=== PATIENT | male | born 1960 | race Hispanic/Latino ===

== ENCOUNTER 2019-10-24 23:44 | Inpatient (IN) | payer OTHER ==
[2019-10-25 00:33] LABS: INR 0.94 (0.85-1.15); PARTIAL THROMBOPLASTIN TIME 27.8 SEC (26.3-35.5); PROTHROMBIN TIME 9.9 SEC (9.6-11.6)
[2019-10-25 00:34] LABS: BILIRUBIN,TOTAL 0.3 mg/dL (0.2-1.0); CREATININE 0.9 mg/dL (0.5-1.5); TOTAL PROTEIN, SERUM 6.5 g/dL (6.0-8.3)
[2019-10-25] MEDS ORDERED: SODIUM CHLORIDE 0.9% 1000ML 1,000 ML IV ONE ×2 (00:35→03:10)
[2019-10-25 00:40] LABS: BASOPHILS % (AUTO) 0.2 % (0.0-5.0); EOSINOPHILS % (AUTO) 0.2 % (0.0-8.0); HEMATOCRIT 37.4 % (42-54); LYMPHOCYTES % (AUTO) 22.6 % (21.0-51.0); MEAN CORPUSCULAR HEMOGLOBIN 32.4 pg (27.0-33.0); MEAN CORPUSCULAR HGB CONC 36.1 g/dL (32.0-36.0); MEAN CORPUSCULAR VOLUME 89.7 fL (79-99); NEUTROPHILS % (AUTO) 70.3 % (40.0-77.0); PLATELET COUNT (AUTO) 292 K/uL (130-400); RED BLOOD CELL COUNT(AUTO) 4.17 MIL/uL (4.50-6.20); RED CELL DISTRIBUTION WIDTH 12.1 % (11.0-15.5); WHITE BLOOD COUNT (AUTO) 8.6 K/uL (4.8-10.8)
[2019-10-25] MEDS ORDERED: ASPIRIN 325 MG TABLET ONE (01:47)
[2019-10-25 02:25] LABS: APPEARANCE,URINE Clear (CLEAR); BILIRUBIN,URINE Negative (NEGATIVE); COLOR,URINE Yellow (YELLOW); GLUCOSE, URINE (UA) TRACE mg/dL (NEGATIVE); KETONES,URINE Negative (NEGATIVE); LEUKOCYTE ESTERASE ,URINE Negative (NEGATIVE); NITRATE,URINE Negative (NEGATIVE); OCCULT BLOOD,URINE Trace (NEGATIVE); PH,URINE 6.5 (5.0-8.0); PROTEIN,URINE POS 1+ mg/dL (NEGATIVE); UROBILINOGEN,URINE 0.2 mg/dL (0.2-1.0)
[2019-10-25] MEDS ORDERED: MORPHINE SULFATE 2 MG/ML 1ML SYG IV PRN (02:30)
[2019-10-25] MEDS ORDERED: ONDANSETRON HCL 4 MG/2 ML VIAL IV PRN (02:30)
[2019-10-25] MEDS ORDERED: NITROGLYCERIN 1GM/1 INCH PACKET TD SCH (02:30)
[2019-10-25] MEDS ORDERED: HYDRALAZINE HCL 20 MG/ML VIAL IV PRN (02:30)
[2019-10-25] MEDS ORDERED: CHLORDIAZEPOXIDE HCL 25 MG CAP PO PRN ×2 (02:30)
[2019-10-25] MEDS ORDERED: LORAZEPAM 2 MG/ML 1 ML VIAL IVP PRN ×2 (02:30)
[2019-10-25] MEDS ORDERED: PHARMACY COMMUNICATION MISC PRN (02:30)
[2019-10-25] MEDS ORDERED: LACTULOSE 20 GM/30 ML UDCUP PO PRN (02:30)
[2019-10-25] MEDS ORDERED: ACETAMINOPHEN 325 MG TAB PO PRN ×2 (02:30)
[2019-10-25] MEDS ORDERED: THIAMINE HCL 100 MG, FOLIC ACID 1 MG, M.V.I. IV [ADULT] 10 ML in SODIUM CHLORIDE 0.9% 1... IV SCH (02:30)
[2019-10-25 02:32] LABS: AMPHET/METH SCREEN,URINE NEGATIVE (NEGATIVE); BARBITURATE SCREEN, URINE NEGATIVE (NEGATIVE); BENZODIAZEPINES SCREEN,URINE NEGATIVE (NEGATIVE); CANNABINOID SCREEN,URINE POSITIVE (NEGATIVE); COCAINE SCREEN,URINE NEGATIVE (NEGATIVE); OPIATE SCREEN,URINE NEGATIVE (NEGATIVE); PHENCYCLIDINE SCREEN,URINE NEGATIVE (NEGATIVE)
[2019-10-25 02:34] LABS: BACTERIA,URINE None Seen /HPF (None Seen); RBC,URINE 0-1 /HPF (0-1); WBC,URINE None Seen /HPF (0-1)
[2019-10-25 02:59] LABS: CHOLESTEROL 196 mg/dL (<200); HDL CHOLESTEROL 62 mg/dL (29-71); LDL DIRECT 113 mg/dL (0-99); TRIGLYCERIDES 189 mg/dL (30-200)
[2019-10-25] MEDS ORDERED: THIAMINE HCL 100 MG/ML 2ML VIAL ONE (03:07)
[2019-10-25] MEDS ORDERED: M.V.I. IV [ADULT] 10 ML VIAL IV ONE (03:08)
[2019-10-25] MEDS ORDERED: FOLIC ACID 5 MG/ML 10 ML VIAL ONE (03:09)
[2019-10-25 06:24] LABS: BASOPHILS % (AUTO) 0.2 % (0.0-5.0); EOSINOPHILS % (AUTO) 0.4 % (0.0-8.0); HEMATOCRIT 33.8 % (42-54); LYMPHOCYTES % (AUTO) 22.8 % (21.0-51.0); MEAN CORPUSCULAR HEMOGLOBIN 31.9 pg (27.0-33.0); MEAN CORPUSCULAR HGB CONC 36.1 g/dL (32.0-36.0); MEAN CORPUSCULAR VOLUME 88.5 fL (79-99); MONOCYTES % (AUTO) 6.3 % (3.0-13.0); NEUTROPHILS % (AUTO) 69.7 % (40.0-77.0); PLATELET COUNT (AUTO) 244 K/uL (130-400); RED BLOOD CELL COUNT(AUTO) 3.82 MIL/uL (4.50-6.20); RED CELL DISTRIBUTION WIDTH 12.1 % (11.0-15.5); WHITE BLOOD COUNT (AUTO) 8.2 K/uL (4.8-10.8)
[2019-10-25 07:17] LABS: CREATININE 0.8 mg/dL (0.5-1.5)
[2019-10-25] MEDS ORDERED: INSULIN HUMULIN R 100 UNIT/ML 3ML SQ SCH (07:30)
[2019-10-25] MEDS ORDERED: CHLORDIAZEPOXIDE HCL 25 MG CAP ONE (07:54)
[2019-10-25] MEDS ORDERED: ENOXAPARIN SODIUM 40 MG/0.4 ML SYRINGE SQ SCH (09:00)
[2019-10-25] MEDS ORDERED: ASPIRIN 325 MG TABLET PO SCH (09:00)
[2019-10-25] MEDS ORDERED: METOPROLOL TARTRATE 25 MG TAB PO SCH (09:00)
[2019-10-25] MEDS ORDERED: FAMOTIDINE 20MG TAB 20 MG TAB PO SCH (09:00)
[2019-10-25] MEDS ORDERED: NITROGLYCERIN 1GM/1 INCH PACKET TD ONE (12:47)
[2019-10-25] MEDS ORDERED: FAMOTIDINE 20MG TAB 20 MG TAB ONE (12:47)
[2019-10-25] MEDS ORDERED: ENOXAPARIN SODIUM 40 MG/0.4 ML SYRINGE SQ ONE (12:47)
[2019-10-25] MEDS ORDERED: METOPROLOL TARTRATE 25 MG TAB ONE (12:48)
[2019-10-25] MEDS ORDERED: CLOPIDOGREL BISULFATE 300 MG TAB PO SCH (14:00)
[2019-10-25] MEDS ORDERED: ATORVASTATIN CALCIUM 20 MG TABLET PO SCH (21:00)
[2019-10-26] MEDS ORDERED: CLOPIDOGREL BISULFATE 75 MG TAB PO SCH (09:00)
--- NOTE | 2019-10-26 09:11 | NUR ---
IA NOTE PATIENT DISCHARGED BEFORE I WAS ABLE TO SEE PATIENT. PER NURSE, NO NEEDS OR CONCERNS VOICED REGARDING DISCHARGE PLANNING. PATIENT DISCHARGED HOME. Addendum: 10/26/19 at 0912 by SHANICE FINCH RN CM Amended: Links added.
== END 2019-10-25 14:22 | disposition left against medical advice (07) | DRG 313 ==
LOC: EDH 23:44 → EDHIP 23:45
PROVIDERS: ADMIT Internal Medicine; ATTEND Internal Medicine
DX: R07.9 Chest pain, unspecified (principal); E78.5 Hyperlipidemia, unspecified; I10 Essential (primary) hypertension; F32.9 Major depressive disorder, single episode, unspecified; E11.40 Type 2 diabetes mellitus with diabetic neuropathy, unspecified; Z82.49 Family history of ischemic heart disease and other diseases of the circulatory system; Z83.3 Family history of diabetes mellitus; Z53.29 Procedure and treatment not carried out because of patient's decision for other reasons
CPT/HCPCS: 36415; 70450; 71045; 72125; 80048; 80053; 80061; 80305; 81001; 82550; 83036; 84484; 85025; 85610; 85730; 93005; G0378; G0480; J1650; J3411; J3490; J7030

== ENCOUNTER 2022-12-24 23:22 | Inpatient (IN) | payer OTHER ==
[~2022-12-24] VITALS: Ht 167.6 cm; Wt 54.1 kg
[2022-12-24] MEDS ORDERED: 0.9%NACL 1000ML 1,000 ML IV ONE (23:40)
[2022-12-24] MEDS ORDERED: ACETAMINOPHEN 500 MG TABLET ONE (23:40)
[2022-12-24 23:49] LABS: BASOPHILS % (AUTO) 0.2 % (0.0-5.0); EOSINOPHILS % (AUTO) 0.5 % (0.0-8.0); HEMATOCRIT 34.4 % (42-54); MEAN CORPUSCULAR HGB CONC 33.1 g/dL (32.0-36.0); MEAN CORPUSCULAR VOLUME 90.5 fL (79-99); MONOCYTES % (AUTO) 8.2 % (3.0-13.0); NEUTROPHILS % (AUTO) 79.8 % (40.0-77.0); PLATELET COUNT (AUTO) 246 K/uL (130-400); RED CELL DISTRIBUTION WIDTH 13.5 % (11.0-15.5); WHITE BLOOD COUNT (AUTO) 9.6 K/uL (4.8-10.8)
[2022-12-25] MEDS ORDERED: ACETAMINOPHEN 500 MG TABLET PO ONE
[2022-12-25 00:14] LABS: B-TYPE NATRIURETIC PEPTIDE 3080 pg/mL (0-100)
[2022-12-25 00:23] LABS: ALBUMIN 2.8 g/dL (3.5-5.0); CREATININE 1.6 mg/dL (0.5-1.5); POTASSIUM 4.4 mmol/L (3.5-5.1); TOTAL PROTEIN, SERUM 5.9 g/dL (6.0-8.3)
[2022-12-25] MEDS ORDERED: FUROSEMIDE 40MG VIAL IV ONE (01:00)
[2022-12-25] MEDS ORDERED: MORPHINE 2 MG SYG IV PRN (01:00)
[2022-12-25] MEDS ORDERED: ASPIRIN 325MG TAB PO ONE (01:00)
[2022-12-25] MEDS ORDERED: DIPHENHYDRAMINE HCL 25 MG CAPSULE PO PRN (01:00)
[2022-12-25] MEDS ORDERED: MAG/ALUM/SIMETH 30 ML UDCUP PO PRN (01:00)
[2022-12-25] MEDS ORDERED: LACTULOSE 20 GM/30 ML UDCUP PO PRN (01:00)
[2022-12-25] MEDS ORDERED: ACETAMINOPHEN 325 MG TAB PO PRN (01:00)
[2022-12-25] MEDS ORDERED: GUAIFENESIN-DM 200/20 MG 10 ML PO PRN (01:00)
[2022-12-25] MEDS ORDERED: ENOXAPARIN SODIUM 60 MG/0.6 ML SQ ONE (01:00)
[2022-12-25] MEDS ORDERED: MORPHINE 4 MG SYG IV PRN (01:00)
[2022-12-25] MEDS ORDERED: ONDANSETRON 4MG INJ IV PRN (01:00)
[2022-12-25 01:13] LABS: APPEARANCE,URINE CLEAR (CLEAR); BILIRUBIN,URINE 0.5 mg/dL (NEGATIVE); COLOR,URINE YELLOW (YELLOW); GLUCOSE, URINE (UA) 300 mg/dL (NEGATIVE); KETONES,URINE NEGATIVE (NEGATIVE); LEUKOCYTE ESTERASE ,URINE NEGATIVE Leu/uL (NEGATIVE); NITRATE,URINE NEGATIVE (NEGATIVE); OCCULT BLOOD,URINE MODERATE (NEGATIVE); PROTEIN,URINE 600 mg/dL (NEGATIVE)
[2022-12-25 01:20] LABS: AMPHET/METH SCREEN,URINE NEGATIVE (NEGATIVE); BARBITURATE SCREEN, URINE NEGATIVE (NEGATIVE); BENZODIAZEPINES SCREEN,URINE NEGATIVE (NEGATIVE); CANNABINOID SCREEN,URINE POSITIVE (NEGATIVE); COCAINE SCREEN,URINE POSITIVE (NEGATIVE); OPIATE SCREEN,URINE NEGATIVE (NEGATIVE); PHENCYCLIDINE SCREEN,URINE NEGATIVE (NEGATIVE)
[2022-12-25 01:27] LABS: MUCUS,URINE RARE LPF (None Seen)
[2022-12-25] MEDS ORDERED: NITROGLYCERIN 50MG/D5W 250ML 250 BOT IV SCH (04:34)
[2022-12-25] MEDS ORDERED: ZOSYN 3.375GM+NS 50ML 50 ML IVPB SCH (05:00)
[2022-12-25] MEDS ORDERED: IPRATROPIUM/ALBUTEROL SULFATE 3 ML SOLUTION IH PRN (05:00)
[2022-12-25] MEDS ORDERED: FUROSEMIDE 40MG VIAL IV SCH (05:00)
[2022-12-25] MEDS ORDERED: DEXTROSE 50%-WATER 50 ML DISP.SYRIN IV PRN (06:00)
[2022-12-25] MEDS ORDERED: GLUCAGON 1MG KIT 1 MG ML IM PRN (06:00)
[2022-12-25 07:54] LABS: BASOPHILS % (AUTO) 0.4 % (0.0-5.0); EOSINOPHILS % (AUTO) 1.1 % (0.0-8.0); HEMATOCRIT 35.5 % (42-54); LYMPHOCYTES % (AUTO) 16.2 % (21.0-51.0); MEAN CORPUSCULAR HEMOGLOBIN 30.4 pg (27.0-33.0); MEAN CORPUSCULAR HGB CONC 33.5 g/dL (32.0-36.0); MEAN CORPUSCULAR VOLUME 90.8 fL (79-99); MONOCYTES % (AUTO) 9.2 % (3.0-13.0); NEUTROPHILS % (AUTO) 72.7 % (40.0-77.0); PLATELET COUNT (AUTO) 230 K/uL (130-400); RED BLOOD CELL COUNT(AUTO) 3.91 MIL/uL (4.50-6.20); RED CELL DISTRIBUTION WIDTH 13.5 % (11.0-15.5); WHITE BLOOD COUNT (AUTO) 8.3 K/uL (4.8-10.8)
[2022-12-25 08:17] LABS: HEMOGLOBIN A1C 8.3 % (4.0-6.0)
[2022-12-25 08:27] LABS: ALBUMIN 2.6 g/dL (3.5-5.0); CREATININE 1.6 mg/dL (0.5-1.5); TOTAL PROTEIN, SERUM 6.3 g/dL (6.0-8.3)
[2022-12-25 10:00] VITALS: BP 142/90
[2022-12-25 11:00] VITALS: BP 158/112
[2022-12-25] MEDS ORDERED: HYDRALAZINE 20MG/ML VIAL IV PRN (11:00)
[2022-12-25 12:00] VITALS: BP 148/103
[2022-12-25] MEDS: ZOSYN 3.375GM+NS 50ML 50 ML IVPB SCH ×3 (12:13→21:01)
[2022-12-25] MEDS: FAMOTIDINE 20MG VIAL IV SCH ×2 (12:13→21:02)
[2022-12-25] MEDS: FUROSEMIDE 40MG VIAL IV SCH ×2 (12:13→21:03)
[2022-12-25] MEDS: ASPIRIN 81MG CHEW TAB PO SCH (12:13)
[2022-12-25] MEDS: INSULIN HUMULIN R 100 UNIT/ML 3ML SQ SCH ×4 (12:14→22:09)
[2022-12-25 16:00] VITALS: BP 145/103
[2022-12-25 20:00] VITALS: BP 141/97
[2022-12-25] MEDS: SACUBITRIL/VALSARTAN 1 EACH TABLET PO SCH (21:02)
[2022-12-25] MEDS: ATORVASTATIN 40 MG TABLET PO SCH (21:02)
[2022-12-26] VITALS: BP 148/94
[2022-12-26 04:00] VITALS: BP 148/97
[2022-12-26] MEDS: ZOSYN 3.375GM+NS 50ML 50 ML IVPB SCH ×3 (05:16→20:24)
[2022-12-26] MEDS: INSULIN HUMULIN R 100 UNIT/ML 3ML SQ SCH ×4 (05:20→20:29)
[2022-12-26 07:47] VITALS: BP 144/91
[2022-12-26] MEDS: FAMOTIDINE 20MG VIAL IV SCH (09:10)
[2022-12-26] MEDS: EMPAGLIFLOZIN 10MG TABLET PO SCH (09:10)
[2022-12-26] MEDS: ASPIRIN 81MG CHEW TAB PO SCH (09:10)
[2022-12-26] MEDS: SACUBITRIL/VALSARTAN 1 EACH TABLET PO SCH ×2 (09:11→20:24)
[2022-12-26] MEDS: FUROSEMIDE 40MG VIAL IV SCH ×2 (09:11→20:24)
[2022-12-26 11:37] VITALS: BP 138/90
[2022-12-26 15:59] VITALS: BP 144/91
[2022-12-26] MEDS ORDERED: DULOXETINE HCL 30 MG CAP PO SCH (18:30)
[2022-12-26] MEDS ORDERED: ACETAMINOPHEN 500 MG TABLET PO PRN (18:30)
[2022-12-26 18:37] LABS: BASOPHILS % (AUTO) 0.2 % (0.0-5.0); HEMATOCRIT 44.9 % (42-54); MEAN CORPUSCULAR HEMOGLOBIN 29.7 pg (27.0-33.0); MEAN CORPUSCULAR HGB CONC 32.5 g/dL (32.0-36.0); MEAN CORPUSCULAR VOLUME 91.3 fL (79-99); MONOCYTES % (AUTO) 10.8 % (3.0-13.0); NEUTROPHILS % (AUTO) 74.6 % (40.0-77.0); PLATELET COUNT (AUTO) 280 K/uL (130-400); RED BLOOD CELL COUNT(AUTO) 4.92 MIL/uL (4.50-6.20); RED CELL DISTRIBUTION WIDTH 13.2 % (11.0-15.5); WHITE BLOOD COUNT (AUTO) 8.1 K/uL (4.8-10.8)
[2022-12-26 18:54] LABS: CREATININE 1.7 mg/dL (0.5-1.5); POTASSIUM 5.2 mmol/L (3.5-5.1)
[2022-12-26 18:58] LABS: MAGNESIUM 1.9 mg/dL (1.80-2.40); PHOSPHORUS 3.9 mg/dL (2.5-4.9)
[2022-12-26] MEDS: ALBUTEROL 0.083% 2.5 MG/3 ML INH IH SCH ×2 (19:11→23:55)
[2022-12-26] MEDS: BUDESONIDE 0.5 MG/2 ML INH IH SCH (19:11)
[2022-12-26 19:12] LABS: B-TYPE NATRIURETIC PEPTIDE 3590 pg/mL (0-100)
[2022-12-26 20:00] VITALS: BP 150/99
[2022-12-26] MEDS: ATORVASTATIN 40 MG TABLET PO SCH (20:24)
[2022-12-26] MEDS: SOLU-MEDROL 40MG VIAL IVP SCH (20:24)
[2022-12-26] MEDS: GABAPENTIN 300 MG CAPSULE PO SCH (20:25)
[2022-12-27] VITALS: BP 154/71
[2022-12-27 04:00] VITALS: BP 138/90
[2022-12-27] MEDS: ZOSYN 3.375GM+NS 50ML 50 ML IVPB SCH ×2 (04:29→15:13)
[2022-12-27 05:14] LABS: BASOPHILS % (AUTO) 0.1 % (0.0-5.0); LYMPHOCYTES % (AUTO) 4.9 % (21.0-51.0); MEAN CORPUSCULAR HEMOGLOBIN 29.8 pg (27.0-33.0); MEAN CORPUSCULAR HGB CONC 33.4 g/dL (32.0-36.0); MEAN CORPUSCULAR VOLUME 89.1 fL (79-99); MONOCYTES % (AUTO) 2.4 % (3.0-13.0); NEUTROPHILS % (AUTO) 92.2 % (40.0-77.0); PLATELET COUNT (AUTO) 293 K/uL (130-400); RED BLOOD CELL COUNT(AUTO) 4.94 MIL/uL (4.50-6.20); WHITE BLOOD COUNT (AUTO) 6.7 K/uL (4.8-10.8)
[2022-12-27] MEDS: INSULIN HUMULIN R 100 UNIT/ML 3ML SQ SCH ×3 (05:56→16:49)
[2022-12-27 06:00] LABS: CREATININE 1.5 mg/dL (0.5-1.5); MAGNESIUM 1.9 mg/dL (1.80-2.40); PHOSPHORUS 4.7 mg/dL (2.5-4.9)
[2022-12-27] MEDS: ALBUTEROL 0.083% 2.5 MG/3 ML INH IH SCH (06:29)
[2022-12-27] MEDS: BUDESONIDE 0.5 MG/2 ML INH IH SCH (06:29)
[2022-12-27] MEDS: GLIPIZIDE 5 MG TABLET PO SCH ×2 (06:32→16:47)
[2022-12-27 06:45] LABS: B-TYPE NATRIURETIC PEPTIDE 1680 pg/mL (0-100)
[2022-12-27] MEDS: SOLU-MEDROL 40MG VIAL IVP SCH (07:28)
[2022-12-27] MEDS: FUROSEMIDE 40MG VIAL IV SCH (07:29)
[2022-12-27] MEDS: SACUBITRIL/VALSARTAN 1 EACH TABLET PO SCH (07:29)
[2022-12-27 07:30] VITALS: BP 132/82
[2022-12-27] MEDS: ASPIRIN 81MG CHEW TAB PO SCH (07:30)
[2022-12-27] MEDS: GABAPENTIN 300 MG CAPSULE PO SCH ×2 (07:31→15:14)
[2022-12-27] MEDS: EMPAGLIFLOZIN 10MG TABLET PO SCH (07:31)
[2022-12-27] MEDS ORDERED: FAMOTIDINE 20MG TAB PO SCH (09:00)
[2022-12-27] MEDS ORDERED: DULOXETINE HCL 30 MG CAP PO SCH (09:00)
[2022-12-27 11:00] VITALS: BP 113/80
[2022-12-27] MEDS ORDERED: PRED20TA3 PO (15:05)
[2022-12-27] MEDS ORDERED: GLIP5TAB11 PO (15:05)
[2022-12-27] MEDS ORDERED: ATOR40TA69 PO (15:05)
[2022-12-27] MEDS ORDERED: EMPA10TA PO (15:05)
[2022-12-27] MEDS ORDERED: ASPI-1005 PO (15:05)
[2022-12-27] MEDS ORDERED: SACU1TAB PO (15:05)
[2022-12-27] MEDS ORDERED: DOXY100C5 PO (15:35)
[2022-12-27 16:00] VITALS: BP 121/81
== END 2022-12-27 18:40 | disposition home or self-care (01) | DRG 280 ==
LOC: EDH 23:22 → EDHIP 23:23 → 2CH 12-25 08:24 → 4BH 12-25 18:33
PROVIDERS: ADMIT Internal Medicine; ATTEND Internal Medicine
DX: I13.0 Hypertensive heart and chronic kidney disease with heart failure and stage 1 through stage 4 chronic kidney disease, or unspecified chronic kidney disease (principal); I50.43 Acute on chronic combined systolic (congestive) and diastolic (congestive) heart failure; I21.A1 Myocardial infarction type 2; N17.9 Acute kidney failure, unspecified; Z20.822 Contact with and (suspected) exposure to COVID-19; J44.1 Chronic obstructive pulmonary disease with (acute) exacerbation; I27.20 Pulmonary hypertension, unspecified; E11.22 Type 2 diabetes mellitus with diabetic chronic kidney disease; E11.65 Type 2 diabetes mellitus with hyperglycemia; E78.00 Pure hypercholesterolemia, unspecified; F12.10 Cannabis abuse, uncomplicated; F14.10 Cocaine abuse, uncomplicated; G89.29 Other chronic pain; I34.0 Nonrheumatic mitral (valve) insufficiency; N18.9 Chronic kidney disease, unspecified; Z59.00 Homelessness unspecified; Z72.0 Tobacco use; Z79.84 Long term (current) use of oral hypoglycemic drugs; Z79.899 Other long term (current) drug therapy; Z82.49 Family history of ischemic heart disease and other diseases of the circulatory system; Z91.199 Patient's noncompliance with other medical treatment and regimen due to unspecified reason; Z83.3 Family history of diabetes mellitus; Z86.73 Personal history of transient ischemic attack (TIA), and cerebral infarction without residual deficits
CPT/HCPCS: 36415; 71045; 80048; 80053; 80305; 81001; 82948; 83036; 83605; 83735; 83880; 84100; 84145; 84484; 85025; 87040; 87635; 87804; 93005; 94640; C9803; G0378; J1650; J1815; J1940; J2543; J2920; J3490; J7030

== ENCOUNTER 2023-02-15 03:42 | Inpatient (IN) | payer OTHER ==
[~2023-02-15] VITALS: Ht 167.6 cm; Wt 59.2 kg
[~2023-02-15 03:42] MED LIST: ASPI-1005 PO; ATOR40TA69 PO; EMPA10TA PO; GLIP5TAB11 PO; SACU1TAB PO
[2023-02-15 04:14] LABS: BASOPHILS % (AUTO) 0.2 % (0.0-5.0); EOSINOPHILS % (AUTO) 0.5 % (0.0-8.0); HEMATOCRIT 31.2 % (42-54); LYMPHOCYTES % (AUTO) 20.3 % (21.0-51.0); MEAN CORPUSCULAR HEMOGLOBIN 27.6 pg (27.0-33.0); MEAN CORPUSCULAR HGB CONC 32.7 g/dL (32.0-36.0); MEAN CORPUSCULAR VOLUME 84.6 fL (79-99); MONOCYTES % (AUTO) 13.2 % (3.0-13.0); NEUTROPHILS % (AUTO) 65.3 % (40.0-77.0); PLATELET COUNT (AUTO) 228 K/uL (130-400); RED BLOOD CELL COUNT(AUTO) 3.69 MIL/uL (4.50-6.20); RED CELL DISTRIBUTION WIDTH 13.9 % (11.0-15.5); WHITE BLOOD COUNT (AUTO) 6.2 K/uL (4.8-10.8)
[2023-02-15 04:31] LABS: ALBUMIN 2.7 g/dL (3.5-5.0); CREATININE 1.8 mg/dL (0.5-1.5); POTASSIUM 4.9 mmol/L (3.5-5.1); TOTAL PROTEIN, SERUM 5.8 g/dL (6.0-8.3)
[2023-02-15 04:56] LABS: APPEARANCE,URINE CLEAR (CLEAR); BILIRUBIN,URINE NEGATIVE (NEGATIVE); COLOR,URINE LIGHT-YELLOW (YELLOW); GLUCOSE, URINE (UA) >=1000 mg/dL (NEGATIVE); KETONES,URINE NEGATIVE (NEGATIVE); LEUKOCYTE ESTERASE ,URINE NEGATIVE Leu/uL (NEGATIVE); NITRATE,URINE NEGATIVE (NEGATIVE); OCCULT BLOOD,URINE SMALL (NEGATIVE); PH,URINE 5.5 (5.0-8.0); PROTEIN,URINE 200 mg/dL (NEGATIVE); UROBILINOGEN,URINE 0.2 mg/dL (0.2-1.0)
[2023-02-15] MEDS ORDERED: NITROGLYCERIN 1GM OINT 1 INCH/1GM TD ONE (05:00)
[2023-02-15] MEDS ORDERED: ASPIRIN 325MG TAB PO ONE (05:00)
[2023-02-15] MEDS ORDERED: INSULIN HUMULIN R 100 UNIT/ML 3ML IV ONE (05:00)
[2023-02-15 05:01] LABS: AMPHET/METH SCREEN,URINE NEGATIVE (NEGATIVE); BARBITURATE SCREEN, URINE NEGATIVE (NEGATIVE); BENZODIAZEPINES SCREEN,URINE NEGATIVE (NEGATIVE); CANNABINOID SCREEN,URINE POSITIVE (NEGATIVE); COCAINE SCREEN,URINE POSITIVE (NEGATIVE); OPIATE SCREEN,URINE NEGATIVE (NEGATIVE); PHENCYCLIDINE SCREEN,URINE NEGATIVE (NEGATIVE)
[2023-02-15] MEDS ORDERED: KCL 20 MEQ ERTAB PO PRN (06:00)
[2023-02-15] MEDS ORDERED: POTASSIUM CHLORIDE 20MEQ/100ML 100 ML IV PRN (06:00)
[2023-02-15] MEDS: NITROGLYCERIN 1GM OINT 1 INCH/1GM TD SCH ×3 (06:00→20:39)
[2023-02-15] MEDS ORDERED: MORPHINE 2 MG SYG IV PRN (06:00)
[2023-02-15] MEDS ORDERED: MAGNESIUM 2GM PREMIX 50ML 50 ML IV PRN (06:00)
[2023-02-15] MEDS ORDERED: ACETAMINOPHEN 325 MG TAB PO PRN ×2 (06:00)
[2023-02-15] MEDS ORDERED: POTASSIUM CHLORIDE 10% ELIXIR 20 MEQ/15 ML UDCUP PO PRN (06:00)
[2023-02-15] MEDS ORDERED: ONDANSETRON 4MG INJ IV PRN (06:00)
[2023-02-15] MEDS ORDERED: MORPHINE 4 MG SYG IV PRN (06:00)
[2023-02-15] MEDS ORDERED: HEPARIN 5,000 UNIT VIAL SQ PRN (06:30)
[2023-02-15] MEDS: HEPARIN 25,000 UNITS/250ML D5W 250 ML IV SCH ×3 (07:03→20:39)
[2023-02-15 07:16] LABS: ABG OXYGEN SATURATION 56.1 % (95.0-99.0); BASE EXCESS,VENOUS BLOOD GAS -5.7 (-2.0-3.0); HCO3,VENOUS BLOOD GAS 19.7 (21.0-28.0); PCO2,VENOUS BLOOD GAS 38 (35-48); PH,VENOUS BLOOD GAS 7.328 (7.350-7.450)
[2023-02-15] MEDS: INSULIN HUMULIN R 100 UNIT/ML 3ML SQ SCH ×4 (07:30→20:48)
[2023-02-15] MEDS ORDERED: FUROSEMIDE 40 MG TABLET PO SCH (09:00)
[2023-02-15] MEDS: ASPIRIN 81MG CHEW TAB PO SCH (09:24)
[2023-02-15] MEDS: FAMOTIDINE 20MG TAB PO SCH (09:24)
[2023-02-15 11:45] LABS: PROTHROMBIN TIME 10.9 SEC (9.6-11.6)
[2023-02-15 11:46] LABS: PARTIAL THROMBOPLASTIN TIME 58.6 SEC (26.3-35.5)
[2023-02-15 12:21] LABS: CREATININE,URINE RANDOM 10 mg/dL (30-135); POTASSIUM,URINE RANDOM 16 mmol/L (25-125); SODIUM,URINE RANDOM 116 mmol/l (40-220)
[2023-02-15 13:06] LABS: APPEARANCE,URINE CLEAR (CLEAR); BILIRUBIN,URINE NEGATIVE (NEGATIVE); COLOR,URINE COLORLESS (YELLOW); GLUCOSE, URINE (UA) NEGATIVE (NEGATIVE); KETONES,URINE NEGATIVE (NEGATIVE); LEUKOCYTE ESTERASE ,URINE NEGATIVE Leu/uL (NEGATIVE); NITRATE,URINE NEGATIVE (NEGATIVE); PROTEIN,URINE 50 mg/dL (NEGATIVE); UROBILINOGEN,URINE 0.2 mg/dL (0.2-1.0)
[2023-02-15 13:08] LABS: MUCUS,URINE RARE LPF (None Seen); RBC,URINE 0-1 /HPF (0-1); WBC,URINE 0-1 /HPF (0-1)
[2023-02-15 13:24] LABS: HEMOGLOBIN A1C 10.7 % (4.0-6.0)
[2023-02-15 18:35] LABS: INR 0.98 (0.85-1.15); PROTHROMBIN TIME 10.7 SEC (9.6-11.6)
[2023-02-15 19:00] VITALS: BP 126/103
[2023-02-15] MEDS: FUROSEMIDE 20MG VIAL IV SCH (20:39)
[2023-02-15 21:42] VITALS: BP 140/99
[2023-02-16] VITALS: BP 126/92
[2023-02-16] MEDS: HEPARIN 25,000 UNITS/250ML D5W 250 ML IV SCH ×2 (00:30→05:17)
[2023-02-16 00:39] LABS: INR 0.99 (0.85-1.15); PROTHROMBIN TIME 10.8 SEC (9.6-11.6)
[2023-02-16 00:41] LABS: PARTIAL THROMBOPLASTIN TIME 39.6 SEC (26.3-35.5)
[2023-02-16 04:00] VITALS: BP 133/97
[2023-02-16 04:35] LABS: BASOPHILS % (AUTO) 0.4 % (0.0-5.0); EOSINOPHILS % (AUTO) 1.5 % (0.0-8.0); LYMPHOCYTES % (AUTO) 23.7 % (21.0-51.0); MEAN CORPUSCULAR HEMOGLOBIN 27.6 pg (27.0-33.0); MEAN CORPUSCULAR HGB CONC 32.9 g/dL (32.0-36.0); MEAN CORPUSCULAR VOLUME 83.9 fL (79-99); MONOCYTES % (AUTO) 9.6 % (3.0-13.0); NEUTROPHILS % (AUTO) 64.1 % (40.0-77.0); PLATELET COUNT (AUTO) 297 K/uL (130-400); RED BLOOD CELL COUNT(AUTO) 4.17 MIL/uL (4.50-6.20); RED CELL DISTRIBUTION WIDTH 14.1 % (11.0-15.5); WHITE BLOOD COUNT (AUTO) 7.5 K/uL (4.8-10.8)
[2023-02-16 04:53] LABS: ALBUMIN 2.7 g/dL (3.5-5.0); CREATININE 1.3 mg/dL (0.5-1.5); POTASSIUM 4.1 mmol/L (3.5-5.1); THYROID STIMULATING HORMONE 3.74 uIU/mL (0.36-3.74)
[2023-02-16] MEDS: NITROGLYCERIN 1GM OINT 1 INCH/1GM TD SCH (05:07)
[2023-02-16] MEDS: INSULIN HUMULIN R 100 UNIT/ML 3ML SQ SCH ×4 (05:16→20:38)
[2023-02-16 06:05] LABS: PROTHROMBIN TIME 10.9 SEC (9.6-11.6)
[2023-02-16 06:06] LABS: PARTIAL THROMBOPLASTIN TIME 42.2 SEC (26.3-35.5)
[2023-02-16] MEDS: FUROSEMIDE 20MG VIAL IV SCH (06:21)
[2023-02-16 08:00] VITALS: BP 144/110
[2023-02-16] MEDS: ASPIRIN 81MG CHEW TAB PO SCH (08:57)
[2023-02-16] MEDS: FAMOTIDINE 20MG TAB PO SCH (08:57)
[2023-02-16] MEDS ORDERED: AMLODIPINE 2.5 MG TAB PO SCH (09:00)
[2023-02-16] MEDS ORDERED: METOPROLOL SUCCINATE 25 MG TAB.SR.24H PO SCH (09:30)
[2023-02-16 12:00] VITALS: BP 136/95
[2023-02-16 12:17] LABS: INR 0.95 (0.85-1.15); PROTHROMBIN TIME 10.4 SEC (9.6-11.6)
[2023-02-16 12:19] LABS: CREATININE 1.5 mg/dL (0.5-1.5); PARTIAL THROMBOPLASTIN TIME 25.4 SEC (26.3-35.5); POTASSIUM 5.2 mmol/L (3.5-5.1)
[2023-02-16 16:00] VITALS: BP 128/91
[2023-02-16 20:00] VITALS: BP 126/84
[2023-02-16] MEDS ORDERED: LOSARTAN 25 MG TABLET PO SCH (21:00)
[2023-02-17] VITALS: BP 102/71
[2023-02-17 04:00] VITALS: BP 112/75
[2023-02-17 04:28] LABS: HEMATOCRIT 33.4 % (42-54); MEAN CORPUSCULAR HEMOGLOBIN 26.8 pg (27.0-33.0); MEAN CORPUSCULAR HGB CONC 31.4 g/dL (32.0-36.0); MEAN CORPUSCULAR VOLUME 85.2 fL (79-99); RED BLOOD CELL COUNT(AUTO) 3.92 MIL/uL (4.50-6.20); RED CELL DISTRIBUTION WIDTH 14.2 % (11.0-15.5); WHITE BLOOD COUNT (AUTO) 5.9 K/uL (4.8-10.8)
[2023-02-17 04:53] LABS: CREATININE 1.5 mg/dL (0.5-1.5); POTASSIUM 4.5 mmol/L (3.5-5.1)
[2023-02-17] MEDS: INSULIN HUMULIN R 100 UNIT/ML 3ML SQ SCH ×3 (05:37→15:45)
[2023-02-17] MEDS: FAMOTIDINE 20MG TAB PO SCH (07:39)
[2023-02-17] MEDS: ASPIRIN 81MG CHEW TAB PO SCH (07:39)
[2023-02-17 08:00] VITALS: BP 132/87
[2023-02-17] MEDS ORDERED: FUROSEMIDE 40 MG TABLET PO SCH (09:00)
[2023-02-17] MEDS ORDERED: ENOXAPARIN SODIUM 40 MG/0.4 ML SYRINGE SQ SCH (09:00)
[2023-02-17] MEDS ORDERED: ASPIRIN 81MG CHEW TAB PO SCH (09:00)
[2023-02-17 11:00] VITALS: BP 137/94
[2023-02-17] MEDS ORDERED: EMPA10TA PO (12:57)
[2023-02-17] MEDS ORDERED: ATOR40TA71 PO (12:57)
[2023-02-17] MEDS ORDERED: GLIP5TAB11 PO (12:57)
[2023-02-17] MEDS ORDERED: FURO40TA5 PO (12:57)
[2023-02-17] MEDS ORDERED: AEC81 PO (12:57)
[2023-02-17] MEDS ORDERED: SACU1TAB PO (12:57)
== END 2023-02-17 17:50 | disposition home or self-care (01) | DRG 280 ==
LOC: EDH 03:42 → EDHIP 03:43 → 4BH 19:22
PROVIDERS: ADMIT Hospitalist; ATTEND Hospitalist
DX: I13.0 Hypertensive heart and chronic kidney disease with heart failure and stage 1 through stage 4 chronic kidney disease, or unspecified chronic kidney disease (principal); I21.A1 Myocardial infarction type 2; I50.43 Acute on chronic combined systolic (congestive) and diastolic (congestive) heart failure; E87.1 Hypo-osmolality and hyponatremia; E87.20 Acidosis, unspecified; N17.9 Acute kidney failure, unspecified; I42.9 Cardiomyopathy, unspecified; J44.9 Chronic obstructive pulmonary disease, unspecified; E11.65 Type 2 diabetes mellitus with hyperglycemia; D64.9 Anemia, unspecified; E11.22 Type 2 diabetes mellitus with diabetic chronic kidney disease; E78.00 Pure hypercholesterolemia, unspecified; F12.90 Cannabis use, unspecified, uncomplicated; F14.10 Cocaine abuse, uncomplicated; N18.9 Chronic kidney disease, unspecified; Z59.00 Homelessness unspecified; Z72.0 Tobacco use; Z79.82 Long term (current) use of aspirin; Z82.49 Family history of ischemic heart disease and other diseases of the circulatory system; Z83.3 Family history of diabetes mellitus; Z91.199 Patient's noncompliance with other medical treatment and regimen due to unspecified reason; Z95.5 Presence of coronary angioplasty implant and graft
CPT/HCPCS: 36415; 36600; 71045; 80048; 80053; 80305; 81001; 82010; 82533; 82570; 82803; 82948; 83036; 83605; 83735; 83880; 83935; 84100; 84133; 84300; 84443; 84484; 84550; 85025; 85027; 85610; 85730; 86850; 86900; 86901; 93005; G0378; J1644; J1650; J1815; J1940

== ENCOUNTER 2023-03-22 08:06 | Inpatient (IN) | payer OTHER ==
[~2023-03-22] VITALS: Ht 167.6 cm; Wt 55.2 kg
[~2023-03-22 08:06] MED LIST changes: +AEC81 PO; -ASPI-1005 PO; -ATOR40TA69 PO; +ATOR40TA71 PO; +FURO40TA5 PO
[2023-03-22 08:31] LABS: BASOPHILS % (AUTO) 0.4 % (0.0-5.0); EOSINOPHILS % (AUTO) 0.9 % (0.0-8.0); HEMATOCRIT 35.9 % (42-54); LYMPHOCYTES % (AUTO) 18.5 % (21.0-51.0); MEAN CORPUSCULAR HEMOGLOBIN 27.2 pg (27.0-33.0); MEAN CORPUSCULAR HGB CONC 31.5 g/dL (32.0-36.0); MEAN CORPUSCULAR VOLUME 86.5 fL (79-99); MONOCYTES % (AUTO) 14.4 % (3.0-13.0); NEUTROPHILS % (AUTO) 65.1 % (40.0-77.0); PLATELET COUNT (AUTO) 157 K/uL (130-400); RED BLOOD CELL COUNT(AUTO) 4.15 MIL/uL (4.50-6.20); RED CELL DISTRIBUTION WIDTH 19.3 % (11.0-15.5); WHITE BLOOD COUNT (AUTO) 5.6 K/uL (4.8-10.8)
[2023-03-22 08:45] LABS: ALBUMIN 3.6 g/dL (3.5-5.0); CREATININE 1.8 mg/dL (0.5-1.5); POTASSIUM 5.4 mmol/L (3.5-5.1)
[2023-03-22 08:53] LABS: MAGNESIUM 2.1 mg/dL (1.80-2.40); TOTAL PROTEIN, SERUM 7.3 g/dL (6.0-8.3)
[2023-03-22 08:56] LABS: APPEARANCE,URINE CLEAR (CLEAR); BILIRUBIN,URINE NEGATIVE (NEGATIVE); COLOR,URINE LIGHT-YELLOW (YELLOW); GLUCOSE, URINE (UA) NEGATIVE (NEGATIVE); KETONES,URINE NEGATIVE (NEGATIVE); LEUKOCYTE ESTERASE ,URINE NEGATIVE Leu/uL (NEGATIVE); NITRATE,URINE NEGATIVE (NEGATIVE); PROTEIN,URINE 200 mg/dL (NEGATIVE)
[2023-03-22 09:13] LABS: WBC,URINE 0-1 /HPF (0-1)
[2023-03-22 09:49] LABS: B-TYPE NATRIURETIC PEPTIDE 2250 pg/mL (0-100)
[2023-03-22] MEDS ORDERED: ASPIRIN 325MG TAB PO ONE (10:00)
[2023-03-22] MEDS ORDERED: FUROSEMIDE 20MG VIAL IV ONE (10:00)
[2023-03-22] MEDS ORDERED: NITROGLYCERIN 1GM OINT 1 INCH/1GM TD ONE (10:00)
[2023-03-22 10:21] LABS: AMPHET/METH SCREEN,URINE NEGATIVE (NEGATIVE); BARBITURATE SCREEN, URINE NEGATIVE (NEGATIVE); BENZODIAZEPINES SCREEN,URINE NEGATIVE (NEGATIVE); CANNABINOID SCREEN,URINE POSITIVE (NEGATIVE); COCAINE SCREEN,URINE POSITIVE (NEGATIVE); OPIATE SCREEN,URINE NEGATIVE (NEGATIVE); PHENCYCLIDINE SCREEN,URINE NEGATIVE (NEGATIVE)
[2023-03-22] MEDS ORDERED: MORPHINE 2 MG SYG IVP ONE (10:30)
[2023-03-22] MEDS ORDERED: KCL 20 MEQ ERTAB PO PRN (10:30)
[2023-03-22] MEDS ORDERED: POTASSIUM CHLORIDE 10% ELIXIR 20 MEQ/15 ML UDCUP PO PRN (10:30)
[2023-03-22] MEDS ORDERED: MAGNESIUM 2GM PREMIX 50ML 50 ML IV PRN (10:30)
[2023-03-22] MEDS ORDERED: POTASSIUM CHLORIDE 20MEQ/100ML 100 ML IV PRN (10:30)
[2023-03-22] MEDS: FUROSEMIDE 20MG VIAL IV SCH ×2 (11:00→22:15)
[2023-03-22] MEDS ORDERED: FUROSEMIDE 40MG VIAL IV SCH (11:00)
[2023-03-22] MEDS ORDERED: FAMOTIDINE 20MG VIAL IV ONE (11:00)
[2023-03-22] MEDS: HEPARIN 5,000 UNIT VIAL SQ SCH ×2 (11:21→22:09)
[2023-03-22] MEDS: INSULIN HUMULIN R 100 UNIT/ML 3ML SQ SCH ×3 (11:28→20:33)
[2023-03-22] MEDS ORDERED: SODIUM ZIRCONIUM CYCLOSILICATE 5 GM POWD.PACK PO ONE (11:30)
[2023-03-22] MEDS ORDERED: ACETAMINOPHEN 325 MG TAB PO PRN (11:30)
[2023-03-22] MEDS ORDERED: ONDANSETRON 4MG INJ IVP PRN (11:30)
[2023-03-22 13:34] VITALS: BP 152/92
[2023-03-22 16:02] VITALS: BP 145/91
[2023-03-22 19:06] VITALS: BP 132/87
[2023-03-22] MEDS ORDERED: GLUCAGON 1MG KIT 1 MG ML IM PRN (20:00)
[2023-03-22] MEDS ORDERED: DEXTROSE 50%-WATER 50 ML DISP.SYRIN IV PRN (20:00)
[2023-03-22] MEDS ORDERED: ATORVASTATIN 40 MG TABLET PO SCH (21:00)
[2023-03-22 22:57] VITALS: BP 144/92
[2023-03-22 23:21] LABS: POTASSIUM 4.5 mmol/L (3.5-5.1)
[2023-03-23 03:30] VITALS: BP 138/90
[2023-03-23 06:02] LABS: BASOPHILS % (AUTO) 0.4 % (0.0-5.0); EOSINOPHILS % (AUTO) 1.6 % (0.0-8.0); HEMATOCRIT 35.3 % (42-54); LYMPHOCYTES % (AUTO) 15.9 % (21.0-51.0); MEAN CORPUSCULAR HEMOGLOBIN 27.4 pg (27.0-33.0); MEAN CORPUSCULAR VOLUME 85.5 fL (79-99); MONOCYTES % (AUTO) 9.6 % (3.0-13.0); NEUTROPHILS % (AUTO) 71.9 % (40.0-77.0); PLATELET COUNT (AUTO) 176 K/uL (130-400); RED BLOOD CELL COUNT(AUTO) 4.13 MIL/uL (4.50-6.20); RED CELL DISTRIBUTION WIDTH 19.2 % (11.0-15.5); WHITE BLOOD COUNT (AUTO) 5.1 K/uL (4.8-10.8)
[2023-03-23] MEDS: INSULIN HUMULIN R 100 UNIT/ML 3ML SQ SCH ×2 (06:15→11:02)
[2023-03-23 06:25] LABS: B-TYPE NATRIURETIC PEPTIDE 2630 pg/mL (0-100)
[2023-03-23 06:36] LABS: ALBUMIN 3.2 g/dL (3.5-5.0); CREATININE 1.5 mg/dL (0.5-1.5); MAGNESIUM 1.9 mg/dL (1.80-2.40); POTASSIUM 4.2 mmol/L (3.5-5.1); THYROID STIMULATING HORMONE 2.06 uIU/mL (0.36-3.74); TOTAL PROTEIN, SERUM 6.7 g/dL (6.0-8.3)
[2023-03-23] MEDS ORDERED: MAGNESIUM 2GM PREMIX 50ML 50 ML IV PRN (07:00)
[2023-03-23 08:00] VITALS: BP 148/93
[2023-03-23] MEDS: FUROSEMIDE 20MG VIAL IV SCH (08:24)
[2023-03-23] MEDS ORDERED: SACUBITRIL/VALSARTAN 1 EACH TABLET PO SCH (09:00)
[2023-03-23] MEDS ORDERED: ASPIRIN 81 MG EC TAB PO SCH (09:00)
[2023-03-23] MEDS ORDERED: ATOR40TA69 PO (09:40)
[2023-03-23] MEDS ORDERED: SACU1TAB PO (09:40)
[2023-03-23] MEDS ORDERED: FURO20TA4 PO (09:40)
[2023-03-23] MEDS ORDERED: AEC81 PO (09:40)
[2023-03-23] MEDS ORDERED: FAMOTIDINE 20MG VIAL IV SCH (11:00)
[2023-03-23] MEDS: HEPARIN 5,000 UNIT VIAL SQ SCH (11:00)
[2023-03-23 11:19] VITALS: BP 149/80
== END 2023-03-23 12:20 | disposition home or self-care (01) | DRG 280 ==
LOC: EDH 08:06 → EDHIP 08:07 → 4BH 13:04
PROVIDERS: ADMIT Internal Medicine; ATTEND Internal Medicine
DX: I13.0 Hypertensive heart and chronic kidney disease with heart failure and stage 1 through stage 4 chronic kidney disease, or unspecified chronic kidney disease (principal); I21.A1 Myocardial infarction type 2; I50.43 Acute on chronic combined systolic (congestive) and diastolic (congestive) heart failure; E87.1 Hypo-osmolality and hyponatremia; F14.20 Cocaine dependence, uncomplicated; Z20.822 Contact with and (suspected) exposure to COVID-19; N17.9 Acute kidney failure, unspecified; D64.9 Anemia, unspecified; I42.9 Cardiomyopathy, unspecified; E11.22 Type 2 diabetes mellitus with diabetic chronic kidney disease; E78.00 Pure hypercholesterolemia, unspecified; E87.5 Hyperkalemia; F12.20 Cannabis dependence, uncomplicated; F20.9 Schizophrenia, unspecified; F43.10 Post-traumatic stress disorder, unspecified; I16.0 Hypertensive urgency; N18.9 Chronic kidney disease, unspecified; I25.10 Atherosclerotic heart disease of native coronary artery without angina pectoris; I25.2 Old myocardial infarction; Z59.00 Homelessness unspecified; Z79.82 Long term (current) use of aspirin; Z79.899 Other long term (current) drug therapy; Z82.49 Family history of ischemic heart disease and other diseases of the circulatory system; Z83.3 Family history of diabetes mellitus; Z91.199 Patient's noncompliance with other medical treatment and regimen due to unspecified reason
CPT/HCPCS: 36415; 71045; 80053; 80305; 81001; 82533; 82550; 82948; 83735; 83880; 84132; 84443; 84484; 85025; 87635; 87804; 93005; C9803; G0378; J1644; J1940; J2270; J3490

== ENCOUNTER 2024-07-24 19:16 | Inpatient (IN) | payer OTHER ==
[~2024-07-24] VITALS: Ht 167.6 cm; Wt 59.1 kg
[~2024-07-24 19:16] MED LIST changes: +CLOP-31 PO; -EMPA10TA PO; -FURO40TA5 PO; -GLIP5TAB11 PO; +NITR0.4T50 SL; -SACU1TAB PO
--- NOTE | 2024-07-24 19:53 | EKG ---
[facility] Test Date: 2024-07-24 Test Time: 19:28:51 Pat Name: DIANELYS ALMODOVAR Department: [facility] Room: ED Gender: M Solutions Delivery Consultant: [id number] : 1960 Requested By: JOSE L BAILEY Order Number: [id number] Reading MD: Sergio Moreira Measurements Intervals [place] Rate: 83 P: 47 ID: [id number] QRS: 110 QRSD: 112 T: 18 QT: 381 QTc: 448 Interpretive Statements Sinus rhythm ANTEROSEPTAL INFARCT, AGE INDETERMINATE Compared to ECG 06/01/2024 11:25:59 Atrial premature complex(es) no longer present Left-axis deviation no longer present Electronically Signed On 07-25-2024 14:46:47 POOL HALL INSPECTOR by Sergio Moreira Please click the below link to view image of tracing.
--- NOTE | 2024-07-24 20:16 | ERN ---
ED Note History of Present Illness Stated Complaint: CHEST PAIN Chief Complaint: Chest Pain Time Seen by MD: 20:03 Dictation: This is a 63-year-old homeless male with multiple medical problems came into the ER with complaints of chest pain which feels like a pressure for over 2 hours. shortness of breath for 3-4 days associated with cough and mucopurulent sputum. He is very noncompliant with any medications he stated that he stayed in bed for 3-4 days. He also reports increasing lower extremity edema. It is hard to understand him as he is edentulous. He has a history of polysubstance abuse and his last crack cocaine was last night. He received aspirin and sublingual nitro per EMS. He had exactly similar presentation in June Temperature 98.6 pulse 82 respirations 16 blood pressure 131/93 with a pulse oximetry of 96% on room air His chronic medical problems include diabetes mellitus, hypertension, hyp ercholesterolemia and history of a CHF chronic anemia Allergies: Coded Allergies: No Known Allergies (Verified Allergy, Unknown, 10/25/19) Home Meds Active Scripts Clopidogrel Bisulfate (Plavix) 75 Mg Tablet, 75 MG PO DAILY for 30 Days, #30 TAB Prov:MARCELINA RODRIGUEZ NP 06/02/24 Nitroglycerin (Nitroglycerin) 0.4 Mg Tab.subl, 0.4 MG SL [id number] PRN for chest pain, #30 TAB.SL 1 Refill Prov:MARY LU MD 11/28/23 Aspirin (ASPIRIN 81 MG ECTAB) 81 Mg Ectab, 81 MG PO DAILY for 30 Days, #30 TAB.EC 2 Refills Prov:MARY LU MD 11/28/23 Atorvastatin Calcium (Atorvastatin Calcium) 40 Mg Tablet, 40 MG PO HS for 30 Days, #90 TAB 3 Refills Prov:MARY LU MD 11/28/23 Past Medical History Past Medical History: CHF, CVA, Diabetes-Type II, High Cholesterol, Hypertension, MS Additional Past Medical Hx: CHRONIC BACK PAIN, PTSD Surgical History: Other Surgical History Other: BACK;LEFT SHOULDER Family History: CAD, DM, HTN Social History: Smokers, Drugs, Other RN Note Reviewed/Agreed w/PFSH: Yes Review of System Dictation Constitutional: Negative for fever,chills, and weight loss Eyes: Negative for injury, pain,redness, and discharge ENT: Negative for injury,pain or swelling Cardiovascular: Positive for chest pain, and edema Respiratory: Positive for shortness of breath, cough, and wheezing, Abdomen/GI: Negative for abdominal pain, nausea, vomiting, diarrhea, and constipation Back: Negative for injury and pain : Negative for injury, bleeding and discharge MS/Extremity: Negative for injury and deformity Skin: Negative for rash, and discoloration Neuro: Negative for headache, weakness, numbness, tingling, and seizure Psych: Negative for suicide ideation, homicidal ideation, and hallucinations Initial Vital Sign VS Vital Signs Date Time Temp Pulse Resp B/P (MAP) Pulse Ox O2 Delivery O2 Flow Rate FiO2 07/24/24 19:18 98.6 82 16 131/93 96 Room Air* 0 21 Physical Exam Dictation General: awake, alert, NAD very unkempt chronically ill-appearing emaciated male Head/Face: Normocephalic, atraumatic Eyes: PERRL, EOMI, vision at baseline ENT: oral cavity clear, TMs clear, no signs of infection poor dentition and missing teeth Neck: Trachea midline, supple, no nuchal rigidity Cardiovascular: RRR, normal S1/S2, No MRGs, no JVD Respiratory: Decreased breath sounds bilaterally with coarse rhonchi Abdomen: Soft, non-tender, non-distended, normal bowel sounds, no guarding or rebound. Skin: Warm, dry, normal turgor, no rash MS/Extremity: Pulses equal, no cyanosis, neurovascular intact, FROM feet extensive scaling and fungal rash in the intertriginous areas and foul smell. Neuro: COAx4, GCS 15, strength 5/5, CN 2-12 intact, normal cerebellar exam, normal gait, Psych: Normal behavior, mood, and affect normal Extremities-1+ pitting edema without any palpable cords, Homans sign is negative Results (Laboratory/Radiology) Laboratory/Radiology Laboratory Tests Test 07/24/24 19:38 07/24/24 20:52 White Blood Count 4.9 K/uL (4.8-10.8) Red Blood Count 4.23 MIL/uL (4.50-6.20) L Hemoglobin 10.8 g/dL (14.0-18.0) L Hematocrit 34.3 % (42-54) L Mean Corpuscular Volume 81.1 fL (79-99) Mean Corpuscular Hemoglobin 25.5 pg (27.0-33.0) L Mean Corpuscular Hemoglobin Concent 31.5 g/dL (32.0-36.0) L Red Cell Distribution Width 18.9 % (11.0-15.5) H Platelet Count 215 K/uL (130-400) Mean Platelet Volume 10.0 fL (7.5-10.5) Immature Granulocyte % (Auto) 0.4 % (0-1) Neutrophils (%) (Auto) 73.6 % (40.0-77.0) Lymphocytes (%) (Auto) 13.4 % (21.0-51.0) L Monocytes (%) (Auto) 12.0 % (3.0-13.0) Eosinophils (%) (Auto) 0.2 % (0.0-8.0) Basophils (%) (Auto) 0.4 % (0.0-5.0) Neutrophils # (Auto) 3.6 K/uL (1.8-7.7) Lymphocytes # (Auto) 0.7 K/uL (1.0-4.8) L Monocytes # (Auto) 0.6 K/uL (0.1-1.0) Eosinophils # (Auto) 0.01 K/uL (0.00-0.70) Basophils # (Auto) 0.02 K/uL (0.00-0.20) Absolute Immature Granulocyte (auto 0.02 K/uL (0-1) Nucleated Red Blood Cells 0.0 % (0.0-0.19) Red Blood Cell Morphology ANISO 1+ Sodium Level 134 mmol/L (136-145) L Potassium Level 4.6 mmol/L (3.5-5.1) Chloride Level 101 mmol/L (101-111) Carbon Dioxide Level 23 mmol/L (21-32) Blood Urea Nitrogen 31 mg/dL (7-18) H Creatinine 1.8 mg/dL (0.5-1.3) H Glomerular Filtration Rate Calc 42 mL/min (>90) Random Glucose 140 mg/dL (70-105) H Total Calcium 8.4 mg/dL (8.5-10.1) L B-Type Natriuretic Peptide 4050 pg/mL (0-100) H Troponin I < 0.05 ng/mL (0.00-0.05) Labs Reviewed?: Yes EKG Comment: Twelve lead EKG done on 07/24/2024 at 7:28 p.m. showed a heart rate of 83, VA interval 170, QRS 112, QT/QTC 381/448. Impression normal sinus rhythm with no acute ST elevations or deep ST depressions. Nonspecific ST-T changes diffusely noted. Interpreted by Dr. Ferrell ED Course ED Course Orders Procedure Category Date Status Time 12 Lead Ekg Tracing- EKG 07/24/24 Complete Technical 19:31 Cbc With Differential LAB 07/24/24 Complete 20:13 B-Type Natriuretic LAB 07/24/24 Complete Peptide 20:13 Chest 1vw RAD 07/24/24 Resulted 20:13 Troponin Poc Order LAB 07/24/24 Complete Only 20:13 Bedside Troponin-I LAB.ER 07/24/24 In Process (Poc) 20:13 Basic Metabolic Panel LAB 07/24/24 Complete 20:13 Drug Screen Urine LAB 07/24/24 Logged 20:13 Morphine 2mg Syg PHA 07/24/24 Complete (Morphine 2mg Syg) 20:30 Edm Admit Bridge Order ADM 07/24/24 Transmitted 21:48 Admit Orders ADM 07/24/24 Transmitted 21:48 Current Medications Medications (Trade) Dose Ordered Sig/Mindy Route PRN Reason Start Time Stop Time Status Last Admin Dose Admin Morphine Sulfate (morPHINE 2MG SYG) 2 mg ONCE ONCE IVP 07/24/24 20:30 07/24/24 20:31 DC 07/24/24 20:25 Vital Signs Date Time Temp Pulse Resp B/P (MAP) Pulse Ox O2 Delivery O2 Flow Rate FiO2 07/24/24 20:48 98.6 80 16 130/93 96 Room Air* 0 21 07/24/24 19:19 98.6 82 16 131/93 96 Room Air 0 07/24/24 19:18 98.6 82 16 131/93 96 Room Air* 0 21 We will perform diagnostic labs, advanced imaging and administer medications according to the patient's complaint. Once the results are available, will review and personally interpreted the labs to rule out any acute life- threatening emergency the trach require immediate intervention and treatment. I will then re-evaluate the patient after treatment and diagnostic exams have return to determine whether the patient requires any further testing, can safely be discharged home or need further admission to hospital for additional treatment and evaluation. 8:50 p.m. labs reviewed CBC showed a white count of 4.9 hemoglobin 10.8 BNP 7 is significant for a sodium of 134 BUN and creatinine are 31 and 1.8 chest x-ray and rest of the labs are pending 9:20 p.m. brain natriuretic peptide is over 4000 chest x-ray shows massive cardiomegaly and pulmonary vascular congestion. Recommended admission to the hospital for management of the chest pain and acute on chronic decompensated diastolic congestive heart failure 9:50 p.m. patient accepted by hospitalist group nurse practitioner regla for admission and further management HEART Score Response (Comments) Value History: Moderate suspicion (+1) 1 EKG: Repolarization changes 1 Age: 45-65yrs (+1) 1 Risk Factors: 3+ risk factors (+2) 2 Initial Troponin: Normal limit (0) 0 HEART Score Risk: Mod Risk for MACE (4-6) Total 5 Medical Decision Making MDM MDM: Differential diagnosis: Acute coronary syndrome, cocaine abuse, unstable angina, atypical chest pain Rationale: Tests considered and ordered secondary to shared decision making include: labs, ECG and radiology Previous outside records reviewed: Old ER visits. Risk of complication and/or morbidity or mortality of patient management: None Medications-Per medication reconciliation Need for hospitalization: Patient does meet criteria for hospitalization. Need for emergency major/minor surgery: No There are no social concerns with this patient. Prescription drug management Prescriptions will include symptomatic care Patient's prior external medical records from other ER visits were reviewed by me as indicated. Prior testing and results from previous visits were reviewed. Prior tests were taken into account with medical decision making and resource utilization, independent historian/historians were used to obtain complete medical history. I independently interpreted the test that were performed, results were reviewed by me and considered findings on radiology if ordered. Medical management and examination interpretation discussions were had by me with other qualified healthcare professionals as indicated for the patient's care. Problem List Problem List: (1) ACS (acute coronary syndrome) (2) Acute on chronic diastolic CHF (congestive heart failure) (3) Cocaine abuse (4) Uncontrolled diabetes mellitus (5) Polysubstance abuse (6) Anemia (7) OCTAVIO (acute kidney injury) DX & DISP Disposition: Inpatient Decision to Admit Time: 21:29 Departure Impression: Primary Impression: ACS (acute coronary syndrome) Additional Impressions: Acute on chronic diastolic CHF (congestive heart failure), Uncontrolled diabetes mellitus, Anemia, Polysubstance abuse, Cocaine abuse, OCTAVIO (acute kidney injury) Condition: Stable Additional Instructions: Patient was informed of all the diagnostic labs and procedures conducted in the emergency room today and demonstrated understanding of the results. I personally reviewed and interpreted all the diagnostic exams performed in the ER today. The patient will be admitted to the hospital for further treatment and evaluation. Disposition-admit to facility Condition-stable/guarded Course-uncertain at this time Pain status-decreased Assessment-exam unchanged Admission Certification- I certify that the patients status is appropriate and is based on my best clinical judgment and the patient's condition as documented in the medical records Referrals: KEHINDE BOOKER (PCP) JOSE L FERRELL MD Jul 24, 2024 20:16
[2024-07-24] MEDS: morPHINE 2 MG SYG IVP ONE (20:25)
[2024-07-24 20:39] LABS: BASOPHILS # (AUTO) 0.02 K/uL (0.00-0.20); BASOPHILS % (AUTO) 0.4 % (0.0-5.0); EOSINOPHILS # (AUTO) 0.01 K/uL (0.00-0.70); EOSINOPHILS % (AUTO) 0.2 % (0.0-8.0); HEMATOCRIT 34.3 % (42-54); IMMATURE GRANULOCYTE ABSOLUTE 0.02 K/uL (0-1); LYMPHOCYTES # (AUTO) 0.7 K/uL (1.0-4.8); LYMPHOCYTES % (AUTO) 13.4 % (21.0-51.0); MEAN CORPUSCULAR HEMOGLOBIN 25.5 pg (27.0-33.0); MEAN CORPUSCULAR HGB CONC 31.5 g/dL (32.0-36.0); MEAN CORPUSCULAR VOLUME 81.1 fL (79-99); MONOCYTES # (AUTO) 0.6 K/uL (0.1-1.0); NEUTROPHILS # (AUTO) 3.6 K/uL (1.8-7.7); NEUTROPHILS % (AUTO) 73.6 % (40.0-77.0); PLATELET COUNT (AUTO) 215 K/uL (130-400); RED BLOOD CELL COUNT(AUTO) 4.23 MIL/uL (4.50-6.20); RED CELL DISTRIBUTION WIDTH 18.9 % (11.0-15.5); WHITE BLOOD COUNT (AUTO) 4.9 K/uL (4.8-10.8)
[2024-07-24 20:43] LABS: CREATININE 1.8 mg/dL (0.5-1.3); POTASSIUM 4.6 mmol/L (3.5-5.1)
[2024-07-24 21:02] LABS: B-TYPE NATRIURETIC PEPTIDE 4050 pg/mL (0-100)
--- NOTE | 2024-07-24 21:05 | HMCIMG ---
INDICATION: Chest pain and is of breath TECHNIQUE: CHEST 1VW COMPARISON: 07/04/2024 FINDINGS/IMPRESSION: Prominent bilateral interstitial markings which may represent bronchitis or vascular congestion in the proper clinical setting. Cardiomegaly is seen Mild degenerative changes of the spine. The visualized upper abdomen appears unremarkable.
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
[2024-07-24] MEDS: furoSEMIDE 40MG VIAL IV ONE (22:10)
[2024-07-24] MEDS ORDERED: GLUCAGON 1MG KIT 1 MG ML IM PRN (23:30)
[2024-07-24] MEDS ORDERED: acetaMINOPHEN 325 MG TAB PO PRN (23:30)
[2024-07-24] MEDS ORDERED: PoTASSium chloRIDE 20MEQ/100ML 100 ML IV PRN (23:30)
[2024-07-24] MEDS: furoSEMIDE 40MG VIAL IVP SCH (23:30)
[2024-07-24] MEDS ORDERED: ondanSETRON 4MG INJ IV PRN (23:30)
[2024-07-24] MEDS ORDERED: guaiFENesin-DM 200/20MG 10ML PO PRN (23:30)
[2024-07-24] MEDS ORDERED: NITROGLYCERIN 0.4 MG SL TAB SL PRN (23:30)
[2024-07-24] MEDS ORDERED: PoTASSium chl 10% ELIXIR 20MEQ 20 MEQ/15 ML UDCUP PO PRN (23:30)
[2024-07-24] MEDS ORDERED: DEXTROSE 50%-WATER 50 ML DISP.SYRIN IV PRN (23:30)
[2024-07-24] MEDS ORDERED: PoTASSium chloRIDE 20MEQ ER 20 MEQ ERTAB PO PRN (23:30)
[2024-07-25 01:23] LABS: AMPHET/METH SCREEN,URINE NEGATIVE (NEGATIVE); BARBITURATE SCREEN, URINE NEGATIVE (NEGATIVE); BENZODIAZEPINES SCREEN,URINE NEGATIVE (NEGATIVE); CANNABINOID SCREEN,URINE POSITIVE (NEGATIVE); COCAINE SCREEN,URINE POSITIVE (NEGATIVE); OPIATE SCREEN,URINE NEGATIVE (NEGATIVE); PHENCYCLIDINE SCREEN,URINE NEGATIVE (NEGATIVE)
[2024-07-25 07:07] LABS: BASOPHILS # (AUTO) 0.02 K/uL (0.00-0.20); BASOPHILS % (AUTO) 0.3 % (0.0-5.0); EOSINOPHILS # (AUTO) 0.06 K/uL (0.00-0.70); HEMATOCRIT 38.8 % (42-54); IMMATURE GRANULOCYTE ABSOLUTE 0.02 K/uL (0-1); LYMPHOCYTES # (AUTO) 0.8 K/uL (1.0-4.8); LYMPHOCYTES % (AUTO) 13.2 % (21.0-51.0); MEAN CORPUSCULAR HEMOGLOBIN 25.8 pg (27.0-33.0); MEAN CORPUSCULAR HGB CONC 30.9 g/dL (32.0-36.0); MEAN CORPUSCULAR VOLUME 83.3 fL (79-99); MONOCYTES # (AUTO) 0.8 K/uL (0.1-1.0); MONOCYTES % (AUTO) 13.4 % (3.0-13.0); NEUTROPHILS # (AUTO) 4.2 K/uL (1.8-7.7); NEUTROPHILS % (AUTO) 71.8 % (40.0-77.0); PLATELET COUNT (AUTO) 224 K/uL (130-400); RED BLOOD CELL COUNT(AUTO) 4.66 MIL/uL (4.50-6.20); WHITE BLOOD COUNT (AUTO) 5.9 K/uL (4.8-10.8)
[2024-07-25 07:34] LABS: HEMOGLOBIN A1C 7.4 % (4.0-6.0)
[2024-07-25 07:38] LABS: BILIRUBIN,TOTAL 0.7 mg/dL (0.2-1.0); CREATININE 1.9 mg/dL (0.5-1.3); POTASSIUM 4.4 mmol/L (3.5-5.1); THYROID STIMULATING HORMONE 7.4 uIU/mL (0.36-3.74); TOTAL PROTEIN, SERUM 6.4 g/dL (6.0-8.3)
[2024-07-25 07:40] LABS: B-TYPE NATRIURETIC PEPTIDE 4440 pg/mL (0-100)
[2024-07-25] MEDS: FAMOTIDINE 20MG TAB PO SCH (07:55)
[2024-07-25] MEDS: ASPIRIN 81 MG EC TAB PO SCH (07:55)
[2024-07-25] MEDS: INSULIN humuLIN R 100 UNIT/ML 3ML SQ SCH (08:33)
[2024-07-25] MEDS: ketOROlac 15MG/ML VIAL (15MG/ML) IV PRN (08:34)
[2024-07-25] MEDS: HEParin 5,000 UNIT VIAL SQ SCH (08:34)
--- NOTE | 2024-07-25 08:58 | PN ---
[facility] PROGRESS NOTE Date of Service: Jul 25, 2024 Time of Service: 08:57 SUBJECTIVE: The patient has been seen and examined during my rounding, no acute events overnight, comfortably in bed, BP 141/97, afebrile, saturating normal on room air. The patient admits to using crack, not showing signs of withdrawal, not combative, not agitated, he is cooperating well. He is homeless. He denies chest pain, no shortness a breath, no nausea, no vomiting, no abdominal discomfort, he feels hungry. REVIEW OF SYSTEMS CONSTITUTIONAL: Denies fevers, chills, or night sweats. No unintentional weight loss reported. NEUROLOGICAL: Denies headache, amaurosis fugax, motor weakness, sensory deficit, vertigo/spinning sensation, gait abnormalities, or tremors. ENT: No hearing loss, otalgia, otorrhea, rhinitis, rhinorrhea, hoarseness, or sore throat. CARDIOVASCULAR: Complain of chest pain and palpitation Denies orthopnea, paroxysmal nocturnal dyspnea, life-threatening arrhythmias, claudication. PULMONARY: Complain of shortness of breaths and productive cough Denies hemoptysis, pleuritic chest pain. SLEEP: Denies morning headaches, daytime somnolence or napping. Denies difficulty falling asleep, staying asleep, waking from sleep. Denies knowledge of snoring. GASTROINTESTINAL: Denies any type of dysphagia to either liquids or solids. Denies nausea, vomiting, pyrosis, early satiety, abdominal pain, diarrhea, constipation, or changes in stool consistency or caliber. Denies coffee-ground emesis, hematemesis, hematochezia, or melanotic stools. GENITOURINARY: Denies frequency, urgency, nocturia, hematuria or incontinence (Storage/Irritative symptoms.) Low urinary stream, straining to void, urinary intermittency or hesitancy, splitting of the voiding stream, terminal dribbling. ENDOCRINOLOGIC: Denies polyuria, polydipsia, polyphagia or heat/cold intolerances. HEMATOLOGIC: Denies thrombophilia/previous clots, or coagulopathy/bleeding disorders. ONCOLOGIC: Denies personal history of malignancy. DERMATOLOGIC: Denies rashes or pruritus. PSYCHIATRIC: Denies any suicidal or homicidal ideation. Denies hallucinations. PHYSICAL EXAM GENERAL APPEARANCE: The patient is awake, alert, and oriented, in no acute cardiopulmonary distress. NEUROLOGICAL: Cranial nerves II-XII grossly intact. Motor is 5/5 in bilateral upper and lower extremities proximal to distal. No sensory deficits. HEENT: Face is symmetric. Pupils are equal and reactive. Extraocular movements are intact. Missing teeth NECK: Supple. No JVD. No thyromegaly. No submental, submandibular, pre- /postauricular, occipital or supraclavicular lymphadenopathy. CHEST: Normal chest expansion. No Telemetry. LUNGS: Decreased breath sounds and Diffuse rhonchi on bilateral lung chu per auscultation CARDIOVASCULAR: Regular. S1 and S2 normal. No appreciable rubs, + murmurs no gallops. ABDOMEN: Soft, nontender, and nondistended. There is no rebound, voluntary guarding, or rigidity. : Deferred. No So. EXTREMITIES: 2+ edema to bilateral lower extremities and feet with extensive scaling and fungal rash in the intertriginous areas and foul smell. SKIN: No skin breakdown. Vital Signs (last 8hr) Date Time Temp Pulse Resp B/P (MAP) Pulse Ox O2 Delivery O2 Flow Rate FiO2 07/25/24 07:31 98.6 85 16 141/97 100 Nasal Cannula* 2 28 07/25/24 05:58 98.6 86 16 153/99 96 Nasal Cannula* 2 28 07/25/24 04:39 98.6 76 16 138/77 96 Room Air* 0 21 07/25/24 03:27 98.6 80 16 137/84 96 Room Air* 0 21 LABS: Laboratory: Test 07/25/24 07:39 07/25/24 06:51 07/25/24 01:06 07/24/24 20:52 Range/Units Whole Blood Glucose 239 H 70-110 MG/DL White Blood Count 5.9 4.8-10.8 K/uL Red Blood Count 4.66 4.50-6.20 MIL/uL Hemoglobin 12.0 L 14.0-18.0 g/dL Hematocrit 38.8 L 42-54 % Mean Corpuscular Volume 83.3 79-99 fL Mean Corpuscular Hemoglobin 25.8 L 27.0-33.0 pg Mean Corpuscular Hemoglobin Concent 30.9 L 32.0-36.0 g/dL Red Cell Distribution Width 19.0 H 11.0-15.5 % Platelet Count 224 130-400 K/uL Mean Platelet Volume 10.3 7.5-10.5 fL Immature Granulocyte % (Auto) 0.3 0-1 % Neutrophils (%) (Auto) 71.8 40.0-77.0 % Lymphocytes (%) (Auto) 13.2 L 21.0-51.0 % Monocytes (%) (Auto) 13.4 H 3.0-13.0 % Eosinophils (%) (Auto) 1.0 0.0-8.0 % Basophils (%) (Auto) 0.3 0.0-5.0 % Neutrophils # (Auto) 4.2 1.8-7.7 K/uL Lymphocytes # (Auto) 0.8 L 1.0-4.8 K/uL Monocytes # (Auto) 0.8 0.1-1.0 K/uL Eosinophils # (Auto) 0.06 0.00-0.70 K/uL Basophils # (Auto) 0.02 0.00-0.20 K/uL Absolute Immature Granulocyte (auto 0.02 0-1 K/uL Nucleated Red Blood Cells 0.0 0.0-0.19 % Sodium Level 139 136-145 mmol/L Potassium Level 4.4 3.5-5.1 mmol/L Chloride Level 107 101-111 mmol/L Carbon Dioxide Level 22 21-32 mmol/L Blood Urea Nitrogen 33 H 7-18 mg/dL Creatinine 1.9 H 0.5-1.3 mg/dL Glomerular Filtration Rate Calc 40 >90 mL/min Random Glucose 239 #H 70-105 mg/dL Hemoglobin A1c 7.4 H 4.0-6.0 % Estimated Average Glucose (eAG) 166 H 70-126 mg/dL Total Calcium 8.3 L 8.5-10.1 mg/dL Ionized Calcium 1.15 L 1.16-1.32 MMOL/L Magnesium Level 2.00 1.80-2.40 mg/dL Total Bilirubin 0.7 0.2-1.0 mg/dL Aspartate Amino Transf (AST/SGOT) 23 10-37 U/L Alanine Aminotransferase (ALT/SGPT) 41 12-78 U/L Alkaline Phosphatase 189 H 50-136 U/L Troponin I High Sensitivity 718 *H 4-75 ng/L B-Type Natriuretic Peptide 4440 H 0-100 pg/mL Total Protein 6.4 6.0-8.3 g/dL Albumin 3.0 L 3.5-5.0 g/dL Triglycerides Level 49 30-200 mg/dL Cholesterol Level 115 <200 mg/dL LDL Cholesterol 53 0-99 mg/dL HDL Cholesterol 54 29-71 mg/dL Thyroid Stimulating Hormone (TSH) 7.40 H 0.36-3.74 uIU/mL Urine Opiates Screen NEGATIVE NEGATIVE Urine Barbiturates Screen NEGATIVE NEGATIVE Urine Phencyclidine Screen NEGATIVE NEGATIVE Urine Amphetamines Screen NEGATIVE NEGATIVE Urine Benzodiazepines Screen NEGATIVE NEGATIVE Urine Cocaine Screen POSITIVE H NEGATIVE Urine Marijuana (THC) Screen POSITIVE H NEGATIVE Troponin I < 0.05 0.00-0.05 ng/mL Test 07/24/24 19:38 Range/Units Red Blood Cell Morphology ANISO 1+ Current Medications Medications (Trade) Dose Ordered Sig/Mindy Route PRN Reason Start Time Stop Time Status Last Admin Dose Admin Acetaminophen (TYLenol 325MG TAB) 650 mg Q4H PRN PO MILD PAIN (1-3) 07/24/24 23:30 08/23/24 23:29 Acetaminophen (TYLenol 325MG TAB) 650 mg Q6H PRN PO TEMPERATURE GREATER THAN 101.5 07/24/24 23:30 08/23/24 23:29 Aspirin (Aspirin 81mg Ec Tab) 81 mg DAILY PO 07/25/24 09:00 08/24/24 08:59 07/25/24 07:55 81 MG Atorvastatin Calcium (LIPItor 40MG) 40 mg HS PO 07/25/24 21:00 08/24/24 20:59 Dextrose (D50w) 50 ml AD PRN IV HYPOGLYCEMIA PROTOCOL 07/24/24 23:30 08/23/24 23:29 Famotidine (Pepcid 20mg Tab) 20 mg Q24H PO 07/25/24 09:00 08/24/24 08:59 07/25/24 07:55 20 MG Furosemide (LASix 40MG VIAL) 40 mg Q8H IVP 07/24/24 23:30 08/23/24 23:29 07/25/24 07:56 40 MG Glucagon (Glucagon 1mg Kit) 1 mg AD PRN IM HYPOGLYCEMIA PROTOCOL 07/24/24 23:30 08/23/24 23:29 Guaifenesin/ Dextromethorphan (RobiTUSSin DM 200/20MG 10ML) 10 ml Q4H PRN PO COUGH 07/24/24 23:30 08/23/24 23:29 Heparin Sodium (Porcine) (HEParin 5,000 UNIT VIAL) 5,000 unit BID SQ 07/25/24 09:00 08/24/24 08:59 07/25/24 08:34 5,000 UNIT Hydralazine HCl (APRESOLine 20MG INJ) 10 mg Q6H PRN IV For:SBP above 160;DBP above 90 07/24/24 23:30 08/23/24 23:29 Insulin Human Regular (humuLIN R 100 UNIT/ML 3ML) INSULIN SLIDING SCAL... ACHS SQ 07/25/24 07:30 08/24/24 07:29 07/25/24 08:33 4 UNIT Ketorolac Tromethamine (toRADol) 15 mg Q6H PRN IV MODERATE PAIN (4-6) 07/24/24 23:30 07/29/24 23:29 07/25/24 08:34 15 MG Magnesium Sulfate 50 ml @ 0 mls/hr PROTOCOL PRN IV OTHER [SEE ORDER COMMENTS] 07/24/24 23:30 08/23/24 23:29 Nitroglycerin (Nitrostat) 0.4 mg PROTOCOL PRN SL CHEST PAIN 07/24/24 23:30 08/23/24 23:29 Ondansetron HCl (zoFRAN 4MG INJ) 4 mg Q6H PRN IV NAUSEA/VOMITING 07/24/24 23:30 08/23/24 23:29 Potassium Chloride 100 ml @ 100 mls/hr AD PRN IV POTASSIUM PROTOCOL 07/24/24 23:30 08/23/24 23:29 Potassium Chloride (K-Dur/Klor-Con 20meq) 20 meq AD PRN PO POTASSIUM PROTOCOL 07/24/24 23:30 08/23/24 23:29 Potassium Chloride (KCl 10% Elixir 20meq/15ml) 20 meq AD PRN PO POTASSIUM PROTOCOL 07/24/24 23:30 08/23/24 23:29 DIAGNOSTICS / RADIOLOGY: [ ] ASSESSMENT: Chest pain rule out ACS POA Acute on chronic CHF exacerbation POA Polysubstance abuse POA Homelessness POA Medical noncompliance POA Hypertension POA Diabetes POA Hyperlipidemia POA Chronic anemia due to CKD POA Hyponatremia secondary to volume overload POA Stage 3 renal disease POA acitve smoker POA Ischemic cardiomyopathy EF 20-25% POA PLAN: Admit patient in medical telemetry Continue on heart healthy and consistent carb diet Continue on Aspirin & statin Continue on Heparin 5000 subcut bid for DVT for prohylaxis Continue on Famotidine 20 mg po bid for GI prophylaxis Continue to replace electrolytes as needed per protocol Continue daily weight and Strict I&O May use oxygen supplementation to keep Saturation above 92% Restrict Fluid 1.5L/day Continue Lasix 40 mg IV Q8H Continue on insulin sliding scale AC & HS with hypoglycemia protocol Continue prn medication for fever,pain,cough , nausea & vomiting We will reconcile home meds once medlist available Continue trend troponin Q6H x3 Follow UDS A.m. labs Cardiology consultation requested Echocardiogram to evaluate ejection fraction Counseled on recreational drug use cessation Further orders to follow depending on above results Plan of action discussed, all questions answered. MARY LU MD Jul 25, 2024 08:58
[2024-07-25] MEDS: furoSEMIDE 40MG VIAL IVP SCH (09:30)
[2024-07-25] MEDS: cloPIDOgrel 75MG TAB PO SCH (10:25)
--- NOTE | 2024-07-25 10:54 | CONS ---
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 He presented to the emergency department with complaints of chest pain felt like pressure for over 2 hours and shortness of breath for the past four days. He is noncompliant with medication and continues to use illicit drugs. Cardiology consult was requested due to elevated troponin of 718 and a B JAVA SQL DEVELOPER of 4440. Patient has had multiple admissions this year last time was in May with troponin of 723 and also elevated BNP. Creatinine is 1.9 and a BUN of 33 with a GFR of 40 he does have a history of CKD. Twelve lead EKG on presentation sinus rhythm with half a mm ST depression on lateral leads. Currently the patient is resting comfortably offers no complaints. He is rec eiving furosemide IV every 8 hours was placed on aspirin, atorvastatin clopidogrel. REVIEW OF SYSTEMS: 14 point review of systems with pertinent positives and negatives in HPI. ALLERGIES: No known. HOME MEDICATIONS: None. PAST MEDICAL HISTORY: * Anteroseptal MD, old. * Severe ischemic cardiomyopathy. * Acute on chronic combined systolic and diastolic CHF. * Noncompliance with medications. * Homelessness. * April 2024 echo, EF 20-25%, grade 2 diastolic dysfunction, moderate to severe MR. * Type 2 diabetes. * Hypertension. * Dyslipidemia. * Acute renal failure. PAST SURGICAL HISTORY: Includes left shoulder fracture repair. FAMILY HISTORY: Brother had a defibrillator Social history: Patient is homeless and admits to use of marijuana and cocaine Review of blood work: Troponin 718, BNP 4440. Basic metabolic panel with a sodium of 139 potassium of 4.4 BUN of 33 creatinine of 1.9 and a GFR of 40. CBC hemoglobin of 12 hematocrit 38 platelet of 224 white blood cells of 5.9. Physical exam: Blood pressure 141/97 heart rate of 85 beats per minute and regular normal S1-S2 no rubs gallops murmurs noted. Neck is supple no jugular vein distention no carotid bruits. Bilateral breath sounds with rhonchi. Lower extremities trace pedal edema. Patient is alert awake and oriented. All others within normal limits. ASSESSMENT: * Chronically elevated troponins * History of coronary artery disease with history of anteroseptal MD, severe ischemic cardiomyopathy. * Acute on chronic combined systolic and diastolic congestive heart failure. * April 2024 echo, ejection fraction 20-25%, moderate to severe mitral regurgitation, grade 2 diastolic dysfunction. * Homelessness. * Noncompliance with medications. * Acute on chronic renal failure. * Hypertension. * Dyslipidemia. * Type 2 diabetes. * Polysubstance abuse PLAN: At this point we have a 63-year-old male presented for evaluation of chest pain and shortness of breath. He has been admitted multiple times in the past couple of months with same complaints. Cardiology consult was requested due to elevated troponin. On review of records he has chronically elevated troponin and BNP every time he presents. On current admission troponin is 718 with a BNP of 4440. Twelve lead EKG demonstrated sinus rhythm with half a mm ST depression in lateral leads. He has a history of CAD, systolic and diastolic congestive heart failure. He is noncompliant with medication and admits to using marijuana and cocaine. Currently he is being diuresed and was placed on clopidogrel, atorvastatin and aspirin. He is sleeping comfortably and offers no complaints. Can cancel 2D echocardiogram, place him on a fluid restriction daily weights. He is pending repeat troponin high sensitivity. MAHAD CARLOS Jul 25, 2024 10:54
[2024-07-25] MEDS: hydrALAZine 20MG/ML VIAL IV PRN (12:25)
[2024-07-25 20:00] VITALS: BP 142/100; PULSE 89; RESP 18; TEMP 97.6
[2024-07-25] MEDS: atorVAStatin 40 MG TABLET PO SCH (20:41)
[2024-07-26] VITALS (9 sets, daily range): BP systolic 113–145; BP diastolic 77–105; PULSE 75–88; RESP 16–20; TEMP 97.8–98.9; O2SAT 94–99
[2024-07-26 05:14] LABS: HEMATOCRIT 35.9 % (42-54); MEAN CORPUSCULAR HEMOGLOBIN 25.8 pg (27.0-33.0); MEAN CORPUSCULAR VOLUME 80.7 fL (79-99); RED BLOOD CELL COUNT(AUTO) 4.45 MIL/uL (4.50-6.20); RED CELL DISTRIBUTION WIDTH 18.9 % (11.0-15.5); WHITE BLOOD COUNT (AUTO) 6.4 K/uL (4.8-10.8)
[2024-07-26 05:46] LABS: ALBUMIN 2.7 g/dL (3.5-5.0); CREATININE 1.5 mg/dL (0.5-1.3); MAGNESIUM 1.6 mg/dL (1.80-2.40); POTASSIUM 3.5 mmol/L (3.5-5.1); TOTAL PROTEIN, SERUM 5.8 g/dL (6.0-8.3)
--- NOTE | 2024-07-26 06:52 | PN ---
[facility] Cardiology Progress Note CARDIOLOGY PROGRESS NOTE July Problems: 1. Acute on chronic combined systolic and diastolic congestive heart failure 2. Ischemic cardiomyopathy with ejection fraction of 20-25% and grade 2 diastolic left ventricular dysfunction 3. [id number] mitral regurgitation 4. Noncompliance with medication and follow up 5. Homeless status 6. Acute on chronic kidney disease 7. Hypertension 8. Dyslipidemia 9. Diabetes mellitus type 2 10. History of polysubstance abuse This unfortunate patient has had multiple admissions with congestive heart failure he has been noncompliant with medications. We believe he is homeless. He does use cocaine periodically. He has been strongly advised to quit. We are asking social media editor to evaluate him to see if he can be referred to [facility]. Orlando for assistance. In the past he is not felt to be a candidate for a defibrillator because of noncompliance and failure to follow up despite multiple appointments in our office. This morning blood pressure is 140/100 heart rate is in the 80s the patient is afebrile. White count 6.4 hemoglobin 11.5 platelet count is 881301. Potassium 3.5 BUN 33 creatinine 1.5 down from 1.9 yesterday. Troponins have been 189 718 and 751. Electrocardiogram shows an old anteroseptal AR but no acute ST changes. Chest x-ray shows severe cardiomegaly passive congestive changes no effusions. BNP level on admission was greater than 4000. He continues on aspirin atorvastatin clopidogrel famotidine IV furosemide potassium protocol. We will initiate me toprolol and losartan today and observe his blood pressure heart rate and renal function. He has diuresed 5.9 L in 24 hours. The patient is breathing better. And lungs are clear to auscultation. He asked for increased portions in his diet and is cachectic probably not receiving enough caloric intake as an outpatient as he is homeless. LANETTE MCLEAN MD Jul 26, 2024 06:52
[2024-07-26] MEDS: SPIRONOLACTONE 25 MG TAB PO SCH (09:49)
[2024-07-26] MEDS: metOPROLol sucCINATE 25 MG TAB.SR.24H PO SCH (09:49)
--- NOTE | 2024-07-26 14:49 | PN ---
[facility] PROGRESS NOTE Date of Service: Jul 26, 2024 Time of Service: 14:32 SUBJECTIVE: The patient has been seen and examined during my rounding, no acute events overnight, comfortably in bed, BP 141/97, afebrile, saturating normal on room air. The patient admits to using crack, not showing signs of withdrawal, not combative, not agitated, he is cooperating well. He is homeless. He denies chest pain, no shortness a breath, no nausea, no vomiting, no abdominal discomfort, he feels hungry. 07/26/24 the patient was gone for shower when I went to see him this morning. Later in the morning have not to see patient again and examined. He is complaining of shortness of breath, chest pain 8/10 and bilateral lower extremity edema Lt > Rt. He denies fever, chills, nausea or vomiting. Input is 900, output 5930 and balance -5030. His vitals are stable. BP 126/85. Increased the caloric intake upto 2400 kcal. REVIEW OF SYSTEMS CONSTITUTIONAL: Denies fevers, chills, or night sweats. No unintentional weight loss reported. NEUROLOGICAL: Denies headache, amaurosis fugax, motor weakness, sensory deficit, vertigo/spinning sensation, gait abnormalities, or tremors. ENT: No hearing loss, otalgia, otorrhea, rhinitis, rhinorrhea, hoarseness, or sore throat. CARDIOVASCULAR: Complain of chest pain and palpitation Denies orthopnea, paroxysmal nocturnal dyspnea, life-threatening arrhythmias, claudication. PULMONARY: Complain of shortness of breaths and productive cough Denies hemoptysis, pleuritic chest pain. SLEEP: Denies morning headaches, daytime somnolence or napping. Denies difficul ty falling asleep, staying asleep, waking from sleep. Denies knowledge of snoring. GASTROINTESTINAL: Denies any type of dysphagia to either liquids or solids. Denies nausea, vomiting, pyrosis, early satiety, abdominal pain, diarrhea, constipation, or changes in stool consistency or caliber. Denies coffee-ground emesis, hematemesis, hematochezia, or melanotic stools. GENITOURINARY: Denies frequency, urgency, nocturia, hematuria or incontinence (Storage/Irritative symptoms.) Low urinary stream, straining to void, urinary intermittency or hesitancy, splitting of the voiding stream, terminal dribbling. ENDOCRINOLOGIC: Denies polyuria, polydipsia, polyphagia or heat/cold intole rances. HEMATOLOGIC: Denies thrombophilia/previous clots, or coagulopathy/bleeding disorders. ONCOLOGIC: Denies personal history of malignancy. DERMATOLOGIC: Denies rashes or pruritus. PSYCHIATRIC: Denies any suicidal or homicidal ideation. Denies hallucinations. PHYSICAL EXAM GENERAL APPEARANCE: The patient is awake, alert, and oriented, in no acute cardiopulmonary distress. NEUROLOGICAL: Cranial nerves II-XII grossly intact. Motor is 5/5 in bilateral upper and lower extremities proximal to distal. No sensory deficits. HEENT: Face is symmetric. Pupils are equal and reactive. Extraocular movements are intact. Missing teeth NECK: Supple. No JVD. No thyromegaly. No submental, submandibular, pre- /postauricular, occipital or supraclavicular lymphadenopathy. CHEST: Normal chest expansion. No Telemetry. LUNGS: Decreased breath sounds and Diffuse rhonchi on bilateral lung chu per auscultation CARDIOVASCULAR: Regular. S1 and S2 normal. No appreciable rubs, + murmurs no gallops. ABDOMEN: Soft, nontender, and nondistended. There is no rebound, voluntary guarding, or rigidity. : Deferred. No So. EXTREMITIES: 2+ edema to bilateral lower extremities and feet with extensive scaling and fungal rash in the intertriginous areas and foul smell. SKIN: No skin breakdown. Vital Signs (last 8hr) Date Time Temp Pulse Resp B/P (MAP) Pulse Ox O2 Delivery O2 Flow Rate FiO2 07/26/24 11:45 99.0 85 20 127/92 100 Room Air 07/26/24 08:07 98.8 88 16 126/85 99 Room Air 07/26/24 08:00 99 Room Air* 0 21 LABS: Laboratory: Test 07/26/24 10:53 07/26/24 05:00 07/25/24 11:17 07/25/24 06:51 Range/Units Whole Blood Glucose 246 #H 70-110 MG/DL Bedside Glucose Comment Notified Nurse White Blood Count 6.4 4.8-10.8 K/uL Red Blood Count 4.45 L 4.50-6.20 MIL/uL Hemoglobin 11.5 L 14.0-18.0 g/dL Hematocrit 35.9 L 42-54 % Mean Corpuscular Volume 80.7 79-99 fL Mean Corpuscular Hemoglobin 25.8 L 27.0-33.0 pg Mean Corpuscular Hemoglobin Concent 32.0 32.0-36.0 g/dL Red Cell Distribution Width 18.9 H 11.0-15.5 % Platelet Count 206 130-400 K/uL Mean Platelet Volume 9.7 7.5-10.5 fL Nucleated Red Blood Cells 0.0 0.0-0.19 % Sodium Level 133 L 136-145 mmol/L Potassium Level 3.5 3.5-5.1 mmol/L Chloride Level 100 L 101-111 mmol/L Carbon Dioxide Level 22 21-32 mmol/L Blood Urea Nitrogen 33 H 7-18 mg/dL Creatinine 1.5 H 0.5-1.3 mg/dL Glomerular Filtration Rate Calc 53 >90 mL/min Random Glucose 140 H 70-105 mg/dL Total Calcium 7.8 L 8.5-10.1 mg/dL Magnesium Level 1.60 L 1.80-2.40 mg/dL Total Bilirubin 1.0 # 0.2-1.0 mg/dL Aspartate Amino Transf (AST/SGOT) 20 10-37 U/L Alanine Aminotransferase (ALT/SGPT) 38 12-78 U/L Alkaline Phosphatase 144 H 50-136 U/L Total Protein 5.8 L 6.0-8.3 g/dL Albumin 2.7 L 3.5-5.0 g/dL Troponin I High Sensitivity 751 *H 4-75 ng/L Immature Granulocyte % (Auto) 0.3 0-1 % Neutrophils (%) (Auto) 71.8 40.0-77.0 % Lymphocytes (%) (Auto) 13.2 L 21.0-51.0 % Monocytes (%) (Auto) 13.4 H 3.0-13.0 % Eosinophils (%) (Auto) 1.0 0.0-8.0 % Basophils (%) (Auto) 0.3 0.0-5.0 % Neutrophils # (Auto) 4.2 1.8-7.7 K/uL Lymphocytes # (Auto) 0.8 L 1.0-4.8 K/uL Monocytes # (Auto) 0.8 0.1-1.0 K/uL Eosinophils # (Auto) 0.06 0.00-0.70 K/uL Basophils # (Auto) 0.02 0.00-0.20 K/uL Absolute Immature Granulocyte (auto 0.02 0-1 K/uL Hemoglobin A1c 7.4 H 4.0-6.0 % Estimated Average Glucose (eAG) 166 H 70-126 mg/dL Ionized Calcium 1.15 L 1.16-1.32 MMOL/L B-Type Natriuretic Peptide 4440 H 0-100 pg/mL Triglycerides Level 49 30-200 mg/dL Cholesterol Level 115 <200 mg/dL LDL Cholesterol 53 0-99 mg/dL HDL Cholesterol 54 29-71 mg/dL Thyroid Stimulating Hormone (TSH) 7.40 H 0.36-3.74 uIU/mL Test 07/25/24 01:06 07/24/24 20:52 07/24/24 19:38 Range/Units Urine Opiates Screen NEGATIVE NEGATIVE Urine Barbiturates Screen NEGATIVE NEGATIVE Urine Phencyclidine Screen NEGATIVE NEGATIVE Urine Amphetamines Screen NEGATIVE NEGATIVE Urine Benzodiazepines Screen NEGATIVE NEGATIVE Urine Cocaine Screen POSITIVE H NEGATIVE Urine Marijuana (THC) Screen POSITIVE H NEGATIVE Troponin I < 0.05 0.00-0.05 ng/mL Red Blood Cell Morphology ANISO 1+ Current Medications Medications (Trade) Dose Ordered Sig/Mindy Route PRN Reason Start Time Stop Time Status Last Admin Dose Admin Acetaminophen (TYLenol 325MG TAB) 650 mg Q4H PRN PO MILD PAIN (1-3) 07/24/24 23:30 08/23/24 23:29 Acetaminophen (TYLenol 325MG TAB) 650 mg Q6H PRN PO TEMPERATURE GREATER THAN 101.5 07/24/24 23:30 08/23/24 23:29 Aspirin (Aspirin 81mg Ec Tab) 81 mg DAILY PO 07/25/24 09:00 08/24/24 08:59 07/26/24 09:49 81 MG Atorvastatin Calcium (LIPItor 40MG) 40 mg HS PO 07/25/24 21:00 08/24/24 20:59 07/25/24 20:41 40 MG Clopidogrel Bisulfate (plaVIX 75MG) 75 mg DAILY PO 07/25/24 09:00 08/24/24 08:59 07/26/24 09:49 75 MG Dextrose (D50w) 50 ml AD PRN IV HYPOGLYCEMIA PROTOCOL 07/24/24 23:30 08/23/24 23:29 Famotidine (Pepcid 20mg Tab) 20 mg Q24H PO 07/25/24 09:00 08/24/24 08:59 07/26/24 09:49 20 MG Furosemide (LASix 40MG VIAL) 40 mg Q12H9 IVP 07/25/24 09:30 08/24/24 09:29 07/26/24 11:42 40 MG Furosemide (LASix 40MG VIAL) 40 mg Q8H IVP 07/24/24 23:30 07/25/24 09:02 DC 07/25/24 07:56 40 MG Glucagon (Glucagon 1mg Kit) 1 mg AD PRN IM HYPOGLYCEMIA PROTOCOL 07/24/24 23:30 08/23/24 23:29 Guaifenesin/ Dextromethorphan (RobiTUSSin DM 200/20MG 10ML) 10 ml Q4H PRN PO COUGH 07/24/24 23:30 08/23/24 23:29 Heparin Sodium (Porcine) (HEParin 5,000 UNIT VIAL) 5,000 unit BID SQ 07/25/24 09:00 08/24/24 08:59 07/26/24 09:54 5,000 UNIT Hydralazine HCl (APRESOLine 20MG INJ) 10 mg Q6H PRN IV For:SBP above 160;DBP above 90 07/24/24 23:30 08/23/24 23:29 07/25/24 12:25 10 MG Insulin Human Regular (humuLIN R 100 UNIT/ML 3ML) INSULIN SLIDING SCAL... ACHS SQ 07/25/24 07:30 08/24/24 07:29 07/26/24 12:16 4 UNIT Ketorolac Tromethamine (toRADol) 15 mg Q6H PRN IV MODERATE PAIN (4-6) 07/24/24 23:30 07/29/24 23:29 07/25/24 08:34 15 MG Losartan Potassium (CozAAR 25MG TAB) 25 mg DAILY20 PO 07/26/24 20:00 08/25/24 19:59 Magnesium Sulfate 50 ml @ 0 mls/hr PROTOCOL PRN IV OTHER [SEE ORDER COMMENTS] 07/24/24 23:30 08/23/24 23:29 Metoprolol Succinate (TopROL XL) 25 mg DAILY PO 07/26/24 09:00 08/25/24 08:59 07/26/24 09:49 25 MG Nitroglycerin (Nitrostat) 0.4 mg PROTOCOL PRN SL CHEST PAIN 07/24/24 23:30 08/23/24 23:29 Ondansetron HCl (zoFRAN 4MG INJ) 4 mg Q6H PRN IV NAUSEA/VOMITING 07/24/24 23:30 08/23/24 23:29 Potassium Chloride 100 ml @ 100 mls/hr AD PRN IV POTASSIUM PROTOCOL 07/24/24 23:30 08/23/24 23:29 Potassium Chloride (K-Dur/Klor-Con 20meq) 20 meq AD PRN PO POTASSIUM PROTOCOL 07/24/24 23:30 08/23/24 23:29 Potassium Chloride (KCl 10% Elixir 20meq/15ml) 20 meq AD PRN PO POTASSIUM PROTOCOL 07/24/24 23:30 08/23/24 23:29 Spironolactone (Aldactone 25mg) 25 mg DAILY PO 07/26/24 09:00 08/25/24 08:59 07/26/24 09:49 25 MG DIAGNOSTICS / RADIOLOGY: [place] [address] IMAGING REPORT Signed PATIENT: DIANELYS ALMODOVAR MR#: [id number] : 1960 SEX: M AGE: 63 LOCATION: ED ORDER 15 STATUS: REG REPORT#: [id number] SERVICE 12 REASON: Chest pain and Shirtness of breath ORDERING PHYSICIAN: JOSE L BAILEY MD PROCEDURE: CXR1VW - CHEST 1VW INDICATION: Chest pain and is of breath TECHNIQUE: CHEST 1VW COMPARISON: 07/04/2024 FINDINGS/IMPRESSION: Prominent bilateral interstitial markings which may represent bronchitis or vascular congestion in the proper clinical setting. Cardiomegaly is seen Mild degenerative changes of the spine. The visualized upper abdomen appears unremarkable. DICTATED BY: JUAN BECERRIL MD DATE: 07/24/242101 ELECTRONICALLY SIGNED BY: JUAN BECERRIL MD DATE: 07/24/242104 ASSESSMENT: Chest pain rule out ACS POA Acute on chronic CHF exacerbation POA Polysubstance abuse POA Homelessness POA Medical noncompliance POA Hypertension POA Diabetes POA Hyperlipidemia POA Chronic anemia due to CKD POA Hyponatremia secondary to volume overload POA Stage 3 renal disease POA active smoker POA Ischemic cardiomyopathy EF 20-25% POA PLAN: Continue patient in medical telemetry Continue on heart healthy and consistent carb diet Chest pain rule out ACS POA Acute on chronic CHF exacerbation POA Ischemic cardiomyopathy EF 20-25% POA Continue on Aspirin & statin, clopidogrel. Continue Lasix 40 mg IV Q8H Continue daily weight and Strict I&O May use oxygen supplementation to keep Saturation above 92% BNP increased to 4440 from 4050. Trended troponin levels 752, 728, 189. Restrict Fluid 1.5L/day Cardiology consult appreciated and will follow their recommendations consulting delinquency prevention social worker. Started on Metoprolol and Losartan. Hypertension POA BP is 126/85 Continue home medications as prescribed. Diabetes Mellitus POA Continue on insulin sliding scale AC & HS with hypoglycemia protocol Continue to replace electrolytes as needed per protocol Stage 3 renal disease POA BUN 33 and creatinine 1.5 Polysubstance abuse POA Urine drug screening is positive for cocaine and marijuana. Continue prn medication for fever,pain,cough , nausea & vomiting Continue on Heparin 5000 subcut bid for DVT for prohylaxis Continue on Famotidine 20 mg po bid for GI prophylaxis ATTESTATION BY PHYSICIAN I have seen and examined the patient. I reviewed the documentation, medical de cision making, and treatment plan as noted by the resident provider above. I agree with the findings and plan of care. Milton Garza MD, KRUPALI P MD Jul 26, 2024 14:49
[2024-07-26] MEDS: LoSARTan 25 MG TABLET PO SCH (20:14)
[2024-07-26] MEDS: acetaMINOPHEN 325 MG TAB PO PRN (20:22)
[2024-07-27] VITALS (8 sets, daily range): BP systolic 114–145; BP diastolic 74–95; PULSE 70–79; RESP 16–18; TEMP 97.2–97.8; O2SAT 96–100
[2024-07-27 06:09] LABS: CREATININE 1.7 mg/dL (0.5-1.3); MAGNESIUM 1.6 mg/dL (1.80-2.40); POTASSIUM 4.4 mmol/L (3.5-5.1)
[2024-07-27] MEDS: MAGNESIUM 2GM PREMIX 50ML 50 ML IV PRN (06:11)
[2024-07-27 07:10] LABS: HEMATOCRIT 34.6 % (42-54); MEAN CORPUSCULAR HEMOGLOBIN 25.2 pg (27.0-33.0); MEAN CORPUSCULAR HGB CONC 30.9 g/dL (32.0-36.0); MEAN CORPUSCULAR VOLUME 81.6 fL (79-99); RED BLOOD CELL COUNT(AUTO) 4.24 MIL/uL (4.50-6.20); WHITE BLOOD COUNT (AUTO) 5.6 K/uL (4.8-10.8)
--- NOTE | 2024-07-27 07:18 | PN ---
[facility] Cardiology Progress Note Reps on cardiology progress note July 27, 2024 Problems: 1. Acute on chronic combined systolic and diastolic congestive heart failure 2. Ischemic cardiomyopathy with ejection fraction of 20-25% and grade 2 diastolic left ventricular dysfunction 3. [id number] mitral regurgitation 4. Noncompliance with medication and follow up 5. Homeless status 6. Acute on chronic kidney disease 7. Hypertension 8. Dyslipidemia 9. Diabetes mellitus type 2 10. History of polysubstance abuse The patient diuresed almost 6 L during the 1st 24 hours and 1500 cc yesterday. Blood pressure running 120-130 systolic heart rate is in the 70s. Patient is afebrile. Hemoglobin 10.7 Platelet count [id number]. Potassium 4.4 BUN38 creatinine 1.7 Baseline creatinine on admission was 1.8. The patient continues on aspirin atorvastatin clopidogrel subQ heparin insulin scale losartan metoprolol succinate potassium protocol and spironolactone. He still has elevated jugular venous pressure and bibasilar rales. We will continue with IV diuresis another 24 hours. Anticipate discharge home in 24 hours. Social service has been asked to evaluate the patient to see if he can be referred to a clinic to provide care and medications. LANETTE MCLEAN MD Jul 27, 2024 07:18
--- NOTE | 2024-07-27 11:19 | PN ---
[facility] PROGRESS NOTE Date of Service: Jul 27, 2024 Time of Service: 11:08 SUBJECTIVE: The patient has been seen and examined during my rounding, no acute events overnight, comfortably in bed, BP 141/97, afebrile, saturating normal on room air. The patient admits to using crack, not showing signs of withdrawal, not combative, not agitated, he is cooperating well. He is homeless. He denies chest pain, no shortness a breath, no nausea, no vomiting, no abdominal discomfort, he feels hungry. 07/26/24 the patient was gone for shower when I went to see him this morning. Later in the morning have not to see patient again and examined. He is complaining of shortness of breath, chest pain 8/10 and bilateral lower extremity edema Lt > Rt. He denies fever, chills, nausea or vomiting. Input is 900, output 5930 and balance -5030. His vitals are stable. BP 126/85. Increased the caloric intake upto 2400 kcal. 07/27/24 The patient is seen and evaluated today. He is complaining of shortness of breath, body ache, chest pain and back pain, he is asking for stronger pain medications. Intake 1450, output 1500. His BUN 38, creatinine 1.7. Mg 1.60. The patient will receive IV Lasix once the nurse is able to put an IV line. As per Cardiology, patient will continue with IV diuresis for another 24 hours and anticipate discharge in 24 hours. REVIEW OF SYSTEMS CONSTITUTIONAL: Denies fevers, chills, or night sweats. No unintentional weight loss reported. NEUROLOGICAL: Denies headache, amaurosis fugax, motor weakness, sensory deficit, vertigo/spinning sensation, gait abnormalities, or tremors. ENT: No hearing loss, otalgia, otorrhea, rhinitis, rhinorrhea, hoarseness, or sore throat. CARDIOVASCULAR: Complain of chest pain and palpitation Denies orthopnea, paroxysmal nocturnal dyspnea, life-threatening arrhythmias, claudication. PULMONARY: Complain of shortness of breaths and productive cough Denies hemoptysis, pleuritic chest pain. SLEEP: Denies morning headaches, daytime somnolence or napping. Denies difficulty falling asleep, staying asleep, waking from sleep. Denies knowledge of snoring. GASTROINTESTINAL: Denies any type of dysphagia to either liquids or solids. Denies nausea, vomiting, pyrosis, early satiety, abdominal pain, diarrhea, constipation, or changes in stool consistency or caliber. Denies coffee-ground emesis, hematemesis, hematochezia, or melanotic stools. GENITOURINARY: Denies frequency, urgency, nocturia, hematuria or incontinence (Storage/Irritative symptoms.) Low urinary stream, straining to void, urinary intermittency or hesitancy, splitting of the voiding stream, terminal dribbling. ENDOCRINOLOGIC: Denies polyuria, polydipsia, polyphagia or heat/cold intolerances. HEMATOLOGIC: Denies thrombophilia/previous clots, or coagulopathy/bleeding disorders. ONCOLOGIC: Denies personal history of malignancy. DERMATOLOGIC: Denies rashes or pruritus. PSYCHIATRIC: Denies any suicidal or homicidal ideation. Denies hallucinations. PHYSICAL EXAM GENERAL APPEARANCE: The patient is awake, alert, and oriented, in no acute cardiopulmonary distress. NEUROLOGICAL: Cranial nerves II-XII grossly intact. Motor is 5/5 in bilateral upper and lower extremities proximal to distal. No sensory deficits. HEENT: Face is symmetric. Pupils are equal and reactive. Extraocular movements are intact. Missing teeth NECK: Supple. No JVD. No thyromegaly. No submental, submandibular, pre- /postauricular, occipital or supraclavicular lymphadenopathy. CHEST: Normal chest expansion. No Telemetry. LUNGS: Decreased breath sounds and Diffuse rales on bilateral lung chu per auscultation CARDIOVASCULAR: Regular. S1 and S2 normal. No appreciable rubs, + murmurs no gallops. ABDOMEN: Soft, nontender, and nondistended. There is no rebound, voluntary guarding, or rigidity. : Deferred. No So. EXTREMITIES: 2+ edema to bilateral lower extremities and feet with extensive scaling and fungal rash in the intertriginous areas and foul smell. SKIN: No skin breakdown. Vital Signs (last 8hr) Date Time Temp Pulse Resp B/P (MAP) Pulse Ox O2 Delivery O2 Flow Rate FiO2 07/27/24 10:59 96 Room Air* 0 21 07/27/24 08:00 97.2 78 16 126/94 96 Room Air 21 07/27/24 04:36 97.7 79 18 136/93 99 Room Air LABS: Laboratory: Test 07/27/24 10:50 07/27/24 06:50 07/27/24 04:53 07/26/24 10:53 Range/Units Whole Blood Glucose 195 H 70-110 MG/DL White Blood Count 5.6 4.8-10.8 K/uL Red Blood Count 4.24 L 4.50-6.20 MIL/uL Hemoglobin 10.7 L 14.0-18.0 g/dL Hematocrit 34.6 L 42-54 % Mean Corpuscular Volume 81.6 79-99 fL Mean Corpuscular Hemoglobin 25.2 L 27.0-33.0 pg Mean Corpuscular Hemoglobin Concent 30.9 L 32.0-36.0 g/dL Red Cell Distribution Width 19.0 H 11.0-15.5 % Platelet Count 206 130-400 K/uL Mean Platelet Volume 10.2 7.5-10.5 fL Nucleated Red Blood Cells 0.0 0.0-0.19 % Sodium Level 137 136-145 mmol/L Potassium Level 4.4 3.5-5.1 mmol/L Chloride Level 104 101-111 mmol/L Carbon Dioxide Level 22 21-32 mmol/L Blood Urea Nitrogen 38 H 7-18 mg/dL Creatinine 1.7 H 0.5-1.3 mg/dL Glomerular Filtration Rate Calc 45 >90 mL/min Random Glucose 196 H 70-105 mg/dL Total Calcium 8.2 L 8.5-10.1 mg/dL Magnesium Level 1.60 L 1.80-2.40 mg/dL Bedside Glucose Comment Notified Nurse Test 07/26/24 05:00 07/25/24 11:17 Range/Units Total Bilirubin 1.0 # 0.2-1.0 mg/dL Aspartate Amino Transf (AST/SGOT) 20 10-37 U/L Alanine Aminotransferase (ALT/SGPT) 38 12-78 U/L Alkaline Phosphatase 144 H 50-136 U/L Total Protein 5.8 L 6.0-8.3 g/dL Albumin 2.7 L 3.5-5.0 g/dL Troponin I High Sensitivity 751 *H 4-75 ng/L Current Medications Medications (Trade) Dose Ordered Sig/Mindy Route PRN Reason Start Time Stop Time Status Last Admin Dose Admin Acetaminophen (TYLenol 325MG TAB) 650 mg Q4H PRN PO MILD PAIN (1-3) 07/24/24 23:30 08/23/24 23:29 Acetaminophen (TYLenol 325MG TAB) 650 mg Q6H PRN PO TEMPERATURE GREATER THAN 101.5 07/24/24 23:30 08/23/24 23:29 07/26/24 20:22 650 MG Aspirin (Aspirin 81mg Ec Tab) 81 mg DAILY PO 07/25/24 09:00 08/24/24 08:59 07/27/24 09:47 81 MG Atorvastatin Calcium (LIPItor 40MG) 40 mg HS PO 07/25/24 21:00 08/24/24 20:59 07/26/24 20:14 40 MG Clopidogrel Bisulfate (plaVIX 75MG) 75 mg DAILY PO 07/25/24 09:00 08/24/24 08:59 07/27/24 09:47 75 MG Dextrose (D50w) 50 ml AD PRN IV HYPOGLYCEMIA PROTOCOL 07/24/24 23:30 08/23/24 23:29 Famotidine (Pepcid 20mg Tab) 20 mg Q24H PO 07/25/24 09:00 08/24/24 08:59 07/27/24 09:47 20 MG Furosemide (LASix 40MG VIAL) 40 mg Q12H9 IVP 07/25/24 09:30 08/24/24 09:29 07/27/24 09:34 40 MG Furosemide (LASix 40MG VIAL) 40 mg Q8H IVP 07/24/24 23:30 07/25/24 09:02 DC 07/25/24 07:56 40 MG Glucagon (Glucagon 1mg Kit) 1 mg AD PRN IM HYPOGLYCEMIA PROTOCOL 07/24/24 23:30 08/23/24 23:29 Guaifenesin/ Dextromethorphan (RobiTUSSin DM 200/20MG 10ML) 10 ml Q4H PRN PO COUGH 07/24/24 23:30 08/23/24 23:29 Heparin Sodium (Porcine) (HEParin 5,000 UNIT VIAL) 5,000 unit BID SQ 07/25/24 09:00 08/24/24 08:59 07/26/24 20:15 5,000 UNIT Hydralazine HCl (APRESOLine 20MG INJ) 10 mg Q6H PRN IV For:SBP above 160;DBP above 90 07/24/24 23:30 08/23/24 23:29 07/25/24 12:25 10 MG Insulin Human Regular (humuLIN R 100 UNIT/ML 3ML) INSULIN SLIDING SCAL... ACHS SQ 07/25/24 07:30 08/24/24 07:29 07/27/24 06:13 3 UNIT Ketorolac Tromethamine (toRADol) 15 mg Q6H PRN IV MODERATE PAIN (4-6) 07/24/24 23:30 07/29/24 23:29 07/25/24 08:34 15 MG Losartan Potassium (CozAAR 25MG TAB) 25 mg DAILY20 PO 07/26/24 20:00 08/25/24 19:59 07/26/24 20:14 25 MG Magnesium Sulfate 50 ml @ 0 mls/hr PROTOCOL PRN IV OTHER [SEE ORDER COMMENTS] 07/24/24 23:30 08/23/24 23:29 07/27/24 06:11 50 MLS/HR Metoprolol Succinate (TopROL XL) 25 mg DAILY PO 07/26/24 09:00 08/25/24 08:59 07/27/24 09:47 25 MG Nitroglycerin (Nitrostat) 0.4 mg PROTOCOL PRN SL CHEST PAIN 07/24/24 23:30 08/23/24 23:29 Ondansetron HCl (zoFRAN 4MG INJ) 4 mg Q6H PRN IV NAUSEA/VOMITING 07/24/24 23:30 08/23/24 23:29 Potassium Chloride 100 ml @ 100 mls/hr AD PRN IV POTASSIUM PROTOCOL 07/24/24 23:30 08/23/24 23:29 Potassium Chloride (K-Dur/Klor-Con 20meq) 20 meq AD PRN PO POTASSIUM PROTOCOL 07/24/24 23:30 08/23/24 23:29 Potassium Chloride (KCl 10% Elixir 20meq/15ml) 20 meq AD PRN PO POTASSIUM PROTOCOL 07/24/24 23:30 08/23/24 23:29 Spironolactone (Aldactone 25mg) 25 mg DAILY PO 07/26/24 09:00 08/25/24 08:59 07/27/24 09:47 25 MG DIAGNOSTICS / RADIOLOGY: [place] [address] [place], [place] [id number] IMAGING REPORT Signed PATIENT: DIANELYS ALMODOVAR MR#: [id number] : 1960 SEX: M AGE: 63 LOCATION: EDH ORDER 15 STATUS: REG ER REPORT#: [id number] SERVICE 12 REASON: Chest pain and Shirtness of breath ORDERING PHYSICIAN: JOSE L BAILEY MD PROCEDURE: CXR1VW - CHEST 1VW INDICATION: Chest pain and is of breath TECHNIQUE: CHEST 1VW COMPARISON: 07/04/2024 FINDINGS/IMPRESSION: Prominent bilateral interstitial markings which may represent bronchitis or vascular congestion in the proper clinical setting. Cardiomegaly is seen Mild degenerative changes of the spine. The visualized upper abdomen appears unremarkable. DICTATED BY: JUAN BECERRIL MD DATE: 07/24/242101 ELECTRONICALLY SIGNED BY: JUAN BECERRIL MD DATE: 07/24/242104 ASSESSMENT: Chest pain rule out ACS POA Acute on chronic CHF exacerbation POA Polysubstance abuse POA Homelessness POA Medical noncompliance POA Hypertension POA Diabetes POA Hyperlipidemia POA Chronic anemia due to CKD POA Hyponatremia secondary to volume overload POA Stage 3 renal disease POA active smoker POA Ischemic cardiomyopathy EF 20-25% POA PLAN: Continue patient in medical telemetry Continue on heart healthy and consistent carb diet Chest pain rule out ACS POA Acute on chronic CHF exacerbation POA Ischemic cardiomyopathy EF 20-25% POA Continue on Aspirin & statin, clopidogrel. Continue Lasix 40 mg IV Q8H Restrict Fluid 1.5L/day Continue daily weight and Strict I&O May use oxygen supplementation to keep Saturation above 92% Cardiology Dr. Moreira on the case and started on Metoprolol and Losartan. He recommended continue with IV diuresis for another 24 hours and anticipate discharge in 24 hours. One dose Morphine 2g IV will be given for chest pain and severe back pain. technical services consultant consulted regarding the [facility] practice of Dr. Orlando for assistance and the packet is given to the patient. Hypertension POA BP is 126/94 Continue home medications as prescribed. Diabetes Mellitus POA Continue on insulin sliding scale AC & HS with hypoglycemia protocol Continue to replace electrolytes as needed per protocol Stage 3 renal disease POA BUN 38 and creatinine 1.7 Polysubstance abuse POA Urine drug screening is positive for cocaine and marijuana. Mg is 1.60 and magnesium protocol is placed. Continue prn medication for fever,pain,cough , nausea & vomiting Continue on Heparin 5000 subcut bid for DVT for prohylaxis Continue on Famotidine 20 mg po bid for GI prophylaxis ATTESTATION BY PHYSICIAN I have seen and examined the patient. I reviewed the documentation, medical decision making, and treatment plan as noted by the resident provider above. I agree with the findings and plan of care. Milton Garza MD, KRUPALI P MD Jul 27, 2024 11:19
[2024-07-27] MEDS: furoSEMIDE 40 MG TABLET PO SCH (12:35)
[2024-07-27] MEDS: morPHINE 2 MG SYG IVP ONE (14:51)
[2024-07-28] VITALS (8 sets, daily range): BP systolic 117–140; BP diastolic 64–99; PULSE 61–84; RESP 16–20; TEMP 97.5–98.4; O2SAT 94–96
[2024-07-28 05:41] LABS: HEMATOCRIT 39.1 % (42-54); MEAN CORPUSCULAR HEMOGLOBIN 25.4 pg (27.0-33.0); MEAN CORPUSCULAR HGB CONC 30.4 g/dL (32.0-36.0); MEAN CORPUSCULAR VOLUME 83.4 fL (79-99); RED BLOOD CELL COUNT(AUTO) 4.69 MIL/uL (4.50-6.20); RED CELL DISTRIBUTION WIDTH 18.9 % (11.0-15.5); WHITE BLOOD COUNT (AUTO) 7.1 K/uL (4.8-10.8)
[2024-07-28 05:54] LABS: CREATININE 1.7 mg/dL (0.5-1.3); MAGNESIUM 1.9 mg/dL (1.80-2.40); POTASSIUM 4.7 mmol/L (3.5-5.1)
--- NOTE | 2024-07-28 06:50 | PN ---
[facility] Cardiology Progress Note CARDIOLOGY PROGRESS NOTE JULY 28, 2024 Problems: 1. Acute on chronic combined systolic and diastolic congestive heart failure 2. Ischemic cardiomyopathy with ejection fraction of 20-25% and grade 2 diastolic left ventricular dysfunction 3. Hjaxhezv-ut-dzhyah mitral regurgitation 4. Noncompliance with medication and follow up 5. Homeless status 6. Acute on chronic kidney disease 7. Hypertension 8. Dyslipidemia 9. Diabetes mellitus type 2 10. History of polysubstance abuse Anticipated discharge home today however, the patient still has been experie ncing orthopnea still has some persistent edema. When I entered the room entire picture of ice water at the bedside. I have discussed this with the nursing staff explained that he is on a fluid restriction and that he will not improve without this. I&Os yesterday showed adequate urine output of 1300 cc but he took in 1200 and weight is unchanged. I suspect with the full picture water in the room that he took in more than 1200 cc. It appears we are not making any progress without a fluid restriction. This morning blood pressure is 130 over 100 heart rate is in the 70s the patient is afebrile. Potassium 4.7 BUN47 creatinine 1.7 Up from 38 and 1.7 Yesterday. Baseline creatinine 1.8. BUN is starting to rise. Continues on aspirin atorvastatin clopidogrel famotidine losartan metoprolol succinate and spironolactone. He was switched over to oral diuretics yesterday but I believe we will need to resume IV furosemide. We will place him on a reduced dose of 20 mg IV q.12 hours forced fluid restriction and reassess tomorrow. LANETTE MCLEAN MD Jul 28, 2024 06:50
[2024-07-28] MEDS: furoSEMIDE 20MG VIAL IV SCH (08:07)
--- NOTE | 2024-07-28 10:41 | PN ---
[facility] PROGRESS NOTE Date of Service: Jul 28, 2024 Time of Service: 10:30 SUBJECTIVE: The patient has been seen and examined during my rounding, no acute events overnight, comfortably in bed, BP 141/97, afebrile, saturating normal on room air. The patient admits to using crack, not showing signs of withdrawal, not combative, not agitated, he is cooperating well. He is homeless. He denies chest pain, no shortness a breath, no nausea, no vomiting, no abdominal discomfort, he feels hungry. 07/26/24 the patient was gone for shower when I went to see him this morning. Later in the morning have not to see patient again and examined. He is complaining of shortness of breath, chest pain 8/10 and bilateral lower extremity edema Lt > Rt. He denies fever, chills, nausea or vomiting. Input is 900, output 5930 and balance -5030. His vitals are stable. BP 126/85. Increased the caloric intake upto 2400 kcal. 07/27/24 The patient is seen and evaluated today. He is complaining of shortness of breath, body ache, chest pain and back pain, he is asking for stronger pain medications. Intake 1450, output 1500. His BUN 38, creatinine 1.7. Mg 1.60. The patient will receive IV Lasix once the nurse is able to put an IV line. As per Cardiology, patient will continue with IV diuresis for another 24 hours and anticipate discharge in 24 hours. 07/28/24 The patient has been seen and examined, he is complaining of shortness of breath also retaining fluids in his lower extremities. He is on strict 1.5 L fluid restrictions. Quality Assurance Lab Technician Dr. Moreira wants to continue reduced dose of IV Lasix 20 mg for today and reassess tomorrow. His vitals have been stable. Intake 1200 mL, output 1300 and balance -100. His BUN is from 38 to 47 today, creatinine 1.7. REVIEW OF SYSTEMS CONSTITUTIONAL: Denies fevers, chills, or night sweats. No unintentional weight loss reported. NEUROLOGICAL: Denies headache, amaurosis fugax, motor weakness, sensory deficit, vertigo/spinning sensation, gait abnormalities, or tremors. ENT: No hearing loss, otalgia, otorrhea, rhinitis, rhinorrhea, hoarseness, or sore throat. CARDIOVASCULAR: Complain of chest pain and palpitation Denies orthopnea, paroxysmal nocturnal dyspnea, life-threatening arrhythmias, claudication. PULMONARY: Complain of shortness of breaths and productive cough Denies hemoptysis, pleuritic chest pain. SLEEP: Denies morning headaches, daytime somnolence or napping. Denies difficulty falling asleep, staying asleep, waking from sleep. Denies knowledge of snoring. GASTROINTESTINAL: Denies any type of dysphagia to either liquids or solids. Denies nausea, vomiting, pyrosis, early satiety, abdominal pain, diarrhea, constipation, or changes in stool consistency or caliber. Denies coffee-ground emesis, hematemesis, hematochezia, or melanotic stools. GENITOURINARY: Denies frequency, urgency, nocturia, hematuria or incontinence (Storage/Irritative symptoms.) Low urinary stream, straining to void, urinary intermittency or hesitancy, splitting of the voiding stream, terminal dribbling. ENDOCRINOLOGIC: Denies polyuria, polydipsia, polyphagia or heat/cold intolera nces. HEMATOLOGIC: Denies thrombophilia/previous clots, or coagulopathy/bleeding disorders. ONCOLOGIC: Denies personal history of malignancy. DERMATOLOGIC: Denies rashes or pruritus. PSYCHIATRIC: Denies any suicidal or homicidal ideation. Denies hallucinations. PHYSICAL EXAM GENERAL APPEARANCE: The patient is awake, alert, and oriented, in no acute cardiopulmonary distress. NEUROLOGICAL: Cranial nerves II-XII grossly intact. Motor is 5/5 in bilateral upper and lower extremities proximal to distal. No sensory deficits. HEENT: Face is symmetric. Pupils are equal and reactive. Extraocular movements are intact. Missing teeth NECK: Supple. No JVD. No thyromegaly. No submental, submandibular, pre- /postauricular, occipital or supraclavicular lymphadenopathy. CHEST: Normal chest expansion. No Telemetry. LUNGS: Decreased breath sounds and Diffuse rales on bilateral lung chu per auscultation CARDIOVASCULAR: Regular. S1 and S2 normal. No appreciable rubs, + murmurs no gallops. ABDOMEN: Soft, nontender, and nondistended. There is no rebound, voluntary guarding, or rigidity. : Deferred. No So. EXTREMITIES: 2+ edema to bilateral lower extremities and feet with extensive scaling and fungal rash in the intertriginous areas and foul smell. SKIN: No skin breakdown. Vital Signs (last 8hr) Date Time Temp Pulse Resp B/P (MAP) Pulse Ox O2 Delivery O2 Flow Rate FiO2 07/28/24 04:22 97.9 76 18 133/99 99 Room Air LABS: Laboratory: Test 07/28/24 05:31 07/28/24 05:15 07/26/24 10:53 Range/Units White Blood Count 7.1 # 4.8-10.8 K/uL Red Blood Count 4.69 4.50-6.20 MIL/uL Hemoglobin 11.9 L 14.0-18.0 g/dL Hematocrit 39.1 L 42-54 % Mean Corpuscular Volume 83.4 79-99 fL Mean Corpuscular Hemoglobin 25.4 L 27.0-33.0 pg Mean Corpuscular Hemoglobin Concent 30.4 L 32.0-36.0 g/dL Red Cell Distribution Width 18.9 H 11.0-15.5 % Platelet Count 185 130-400 K/uL Mean Platelet Volume 10.4 7.5-10.5 fL Nucleated Red Blood Cells 0.0 0.0-0.19 % Sodium Level 136 136-145 mmol/L Potassium Level 4.7 3.5-5.1 mmol/L Chloride Level 105 101-111 mmol/L Carbon Dioxide Level 21 21-32 mmol/L Blood Urea Nitrogen 47 H 7-18 mg/dL Creatinine 1.7 H 0.5-1.3 mg/dL Glomerular Filtration Rate Calc 45 >90 mL/min Random Glucose 209 H 70-105 mg/dL Total Calcium 8.4 L 8.5-10.1 mg/dL Magnesium Level 1.90 1.80-2.40 mg/dL Whole Blood Glucose 186 H 70-110 MG/DL Bedside Glucose Comment Notified Nurse Current Medications Medications (Trade) Dose Ordered Sig/Mindy Route PRN Reason Start Time Stop Time Status Last Admin Dose Admin Acetaminophen (TYLenol 325MG TAB) 650 mg Q4H PRN PO MILD PAIN (1-3) 07/24/24 23:30 08/23/24 23:29 Acetaminophen (TYLenol 325MG TAB) 650 mg Q6H PRN PO TEMPERATURE GREATER THAN 101.5 07/24/24 23:30 08/23/24 23:29 07/26/24 20:22 650 MG Aspirin (Aspirin 81mg Ec Tab) 81 mg DAILY PO 07/25/24 09:00 08/24/24 08:59 07/28/24 08:44 81 MG Atorvastatin Calcium (LIPItor 40MG) 40 mg HS PO 07/25/24 21:00 08/24/24 20:59 07/27/24 19:48 40 MG Clopidogrel Bisulfate (plaVIX 75MG) 75 mg DAILY PO 07/25/24 09:00 08/24/24 08:59 07/28/24 08:43 75 MG Dextrose (D50w) 50 ml AD PRN IV HYPOGLYCEMIA PROTOCOL 07/24/24 23:30 08/23/24 23:29 Famotidine (Pepcid 20mg Tab) 20 mg Q24H PO 07/25/24 09:00 08/24/24 08:59 07/28/24 08:44 20 MG Furosemide (LASix 20MG VIAL) 20 mg Q12H IV 07/28/24 07:00 08/27/24 06:59 07/28/24 08:07 20 MG Furosemide (LASix 40MG TAB) 40 mg DAILY PO 07/27/24 12:30 07/28/24 06:52 DC 07/27/24 12:35 40 MG Furosemide (LASix 40MG TAB) 40 mg DAILY PO 07/28/24 12:30 07/27/24 12:14 DC Furosemide (LASix 40MG VIAL) 40 mg Q12H9 IVP 07/25/24 09:30 07/27/24 12:11 DC 07/27/24 09:34 40 MG Furosemide (LASix 40MG VIAL) 40 mg Q8H IVP 07/24/24 23:30 07/25/24 09:02 DC 07/25/24 07:56 40 MG Glucagon (Glucagon 1mg Kit) 1 mg AD PRN IM HYPOGLYCEMIA PROTOCOL 07/24/24 23:30 08/23/24 23:29 Guaifenesin/ Dextromethorphan (RobiTUSSin DM 200/20MG 10ML) 10 ml Q4H PRN PO COUGH 07/24/24 23:30 08/23/24 23:29 Heparin Sodium (Porcine) (HEParin 5,000 UNIT VIAL) 5,000 unit BID SQ 07/25/24 09:00 08/24/24 08:59 07/28/24 08:50 5,000 UNIT Hydralazine HCl (APRESOLine 20MG INJ) 10 mg Q6H PRN IV For:SBP above 160;DBP above 90 07/24/24 23:30 08/23/24 23:29 07/25/24 12:25 10 MG Insulin Human Regular (humuLIN R 100 UNIT/ML 3ML) INSULIN SLIDING SCAL... ACHS SQ 07/25/24 07:30 08/24/24 07:29 07/28/24 06:18 2 UNIT Ketorolac Tromethamine (toRADol) 15 mg Q6H PRN IV MODERATE PAIN (4-6) 07/24/24 23:30 07/29/24 23:29 07/25/24 08:34 15 MG Losartan Potassium (CozAAR 25MG TAB) 25 mg DAILY20 PO 07/26/24 20:00 08/25/24 19:59 07/27/24 19:48 25 MG Magnesium Sulfate 50 ml @ 0 mls/hr PROTOCOL PRN IV OTHER [SEE ORDER COMMENTS] 07/24/24 23:30 08/23/24 23:29 07/27/24 06:11 50 MLS/HR Metoprolol Succinate (TopROL XL) 25 mg DAILY PO 07/26/24 09:00 08/25/24 08:59 07/28/24 08:44 25 MG Nitroglycerin (Nitrostat) 0.4 mg PROTOCOL PRN SL CHEST PAIN 07/24/24 23:30 08/23/24 23:29 Ondansetron HCl (zoFRAN 4MG INJ) 4 mg Q6H PRN IV NAUSEA/VOMITING 07/24/24 23:30 08/23/24 23:29 Potassium Chloride 100 ml @ 100 mls/hr AD PRN IV POTASSIUM PROTOCOL 07/24/24 23:30 08/23/24 23:29 Potassium Chloride (K-Dur/Klor-Con 20meq) 20 meq AD PRN PO POTASSIUM PROTOCOL 07/24/24 23:30 08/23/24 23:29 Potassium Chloride (KCl 10% Elixir 20meq/15ml) 20 meq AD PRN PO POTASSIUM PROTOCOL 07/24/24 23:30 08/23/24 23:29 Spironolactone (Aldactone 25mg) 25 mg DAILY PO 07/26/24 09:00 08/25/24 08:59 07/28/24 08:43 25 MG DIAGNOSTICS / RADIOLOGY: [address] [address] IMAGING REPORT Signed PATIENT: DIANELYS ALMODOVAR MR#: [id number] : 1960 SEX: M AGE: 63 LOCATION: EDH ORDER 15 STATUS: REG ER REPORT#: [id number] SERVICE 12 REASON: Chest pain and Shirtness of breath ORDERING PHYSICIAN: JOSE L BAILEY MD PROCEDURE: CXR1VW - CHEST 1VW INDICATION: Chest pain and is of breath TECHNIQUE: CHEST 1VW COMPARISON: 07/04/2024 FINDINGS/IMPRESSION: Prominent bilateral interstitial markings which may represent bronchitis or vascular congestion in the proper clinical setting. Cardiomegaly is seen Mild degenerative changes of the spine. The visualized upper abdomen appears unremarkable. DICTATED BY: JUAN BECERRIL MD DATE: 07/24/242101 ELECTRONICALLY SIGNED BY: JUAN BECERRIL MD DATE: 07/24/242104 ASSESSMENT: Chest pain rule out ACS POA Acute on chronic CHF exacerbation POA Polysubstance abuse POA Homelessness POA Medical noncompliance POA Hypertension POA Diabetes POA Hyperlipidemia POA Chronic anemia due to CKD POA Hyponatremia secondary to volume overload POA Stage 3 renal disease POA active smoker POA Ischemic cardiomyopathy EF 20-25% POA PLAN: Continue patient in medical telemetry Continue on heart healthy and consistent carb diet Chest pain rule out ACS POA Acute on chronic CHF exacerbation POA Ischemic cardiomyopathy EF 20-25% POA Strict Fluid restriction 1.5L/day Continue on Aspirin & statin, clopidogrel. Patient has been experiencing orthopnea and still has some persistent lower extremity edema. May use oxygen supplementation to keep Saturation above 92% Dr. Moreira, market investigator reduced IV furosemide dose to 20 mg. Hypertension POA BP is 133/99 Continue home medications as prescribed. Diabetes Mellitus POA Continue on insulin sliding scale AC & HS with hypoglycemia protocol Random blood glucose is 209. Continue to replace electrolytes as needed per protocol Stage 3 renal disease POA BUN up from 38 to 47 and creatinine 1.7 Polysubstance abuse POA Urine drug screening is positive for cocaine and marijuana. Mg is 1.90 Continue prn medication for fever,pain,cough , nausea & vomiting Continue on Heparin 5000 subcut bid for DVT for prohylaxis Continue on Famotidine 20 mg po bid for GI prophylaxis ATTESTATION BY PHYSICIAN I have seen and examined the patient. I reviewed the documentation, medical decision making, and treatment plan as noted by the resident provider above. I agree with the findings and plan of care. Milton Garza MD, KRUPALI P MD Jul 28, 2024 10:41
[2024-07-28] MEDS ORDERED: furoSEMIDE 40 MG TABLET PO SCH (12:30)
[2024-07-29] MEDS: MELATONIN 5 MG TABLET PO ONE (00:21)
[2024-07-29 03:16] VITALS: BP 130/91; PULSE 78; RESP 16; TEMP 97.7
[2024-07-29 04:41] LABS: HEMATOCRIT 37.2 % (42-54); MEAN CORPUSCULAR HEMOGLOBIN 25.1 pg (27.0-33.0); MEAN CORPUSCULAR HGB CONC 31.2 g/dL (32.0-36.0); MEAN CORPUSCULAR VOLUME 80.3 fL (79-99); RED BLOOD CELL COUNT(AUTO) 4.63 MIL/uL (4.50-6.20); RED CELL DISTRIBUTION WIDTH 18.7 % (11.0-15.5); WHITE BLOOD COUNT (AUTO) 6.4 K/uL (4.8-10.8)
[2024-07-29 04:53] LABS: CREATININE 1.9 mg/dL (0.5-1.3)
[2024-07-29 04:57] LABS: BILIRUBIN,TOTAL 0.6 mg/dL (0.2-1.0); MAGNESIUM 2.4 mg/dL (1.80-2.40); TOTAL PROTEIN, SERUM 6.6 g/dL (6.0-8.3)
[2024-07-29 07:20] VITALS: BP 118/70; PULSE 74; RESP 18; TEMP 98.6
--- NOTE | 2024-07-29 07:20 | PN ---
[facility] Cardiology Progress Note CARDIOLOGY PROGRESS NOTE JULY 29, 2024 Problems: 1. Acute on chronic combined systolic and diastolic congestive heart failure 2. Ischemic cardiomyopathy with ejection fraction of 20-25% and grade 2 diastolic left ventricular dysfunction 3. Xvlwyvxq-ab-wyvxjl mitral regurgitation 4. Noncompliance with medication and follow up 5. Homeless status 6. Acute on chronic kidney disease 7. Hypertension 8. Dyslipidemia 9. Diabetes mellitus type 2 10. History of polysubstance abuse Blood pressure running 130/80 heart rate in the 70s to 80s. Patient is af ebrile. Hemoglobin 11.6 platelet count . Potassium 4.0 BUN 51 creatinine 1.9 up from 47 and 1.7 yesterday. Baseline creatinine 1.8. The patient continues on aspirin atorvastatin clopidogrel furosemide 20 mg IV q.12 hours subQ heparin insulin scale losartan metoprolol succinate potassium protocol and spironolactone. I&Os yesterday were 860 intake output 14 50. Weight has dropped another 0.5 kilos. LANETTE MCLEAN MD Jul 29, 2024 07:19
[2024-07-29] MEDS ORDERED: FURO40TA5 PO (07:31)
[2024-07-29] MEDS ORDERED: SPIR25TA6 PO (07:31)
[2024-07-29] MEDS ORDERED: LOSA-417 PO (07:31)
[2024-07-29] MEDS ORDERED: METO25TA3 PO (07:31)
[2024-07-29 08:10] VITALS: O2SAT 94
[2024-07-29] MEDS: furoSEMIDE 40 MG TABLET PO SCH (08:56)
[2024-07-29 11:31] VITALS: BP 126/64; PULSE 68; RESP 17; TEMP 98.2
--- NOTE | 2024-07-29 12:28 | DS ---
Discharge Summary Hospital Course Summary: This is a 63-year-old male,a homeless with past medical history of CHF, coronary artery disease,moderate to severe mitral regurgitation ,ischemic cardiomyopathy,diabetes,hypertension,hyperlipidemia , polysubstance abuse, noncompliance with medication and chronic renal disease who was brought by EMS to the ED on 07/24/24 for complaints of chest pain which he described as chest pressure for over 2 hours. Patient was having productive cough with mucopurulent sputum for the past few days with increasing edema to bilateral lower extremities. Patient stated he suddenly felt chest pain with palpitation and became short of breath. Patient was recently discharged on 07/07/24 for similar complaints and was diagnosed with CHF exacerbation and ACS Patient denied fever,chills, abdominal pain ,dysuria ,nausea and vomiting. His Labs on presentation: Hemoglobin 10.8, hematocrit 34.3 platelet count 215. BNP 4050 troponin less than 0.05 sodium 134, BUN 31, creatinine 1.8, GFR 42, glucose 140 total calcium 8.4. ECG result revealed sinus rhythm heart rate 83. Chest x-ray result revealed prominent bilateral interstitial markings which may represent bronchitis or vascular congestion in the proper clinical setting. While in the ER patient received morphine 2 mg IV and furosemide 40 mg IV. Patient was admitted for further medical management. Cardiology Dr. Sergio Moreira was consulted who recommended patient on strict fluid restriction 1.5 L a day and 40 mg IV lasix. Over the course of hospitalization, his caloric intake was increased upto 2400 kcal. Daily I&O maintained. Although patient kept asking for more fluids. His vitals have been stable over the hospitalization. Patient has been treated with IV Furosemide and on 07/29/24 his swelling has gone down and today he feels better. Clinically he is much better today and good for dis charge from Cardiology standpoint. His BUN went up from 57 to 51 today and creatinine is 1.9, baseline is 1.8. Clinically he is stable for discharge today. Patient to continue Furosemide and home medications. Patient is recommended to follow up with PCP in 3-5 days and with Cardiology with Dr. Sergio Moreira in 1 week after discharge. Director Metabolism(s): Cardiology : Dr. Sergio Moreira Procedure(s): [place] [address] [place] [address] IMAGING REPORT Signed PATIENT: DIANELYS ALMODOVAR MR#: [id number] : 1960 SEX: M AGE: 63 LOCATION: ED ORDER 15 STATUS: REG ER REPORT#: [id number] SERVICE 12 REASON: Chest pain and Shirtness of breath ORDERING PHYSICIAN: JOSE L BAILEY MD PROCEDURE: CXR1VW - CHEST 1VW INDICATION: Chest pain and is of breath TECHNIQUE: CHEST 1VW COMPARISON: 07/04/2024 FINDINGS/IMPRESSION: Prominent bilateral interstitial markings which may represent bronchitis or vascular congestion in the proper clinical setting. Cardiomegaly is seen Mild degenerative changes of the spine. The visualized upper abdomen appears unremarkable. 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 Assessment/Plan: ASSESSMENT: Chest pain ruled out ACS POA Acute on chronic CHF exacerbation POA Polysubstance abuse POA Homelessness POA Medical noncompliance POA Hypertension POA Diabetes POA Hyperlipidemia POA Chronic anemia due to CKD POA Hyponatremia secondary to volume overload improve Stage 3 renal disease POA active smoker POA Ischemic cardiomyopathy EF 20-25% POA Discharge Instructions: ADMISSION DATE : 07/24/24 DISCHARGE DATE : 07/29/24 DISPOSITION : Home CONDITION : Stable Director Metabolism(s) : Cardiology : Dr. Moreira FOLLOW UP APPOINTMENTS : Patient to follow-up with the primary care physician within 3-5 days and communications planner Dr. Moreira in 1 week upon discharge. PROCEDURES : None IMAGING (s) : Report attached to summary : Chest x-ray and EKG MICROBIOLOGY : None ACTIVITY : ab deandra HOME MEDICATIONS : Continue; Discontinued Clopidogrel. NEW MEDICATIONS : Furosemide 40 mg daily TEACHING : We reinforced the importance of medication compliance and with follow up appointments. Advised patient to follow-up with the primary care physician within 3-5 days and communications planner Dr. Moreira in 1 week upon discharge. Emergency instructions : The patient was instructed to present to the nearest Emergency Department or call 911 should their symptoms return or worsen. Home Medications: Active Scripts Clopidogrel Bisulfate (Plavix) 75 Mg Tablet, 75 MG PO DAILY for 30 Days, #30 TAB Prov:MARCELINA RODRIGUEZ NP 06/02/24 Nitroglycerin (Nitroglycerin) 0.4 Mg Tab.subl, 0.4 MG SL [id number] PRN for chest pain, #30 TAB.SL 1 Refill Prov:MARY LU MD 11/28/23 Aspirin (ASPIRIN 81 MG ECTAB) 81 Mg Ectab, 81 MG PO DAILY for 30 Days, #30 TAB.EC 2 Refills Prov:MARY LU MD 11/28/23 Atorvastatin Calcium (Atorvastatin Calcium) 40 Mg Tablet, 40 MG PO HS for 30 Days, #90 TAB 3 Refills Prov:MARY LU MD 11/28/23 New Medications: Furosemide (Furosemide) 40 Mg Tablet 40 MG PO DAILY, #30 TAB 3 Refills Losartan Potassium (Cozaar) 25 Mg Tablet 25 MG PO DAILY20, #30 TAB 3 Refills Metoprolol Succinate (Toprol Xl) 25 Mg Tab.er.24h 25 MG PO DAILY, #30 TAB 3 Refills Spironolactone (Spironolactone) 25 Mg Tablet 25 MG PO DAILY, #30 TAB 3 Refills Continued Medications: Aspirin (Aspirin 81 Mg Ectab) 81 Mg Ectab 81 MG PO DAILY for 30 Days, #30 TAB.EC 2 Refills Atorvastatin Calcium (Atorvastatin Calcium) 40 Mg Tablet 40 MG PO HS for 30 Days, #90 TAB 3 Refills Nitroglycerin (Nitroglycerin) 0.4 Mg Tab.subl 0.4 MG SL [id number] PRN for chest pain, #30 TAB.SL 1 Refill Discontinued Medications: Clopidogrel Bisulfate (Plavix) 75 Mg Tablet 75 MG PO DAILY for 30 Days, #30 TAB Time spent arranging discharge: 1-30 minutes ATTESTATION BY PHYSICIAN I have seen and examined the patient. I reviewed the documentation, medical decision making, and treatment plan as noted by the resident provider above. I agree with the findings and plan of care. Milton Garza MD, KRUPALI P MD Jul 29, 2024 12:28
[2024-07-29 14:10] VITALS: BP 148/68; PULSE 79; RESP 20; TEMP 97.1
== END 2024-07-29 18:05 | disposition home or self-care (01) | DRG 291 ==
LOC: EDH 19:16 → EDHIP 23:03 → 4AH 07-25 20:54
PROVIDERS: ADMIT Internal Medicine; ATTEND Internal Medicine
DX: I13.0 Hypertensive heart and chronic kidney disease with heart failure and stage 1 through stage 4 chronic kidney disease, or unspecified chronic kidney disease (principal); I50.43 Acute on chronic combined systolic (congestive) and diastolic (congestive) heart failure; E87.1 Hypo-osmolality and hyponatremia; N17.9 Acute kidney failure, unspecified; Z59.00 Homelessness unspecified; N18.9 Chronic kidney disease, unspecified; D63.1 Anemia in chronic kidney disease; E11.22 Type 2 diabetes mellitus with diabetic chronic kidney disease; F17.200 Nicotine dependence, unspecified, uncomplicated; I25.5 Ischemic cardiomyopathy; E11.65 Type 2 diabetes mellitus with hyperglycemia; E78.00 Pure hypercholesterolemia, unspecified; F43.10 Post-traumatic stress disorder, unspecified; F14.10 Cocaine abuse, uncomplicated; G89.29 Other chronic pain; I25.10 Atherosclerotic heart disease of native coronary artery without angina pectoris; Z91.199 Patient's noncompliance with other medical treatment and regimen due to unspecified reason; I25.2 Old myocardial infarction; Z82.49 Family history of ischemic heart disease and other diseases of the circulatory system; Z83.3 Family history of diabetes mellitus; Z86.73 Personal history of transient ischemic attack (TIA), and cerebral infarction without residual deficits; Z91.148 Patient's other noncompliance with medication regimen for other reason
CPT/HCPCS: 36415; 71045; 80048; 80053; 80061; 80305; 82330; 82948; 83036; 83735; 83880; 84443; 84484; 85025; 85027; 93005; 96374; 96375; G0378; J0360; J1644; J1815; J1885; J1940; J2270; J3475

== ENCOUNTER 2024-08-21 19:08 | Inpatient (IN) | payer OTHER ==
[~2024-08-21] VITALS: Ht 167.6 cm; Wt 63.2 kg
[~2024-08-21 19:08] MED LIST changes: -CLOP-31 PO; +FURO40TA5 PO; +LOSA-417 PO; +METO25TA3 PO; +SPIR25TA6 PO
[2024-08-21] MEDS ORDERED: ALBUTEROL 0.083% 2.5 MG/3 ML INH IH ONE (19:30)
[2024-08-21 19:32] LABS: BASOPHILS # (AUTO) 0.01 K/uL (0.00-0.20); BASOPHILS % (AUTO) 0.1 % (0.0-5.0); HEMATOCRIT 43.7 % (42-54); IMMATURE GRANULOCYTE ABSOLUTE 0.05 K/uL (0-1); LYMPHOCYTES # (AUTO) 0.4 K/uL (1.0-4.8); LYMPHOCYTES % (AUTO) 4.6 % (21.0-51.0); MEAN CORPUSCULAR HGB CONC 30.7 g/dL (32.0-36.0); MEAN CORPUSCULAR VOLUME 81.7 fL (79-99); MONOCYTES # (AUTO) 0.4 K/uL (0.1-1.0); MONOCYTES % (AUTO) 4.9 % (3.0-13.0); NEUTROPHILS # (AUTO) 7.7 K/uL (1.8-7.7); NEUTROPHILS % (AUTO) 89.8 % (40.0-77.0); PLATELET COUNT (AUTO) 202 K/uL (130-400); RED BLOOD CELL COUNT(AUTO) 5.35 MIL/uL (4.50-6.20); RED CELL DISTRIBUTION WIDTH 19.9 % (11.0-15.5); WHITE BLOOD COUNT (AUTO) 8.6 K/uL (4.8-10.8)
--- NOTE | 2024-08-21 19:39 | ERN ---
General Chief Complaint: Shortness of Breath Stated Complaint: SOB, PAIN TO BILATERAL LE X 2 DAYS Time Seen by MD: 19:12 History of Present Illness Initial Comments Mr Pandey is a 63-year-old male significant past medical history of heart failure, medical noncompliance, essential hypertension, comes in today with a multiple day history of shortness of breath. Patient has been picked up by EMS after he was having complaints of shortness of breath. Patient is in extremis and is unable to give much history. Patient states his heart hurts Allergies: Coded Allergies: No Known Allergies (Verified Allergy, Unknown, 10/25/19) Home Meds Active Scripts Furosemide (Furosemide) 40 Mg Tablet, 40 MG PO DAILY, #30 TAB 3 Refills Prov:LANETTE MCLEAN MD 07/29/24 Spironolactone (Spironolactone) 25 Mg Tablet, 25 MG PO DAILY, #30 TAB 3 Refills Prov:LANETTE MCLEAN MD 07/29/24 Metoprolol Succinate (Toprol Xl) 25 Mg Tab.er.24h, 25 MG PO DAILY, #30 TAB 3 Refills Prov:LANETTE MCLEAN MD 07/29/24 Losartan Potassium (Cozaar) 25 Mg Tablet, 25 MG PO DAILY20, #30 TAB 3 Refills Prov:LANETTE MCLEAN MD 07/29/24 Nitroglycerin (Nitroglycerin) 0.4 Mg Tab.subl, 0.4 MG SL [id number] PRN for chest pain, #30 TAB.SL 1 Refill Prov:MARY LU MD 11/28/23 Aspirin (ASPIRIN 81 MG ECTAB) 81 Mg Ectab, 81 MG PO DAILY for 30 Days, #30 TAB.EC 2 Refills Prov:MARY LU MD 11/28/23 Atorvastatin Calcium (Atorvastatin Calcium) 40 Mg Tablet, 40 MG PO HS for 30 Days, #90 TAB 3 Refills Prov:MARY LU MD 11/28/23 Past Medical History Past Medical History: CHF, CVA, Diabetes-Type II, High Cholesterol, Heart Disease, Hypertension, [place] Medical History Other: CHRONIC BACK PAIN, PTSD, CARDIOMYOPATHY Past Surgical History: Other Surgical History Other: BACK;LEFT SHOULDER Family History Family History: CAD, DM, HTN Social History Social History: Smokers, Drugs, Other ROS Dictation Twelve point review of systems can not be done given patient's tachypnea Physical Exam Physical Exam Dictation General: Tachypneic Head/Face: Normocephalic, atraumatic Eyes: PERRL, EOMI, vision at baseline ENT: oral cavity clear Neck: Trachea midline, supple Cardiovascular: RRR, normal S1/S2, Respiratory: Crackles bilaterally in the lower lung chu Abdomen: Distended abdomen Skin: Warm, dry, normal turgor, no rash MS/Extremity: 3+ edema bilaterally in the lower extremities Neuro: COAx4 Results Laboratory and Microbiology Lab and Micro Result Laboratory Tests Test 08/21/24 19:25 08/21/24 19:50 08/21/24 20:08 White Blood Count 8.6 K/uL (4.8-10.8) Red Blood Count 5.35 MIL/uL (4.50-6.20) Hemoglobin 13.4 g/dL (14.0-18.0) L Hematocrit 43.7 % (42-54) Mean Corpuscular Volume 81.7 fL (79-99) Mean Corpuscular Hemoglobin 25.0 pg (27.0-33.0) L Mean Corpuscular Hemoglobin Concent 30.7 g/dL (32.0-36.0) L Red Cell Distribution Width 19.9 % (11.0-15.5) H Platelet Count 202 K/uL (130-400) Mean Platelet Volume 10.2 fL (7.5-10.5) Immature Granulocyte % (Auto) 0.6 % (0-1) Neutrophils (%) (Auto) 89.8 % (40.0-77.0) H Lymphocytes (%) (Auto) 4.6 % (21.0-51.0) L Monocytes (%) (Auto) 4.9 % (3.0-13.0) Eosinophils (%) (Auto) 0.0 % (0.0-8.0) Basophils (%) (Auto) 0.1 % (0.0-5.0) Neutrophils # (Auto) 7.7 K/uL (1.8-7.7) Lymphocytes # (Auto) 0.4 K/uL (1.0-4.8) L Monocytes # (Auto) 0.4 K/uL (0.1-1.0) Eosinophils # (Auto) 0.00 K/uL (0.00-0.70) Basophils # (Auto) 0.01 K/uL (0.00-0.20) Absolute Immature Granulocyte (auto 0.05 K/uL (0-1) Nucleated Red Blood Cells 0.0 % (0.0-0.19) White Cell Morphology Comment See comments Red Blood Cell Morphology ANISO 1+ Sodium Level 144 mmol/L (136-145) Potassium Level 5.5 mmol/L (3.5-5.1) H Chloride Level 110 mmol/L (101-111) Carbon Dioxide Level 23 mmol/L (21-32) Blood Urea Nitrogen 44 mg/dL (7-18) H Creatinine 2.0 mg/dL (0.5-1.3) H Glomerular Filtration Rate Calc 37 mL/min (>90) Random Glucose 137 mg/dL (70-105) H Total Calcium 9.1 mg/dL (8.5-10.1) B-Type Natriuretic Peptide 2990 pg/mL (0-100) H Influenza Type A Antigen Negative For Type A Influenza Type B Antigen Negative For Type B SARS-CoV-2, RNA, NAAT NEGATIVE SARS CoV-2 Urine Opiates Screen NEGATIVE (NEGATIVE) Urine Barbiturates Screen NEGATIVE (NEGATIVE) Urine Phencyclidine Screen NEGATIVE (NEGATIVE) Urine Amphetamines Screen NEGATIVE (NEGATIVE) Urine Benzodiazepines Screen NEGATIVE (NEGATIVE) Urine Cocaine Screen POSITIVE (NEGATIVE) H Urine Marijuana (THC) Screen POSITIVE (NEGATIVE) H MDM Patient comes in with worsening volume overload. BNP is 2900. Patient appears to be in heart failure. Patient was also positive for cocaine and marijuana. MDM: Differential diagnosis: Acute CHF Rationale: Tests considered and ordered secondary to shared decision making include: labs, ECG and radiology Previous outside records reviewed: Old ER visits. Risk of complication and/or morbidity or mortality of patient management: None Medications-Per medication reconciliation Need for hospitalization: Patient does meet criteria for hospitalization. Need for emergency major/minor surgery: No There are no social concerns with this patient. Prescription drug management Prescriptions will include symptomatic care Patient's prior external medical records from other ER visits were reviewed by me as indicated. Prior testing and results from previous visits were reviewed. Prior tests were taken into account with medical decision making and resource utilization, independent historian/historians were used to obtain complete medical history. I independently interpreted the test that were performed, results were reviewed by me and considered findings on radiology if ordered. Medical management and examination interpretation discussions were had by me with other qualified healthcare professionals as indicated for the patient's care. ED Course Orders Procedure Category Date Status Time Cbc With Differential LAB 08/21/24 Complete 19:15 B-Type Natriuretic LAB 08/21/24 Complete Peptide 19:15 Chest 1vw RAD 08/21/24 Resulted 19:15 12 Lead Ekg Tracing- EKG 08/21/24 Logged Technical 19:15 Albuterol 0.083% PHA 08/21/24 Complete 2.5mg/3ml (Proventil 19:30 Ipratropium/Albuterol PHA 08/21/24 Complete Neb (Duoneb) 19:30 Furosemide 40mg Vial PHA 08/21/24 Complete (Lasix 40mg Vial) 19:30 Basic Metabolic Panel LAB 08/21/24 Complete 19:15 Drug Screen Urine LAB 08/21/24 Complete 19:29 Influenza Type A & B, LAB 08/21/24 Complete Rapid 19:38 Covid Rna Naat LAB 08/21/24 Complete 19:38 Acetaminophen 325 Tab PHA 08/21/24 Complete (Tylenol 325mg Tab 20:30 Furosemide 20mg Vial PHA 08/21/24 Complete (Lasix 20mg Vial) 21:00 Sodium Zirconium PHA 08/21/24 Complete Cyclosilicate 21:00 Albuterol 0.083% PHA 08/21/24 Complete 2.5mg/3ml (Proventil 21:00 Dextrose 50%-Water PHA 08/21/24 Complete (D50w) 21:00 Insulin Lispro 100 PHA 08/21/24 Complete Unit/Ml 3ml (Humalog 21:00 Current Medications Medications (Trade) Dose Ordered Sig/Mindy Route PRN Reason Start Time Stop Time Status Last Admin Dose Admin Acetaminophen (TYLenol 325MG TAB) 650 mg ONCE ONCE PO 08/21/24 20:30 08/21/24 20:31 DC 08/21/24 20:09 Albuterol (DUOneb) 1 udvial ONCE ONCE IH 08/21/24 19:30 08/21/24 19:31 DC 08/21/24 20:07 Albuterol Sulfate (Proventil 0.083% 2.5mg/3ml) 2.5 mg ONCE ONCE IH 08/21/24 19:30 08/21/24 19:54 DC Albuterol Sulfate (Proventil 0.083% 2.5mg/3ml) 10 mg ONCE ONCE IH 08/21/24 21:00 08/21/24 21:01 DC 08/21/24 21:04 Dextrose (D50w) 50 ml ONCE ONCE IV 08/21/24 21:00 08/21/24 21:01 DC 08/21/24 20:56 Furosemide (LASix 20MG VIAL) 20 mg ONCE ONCE IV 08/21/24 21:00 08/21/24 21:01 DC 08/21/24 20:56 Furosemide (LASix 40MG VIAL) 40 mg ONCE ONCE IVP 08/21/24 19:30 08/21/24 19:31 DC 08/21/24 19:52 Insulin Human Lispro (HumaLOG LISpro 100 UNIT/ML 3ML) 10 unit ONCE ONCE SQ 08/21/24 21:00 08/21/24 21:01 DC 08/21/24 20:59 Sodium Zirconium Cyclosilicate (Lokelma) 10 gm ONCE ONCE PO 08/21/24 21:00 08/21/24 21:01 DC 08/21/24 20:56 Vital Signs Date Time Temp Pulse Resp B/P (MAP) Pulse Ox O2 Delivery O2 Flow Rate FiO2 08/21/24 20:07 66 20 08/21/24 19:16 66 20 132/94 96 Room Air 0 08/21/24 19:09 66 20 132/94 96 Room Air* 0 21 DX & DISP Disposition: Inpatient Departure Impression: Primary Impression: Acute congestive heart failure Additional Impression: Polysubstance abuse Condition: Stable Referrals: KEHINDE BOOKER (PCP) YESENIA CARTER MD Aug 21, 2024 19:39
[2024-08-21 19:45] LABS: POTASSIUM 5.5 mmol/L (3.5-5.1)
[2024-08-21] MEDS: furoSEMIDE 40MG VIAL IVP ONE (19:52)
[2024-08-21 20:07] VITALS: PULSE 66; RESP 20
[2024-08-21] MEDS: IpraTROPium/alBUTERol SULFATE 3 ML SOLUTION IH ONE (20:07)
[2024-08-21] MEDS: acetaMINOPHEN 325 MG TAB PO ONE (20:09)
[2024-08-21 20:10] LABS: SARS-CoV-2, RNA, NAAT NEGATIVE SARS CoV-2 (NEGATIVE)
[2024-08-21 20:13] LABS: INFLUENZA TYPE A Negative For Type A (NEGATIVE); INFLUENZA TYPE B Negative For Type B (NEGATIVE)
[2024-08-21 20:16] LABS: B-TYPE NATRIURETIC PEPTIDE 2990 pg/mL (0-100)
--- NOTE | 2024-08-21 20:16 | HMCIMG ---
CHEST 1VW CLINICAL HISTORY: Dyspnea/SOB COMPARISON: 07/24/2024 TECHNIQUE: Single view of the chest was obtained. FINDINGS: Lungs are clear. Cardiac size is mildly enlarged and stable. There is no acute bony abnormality. IMPRESSION: Mild cardiomegaly
[2024-08-21 20:22] LABS: AMPHET/METH SCREEN,URINE NEGATIVE (NEGATIVE); BARBITURATE SCREEN, URINE NEGATIVE (NEGATIVE); BENZODIAZEPINES SCREEN,URINE NEGATIVE (NEGATIVE); CANNABINOID SCREEN,URINE POSITIVE (NEGATIVE); COCAINE SCREEN,URINE POSITIVE (NEGATIVE); OPIATE SCREEN,URINE NEGATIVE (NEGATIVE); PHENCYCLIDINE SCREEN,URINE NEGATIVE (NEGATIVE)
[2024-08-21] MEDS: DEXTROSE 50%-WATER 50 ML DISP.SYRIN IV ONE (20:56)
[2024-08-21] MEDS: furoSEMIDE 20MG VIAL IV ONE (20:56)
[2024-08-21] MEDS: SODIUM ZIRCONIUM CYCLOSILICATE 5 GM POWD.PACK PO ONE (20:56)
[2024-08-21] MEDS: INSULIN LISpro 100 UNIT/ML 3ML SQ ONE (20:59)
[2024-08-21] MEDS: ALBUTEROL 0.083% 2.5 MG/3 ML INH IH ONE (21:04)
[2024-08-21 21:49] VITALS: PULSE 74; RESP 18
--- NOTE | 2024-08-21 22:05 | NUR ---
PATIENT REPORTS HE DOES NOT TAKE ANY MEDICATIONS
--- NOTE | 2024-08-21 22:06 | HP ---
[facility] HISTORY AND PHYSICAL Date of Service: Aug 21, 2024 Time of Service: 22:06 PCP: Self-referral HISTORY OF PRESENT ILLNESS: This is a 63-year-old male, homeless with past medical history of, chronic back pain, PTSD, cardiomyopathy ,CHF, medical noncompliance, polysubstance abuse, essential hypertension, diabetes and hyperlipidemia who was brought by EMS to the ED for complaints of shortness of breaths and fever which started three days ago. Patient states his both lower extremities are swollen patient was recently admitted here on July 24 2024 for chest pain and he was discharged home on July 29, 2024. Apparently according to the patient he has no access to healthcare because he has no money and he has not been taking his medication since discharge. Patient states he just live on the street and he can barely walk and a friend of his had to call the ambulance for him. Patient admits to smoking two cigarettes per day, using marijuana and cocaine last use was two days ago denies alcohol consumption. Seen and examined patient in the ER awake alert and coherent, appears short of breath bilateral lower extremities are swollen. Patient denies chest pain, palpitation, nausea, vomiting, abdominal pain and diarrhea. Vital signs heart rate 78, blood pressure 145/95 saturation 100% on room air. Labs: WBC 8.6, hemoglobin 13.4, hematocrit 43.7, platelet count 202. BNP 2990. Potassium 5.5, BUN 44, creatinine 2.0, GFR 37 and glucose 137. Urine toxicology positive with marijuana and cocaine. Influenza a and B negative SARs COVID negative. Twelve lead EKG not available at this time. Chest x-ray result revealed mild cardiomegaly. While in the ER patient was given insulin 10 units subQ, D50 IV, albuterol 10 mg inhalation, Lokelma 10 g, IV Lasix 60 mg, Tylenol 650 mg p.o. we will admit patient for further medical management. REVIEW OF SYSTEMS CONSTITUTIONAL: Complains of fever and chills Deniesnight sweats. No unintentional weight loss reported. NEUROLOGICAL: Denies headache, amaurosis fugax, motor weakness, sensory deficit, vertigo/spinning sensation, gait abnormalities, or tremors. ENT: No hearing loss, otalgia, otorrhea, rhinitis, rhinorrhea, hoarseness, or sore throat. CARDIOVASCULAR: Denies any exertional angina, dyspnea on exertion, orthopnea, paroxysmal nocturnal dyspnea, palpitations, life-threatening arrhythmias, claudication. PULMONARY: Complaints of shortness of breaths Denies phlegm/sputum, hemoptysis, pleuritic chest pain. SLEEP: Denies morning headaches, daytime somnolence or napping. Denies difficulty falling asleep, staying asleep, waking from sleep. Denies knowledge of snoring. GASTROINTESTINAL: Denies any type of dysphagia to either liquids or solids. Denies nausea, vomiting, pyrosis, early satiety, abdominal pain, diarrhea, constipation, or changes in stool consistency or caliber. Denies coffee-ground emesis, hematemesis, hematochezia, or melanotic stools. GENITOURINARY: Denies frequency, urgency, nocturia, hematuria or incontinence (Storage/Irritative symptoms.) Low urinary stream, straining to void, urinary intermittency or hesitancy, splitting of the voiding stream, terminal dribbling. ENDOCRINOLOGIC: Denies polyuria, polydipsia, polyphagia or heat/cold intolerances. HEMATOLOGIC: Denies thrombophilia/previous clots, or coagulopathy/bleeding disorders. ONCOLOGIC: Denies personal history of malignancy. DERMATOLOGIC: Denies rashes or pruritus. PSYCHIATRIC: Denies any suicidal or homicidal ideation. Denies hallucinations. PAST MEDICAL HISTORY: [ Chronic back pain, PTSD, cardiomyopathy, Polysubstance abuse, medical noncompliance, CHF, hypertension, diabetes and hyperlipidemia ] PAST SURGICAL HISTORY: [ Back surgery and left shoulder surgery ] PAST SOCIAL HISTORY: [Patient is homeless. Patient denies alcohol use. Admits to smoking two cigarettes per day and using marijuana and cocaine last use two days ago ] FAMILY HISTORY: [ None contributory ] Coded Allergies: No Known Allergies (Verified Allergy, Unknown, 10/25/19) PHYSICAL EXAM GENERAL APPEARANCE: The patient is awake, alert, and oriented, in no acute cardiopulmonary distress. NEUROLOGICAL: Cranial nerves II-XII grossly intact. Motor is 5/5 in bilateral upper and lower extremities proximal to distal. No sensory deficits. HEENT: Face is symmetric. Pupils are equal and reactive. Extraocular movements are intact. NECK: Supple. No JVD. No thyromegaly. No submental, submandibular, pre- /postauricular, occipital or supraclavicular lymphadenopathy. CHEST: Normal chest expansion. No Telemetry. LUNGS: Absence of any rales, rhonchi or any wheezing. CARDIOVASCULAR: Regular. S1 and S2 normal. No appreciable rubs, murmurs or gallops. ABDOMEN: Soft, nontender, and nondistended. There is no rebound, voluntary guarding, or rigidity. : Deferred. No So. EXTREMITIES: But bilateral lower extremity swelling SKIN: No skin breakdown. Vital Sign (Last 24 Hours) 08/21/24 08/21/24 08/21/24 19:09 19:16 20:07 Pulse 66 Resp 20 B/P (MAP) 132/94 Pulse Ox 96 O2 Delivery Room Air O2 Flow Rate 0 FiO2 21 LABS: Laboratory: Test 08/21/24 20:08 08/21/24 19:50 08/21/24 19:25 Range/Units Urine Opiates Screen NEGATIVE NEGATIVE Urine Barbiturates Screen NEGATIVE NEGATIVE Urine Phencyclidine Screen NEGATIVE NEGATIVE Urine Amphetamines Screen NEGATIVE NEGATIVE Urine Benzodiazepines Screen NEGATIVE NEGATIVE Urine Cocaine Screen POSITIVE H NEGATIVE Urine Marijuana (THC) Screen POSITIVE H NEGATIVE Influenza Type A Antigen Negative For Type A NEGATIVE Influenza Type B Antigen Negative For Type B NEGATIVE SARS-CoV-2, RNA, NAAT NEGATIVE SARS CoV-2 NEGATIVE White Blood Count 8.6 4.8-10.8 K/uL Red Blood Count 5.35 4.50-6.20 MIL/uL Hemoglobin 13.4 L 14.0-18.0 g/dL Hematocrit 43.7 42-54 % Mean Corpuscular Volume 81.7 79-99 fL Mean Corpuscular Hemoglobin 25.0 L 27.0-33.0 pg Mean Corpuscular Hemoglobin Concent 30.7 L 32.0-36.0 g/dL Red Cell Distribution Width 19.9 H 11.0-15.5 % Platelet Count 202 130-400 K/uL Mean Platelet Volume 10.2 7.5-10.5 fL Immature Granulocyte % (Auto) 0.6 0-1 % Neutrophils (%) (Auto) 89.8 H 40.0-77.0 % Lymphocytes (%) (Auto) 4.6 L 21.0-51.0 % Monocytes (%) (Auto) 4.9 3.0-13.0 % Eosinophils (%) (Auto) 0.0 0.0-8.0 % Basophils (%) (Auto) 0.1 0.0-5.0 % Neutrophils # (Auto) 7.7 1.8-7.7 K/uL Lymphocytes # (Auto) 0.4 L 1.0-4.8 K/uL Monocytes # (Auto) 0.4 0.1-1.0 K/uL Eosinophils # (Auto) 0.00 0.00-0.70 K/uL Basophils # (Auto) 0.01 0.00-0.20 K/uL Absolute Immature Granulocyte (auto 0.05 0-1 K/uL Nucleated Red Blood Cells 0.0 0.0-0.19 % White Cell Morphology Comment See comments Red Blood Cell Morphology ANISO 1+ Sodium Level 144 136-145 mmol/L Potassium Level 5.5 H 3.5-5.1 mmol/L Chloride Level 110 101-111 mmol/L Carbon Dioxide Level 23 21-32 mmol/L Blood Urea Nitrogen 44 H 7-18 mg/dL Creatinine 2.0 H 0.5-1.3 mg/dL Glomerular Filtration Rate Calc 37 >90 mL/min Random Glucose 137 H 70-105 mg/dL Total Calcium 9.1 8.5-10.1 mg/dL B-Type Natriuretic Peptide 2990 H 0-100 pg/mL DIAGNOSTICS / RADIOLOGY: [ ] ASSESSMENT: Acute on chronic combined systolic and diastolic heart failure with cardiomyopathy POA Acute on chronic renal insufficiency POA Hyperkalemia POA Diabetes POA Hypertension POA Hyperlipidemia POA Polysubstance abuse POA Nicotine dependence POA Medical noncompliance POA Homelessness POA PLAN: We will admit patient in medical telemetry We will start on heart healthy and consistent carb diet We will start on Lasix 20 mg IV b.i.d. We will start on Famotidine 20 mg p.o. q.48h for GI prophylaxis We will start on insulin sliding scale AC & HS with hypoglycemia protocol We will add prn medication for fever,pain,cough, nausea and vomiting We will reconcile home meds once medlist available We will request daily weight and strict I&O Fluid restriction 1.5 L per day Use oxygen supplementation to keep saturation above 92% We will seek Cardiology consultation We will request case management and social Service(frequent admission and no access to medication ) Dietary consultation for malnutrition and education for CHF diet We will request labs in am Further orders to follow depending on above results Case discussed with attending physician and came up with above treatment and plan of care. ADVANCED CARE PLANNING 1. Which of the following were discussed? Hospice Care - No Therapeutic options - Yes Advance Directives - No Other discussions - 2. Discussed with who? Patient 3. Voluntary nature of this service was explained to the patient? Yes 4. Amount of time spent - ____22___ 5. Reviewed by Physician? (if this service was performed by NPP) Yes Patient seen and examined by me. Agree with note by LABORATORY HELPER SEE ADDITIONAL ORDERS PER CHART DISCUSSED WITH NURSING STAFF PAUL BELLO PHONE SCREENER Aug 21, 2024 22:06
[2024-08-21] MEDS ORDERED: hydrALAZine 20MG/ML VIAL IV PRN (22:30)
[2024-08-21] MEDS ORDERED: DEXTROSE 50%-WATER 50 ML DISP.SYRIN IV PRN (22:30)
[2024-08-21] MEDS ORDERED: acetaMINOPHEN 325 MG TAB PO PRN ×2 (22:30)
[2024-08-21] MEDS ORDERED: GLUCAGON 1MG KIT 1 MG ML IM PRN (22:30)
[2024-08-21] MEDS ORDERED: guaiFENesin-DM 200/20MG 10ML PO PRN (22:30)
[2024-08-21] MEDS ORDERED: ondanSETRON 4MG INJ IV PRN (22:30)
[2024-08-21] MEDS ORDERED: MAGNESIUM 2GM PREMIX 50ML 50 ML IV PRN (22:30)
[2024-08-21] MEDS ORDERED: PoTASSium chloRIDE 10MEQ/100ML 100 ML IV PRN (22:30)
[2024-08-21 23:10] VITALS: O2SAT 100
--- NOTE | 2024-08-21 23:10 | NUR ---
arrival report received from farideh christine. According to him, the wildlife photographer should be consulted in the morning of 08/22/24. patient alert and oriented times 4. plan of care discussed with him and he verbalized understanding. patient has no home medications because he is homeless and cannot buy his medications. patient is noncompliant and has been calling constantly for food including sandwich, juice, banana pudding. We gave him 1 banana pudding and crackers. I explained that he is on a fluid restriction per the hospitalist due to his condition. He begs, "please be considerate ma'm. Please have some heart." I apologized for not being able to give him more snacks and said we were following doctor's orders. The patient kept calling and trying to get out of bed. Pictures taken of his feet and wet to dry dressing applied to his wounds. He has slept about 2 hours in total tonight. Call light within reach, bed alarm on, 2 side rails up. will continue to monitor patient.
[2024-08-22] VITALS (7 sets, daily range): BP systolic 103–136; BP diastolic 71–93; PULSE 75–80; RESP 18–21; TEMP 97.7–98.3; O2SAT 98–100
[2024-08-22 03:49] LABS: BASOPHILS # (AUTO) 0.01 K/uL (0.00-0.20); BASOPHILS % (AUTO) 0.1 % (0.0-5.0); HEMATOCRIT 36.6 % (42-54); IMMATURE GRANULOCYTE ABSOLUTE 0.03 K/uL (0-1); LYMPHOCYTES # (AUTO) 0.4 K/uL (1.0-4.8); LYMPHOCYTES % (AUTO) 4.4 % (21.0-51.0); MEAN CORPUSCULAR HEMOGLOBIN 24.6 pg (27.0-33.0); MEAN CORPUSCULAR HGB CONC 30.3 g/dL (32.0-36.0); MEAN CORPUSCULAR VOLUME 81.2 fL (79-99); MONOCYTES # (AUTO) 0.6 K/uL (0.1-1.0); MONOCYTES % (AUTO) 6.7 % (3.0-13.0); NEUTROPHILS % (AUTO) 88.5 % (40.0-77.0); PLATELET COUNT (AUTO) 153 K/uL (130-400); RED BLOOD CELL COUNT(AUTO) 4.51 MIL/uL (4.50-6.20); RED CELL DISTRIBUTION WIDTH 19.4 % (11.0-15.5); WHITE BLOOD COUNT (AUTO) 9.1 K/uL (4.8-10.8)
[2024-08-22 04:05] LABS: ALBUMIN 2.6 g/dL (3.5-5.0); CREATININE 1.9 mg/dL (0.5-1.3); MAGNESIUM 2.2 mg/dL (1.80-2.40); POTASSIUM 4.1 mmol/L (3.5-5.1); TOTAL PROTEIN, SERUM 5.7 g/dL (6.0-8.3)
[2024-08-22 04:10] LABS: B-TYPE NATRIURETIC PEPTIDE 2730 pg/mL (0-100)
[2024-08-22] MEDS: INSULIN humuLIN R 100 UNIT/ML 3ML SQ SCH (05:04)
[2024-08-22] MEDS: furoSEMIDE 20MG VIAL IV SCH (08:20)
[2024-08-22] MEDS: FAMOTIDINE 20MG TAB PO SCH (08:20)
[2024-08-22] MEDS: HYDROcodone/APAP 5/325 1 TAB TABLET PO PRN (09:07)
--- NOTE | 2024-08-22 09:50 | NUR ---
DR. SANDERS HERE AND WAS ADVISED OF CONSULT AND WILL SEE PT.
--- NOTE | 2024-08-22 11:25 | CONS ---
Polysubstance abuser who presented with cocaine and marijuana positive has a severe cardiomyopathy with recurrent admissions for heart failure. Present admission is bilateral lower extremity pain and swelling all but his chest x-ray is clear. His BNP was 2900 and is still 2700 but chest x-ray is clear (though with cardiomegaly) and the patient is responding to diuretics. Again tested positive for cocaine and marijuana, states he does not buy it but uses it. Noncompliant/nonadherent with medications as an outpatient. Has not been taking any of his medications. In the past because of his inability to afford medication and his unreliability in taking medications, efforts have been made to simply control volume through diuresis to relieve symptoms. Now he presents with the parent peripheral vascular disease or some other type of infection in his feet popliteal pulses are barely palpable and feet are bandaged all but toes are red and appear ischemic/swollen bilaterally. Currently the patient does not have leukocytosis. His creatinine is 1.9. ROS is negative for syncope or presyncope, chest pain or dyspnea, orthopnea or paroxysmal nocturnal dyspnea, or diaphoresis. He denies fevers or chills. He denies abdominal pain or nausea or vomiting. He presents primarily with pain in both lower extremities that prevents him from ambulating. Physical exam shows a thin, frail patient with poor dentition with no JVD, fair carotid volume, no rales or rhonchi, nonlabored respiration, diffuse PMI, diminished S1 and S2, no murmur, regular rhythm, normal bowel sounds, scaphoid abdomen, all faintly palpable popliteal pulses, edematous feet with sausage like digits that appear red and ischemic. Impression: I am not sure what we can do to help this patient. Antibiotic therapy and diuresis are warranted, and in the interest of providing low-cost heart failure treatment I will give metoprolol succinate, low-dose lisinopril, and Jardiance 10 mg. We will observe fall renal indices on these medications. With respect to lower extremities, honestly he would not be a candidate for any form of catheter based intervention because he will not be able to or reliable enough to take appropriate medications after a procedure. I think it may still be warranted to perform limited vascular evaluation so we can understand the nature of the problem. Plan: I have added metoprolol [id number] mg p.o. q.a.m., lisinopril 2.5 mg p.o. q.a.m., and Jardiance 10 mg daily to his current regimen. I doubt he would be able to afford Jardiance as an outpatient. I will order lower extremity arterial Dopplers and we can see what mental health social worker might be able to provide in terms of assistance. Patient History: Sudden MOTHER FATHER Unknown MOTHER FATHER Vitals/Labs Vital Signs Date Time Temp Pulse Resp B/P (MAP) Pulse Ox O2 Delivery O2 Flow Rate FiO2 08/22/24 08:00 97.9 80 20 123/79 100 Room Air 08/22/24 04:00 21 08/21/24 23:10 0 Laboratory Tests 08/21/24 19:25 08/22/24 03:15 Allergies: Coded Allergies: No Known Allergies (Verified Allergy, Unknown, 10/25/19) Medications Current Medications Albuterol Sulfate 2.5 mg ONCE ONCE IH; Start 08/21/24 at 19:30; Stop 08/21/24 at 19:54; Status DC Albuterol 1 udvial ONCE ONCE IH Last administered on 08/21/24at 20:07; Start 08/21/24 at 19:30; Stop 08/21/24 at 19:31; Status DC Furosemide 40 mg ONCE ONCE IVP Last administered on 08/21/24at 19:52; Start 08/21/24 at 19:30; Stop 08/21/24 at 19:31; Status DC Acetaminophen 650 mg ONCE ONCE PO Last administered on 08/21/24at 20:09; Start 08/21/24 at 20:30; Stop 08/21/24 at 20:31; Status DC Furosemide 20 mg ONCE ONCE IV Last administered on 08/21/24at 20:56; Start 08/21/24 at 21:00; Stop 08/21/24 at 21:01; Status DC Sodium Zirconium Cyclosilicate 10 gm ONCE ONCE PO Last administered on 08/21/24at 20:56; Start 08/21/24 at 21:00; Stop 08/21/24 at 21:01; Status DC Albuterol Sulfate 10 mg ONCE ONCE IH Last administered on 08/21/24at 21:04; Start 08/21/24 at 21:00; Stop 08/21/24 at 21:01; Status DC Dextrose 50 ml ONCE ONCE IV Last administered on 08/21/24at 20:56; Start 08/21/24 at 21:00; Stop 08/21/24 at 21:01; Status DC Insulin Human Lispro 10 unit ONCE ONCE SQ Last administered on 08/21/24at 20:59; Start 08/21/24 at 21:00; Stop 08/21/24 at 21:01; Status DC Acetaminophen 650 mg Q6H PRN PO; Start 08/21/24 at 22:30; Stop 09/20/24 at 22:29 Acetaminophen 650 mg Q4H PRN PO; Start 08/21/24 at 22:30; Stop 09/20/24 at 22:29 Ondansetron HCl 4 mg Q6H PRN IV; Start 08/21/24 at 22:30; Stop 09/20/24 at 22:29 Guaifenesin/ Dextromethorphan 10 ml Q4H PRN PO; Start 08/21/24 at 22:30; Stop 09/20/24 at 22:29 Famotidine 20 mg Q48H PO Last administered on 08/22/24at 08:20; Start 08/22/24 at 09:00; Stop 09/21/24 at 08:59 Acetaminophen/ Hydrocodone Bitart 1 tab Q4H PRN PO Last administered on 08/22/24at 09:07; Start 08/21/24 at 22:30; Stop 08/26/24 at 22:29 Furosemide 20 mg BID IV Last administered on 08/22/24at 08:20; Start 08/22/24 at 09:00; Stop 09/21/24 at 08:59 Hydralazine HCl 10 mg Q6H PRN IV; Start 08/21/24 at 22:30; Stop 08/22/24 at 11:09; Status DC Insulin Human Regular INSULIN SLIDING SCAL... ACHS SQ; Start 08/22/24 at 07:30; Stop 09/21/24 at 07:29 Dextrose 50 ml AD PRN IV; Start 08/21/24 at 22:30; Stop 09/20/24 at 22:29 Glucagon 1 mg AD PRN IM; Start 08/21/24 at 22:30; Stop 09/20/24 at 22:29 Magnesium Sulfate 50 ml @ 0 mls/hr PROTOCOL PRN IV; Start 08/21/24 at 22:30; Stop 09/20/24 at 22:29 Potassium Chloride 100 ml @ 100 mls/hr AD PRN IV; Start 08/21/24 at 22:30; Stop 09/20/24 at 22:29 Lisinopril 2.5 mg DAILY PO; Start 08/23/24 at 09:00; Stop 09/22/24 at 08:59; Status UNV Metoprolol Succinate 25 mg DAILY PO; Start 08/23/24 at 09:00; Stop 09/22/24 at 08:59; Status UNV Empaglifozin 10 mg DAILY PO; Start 08/23/24 at 09:00; Stop 09/22/24 at 08:59; Status UNV NYDIA SANDERS MD Aug 22, 2024 11:25
--- NOTE | 2024-08-22 13:41 | PN ---
[facility] PROGRESS NOTE Date of Service: Aug 22, 2024 Time of Service: 13:40 SUBJECTIVE: [ ] 08/22/24 patient was seen and examined. Case discussed with RN. He is wanting increased for portions. We will continue to try and improve his activity. Can continue IV diuresis. Monitor weight and urine output REVIEW OF SYSTEMS CONSTITUTIONAL: Complains of fever and chills Deniesnight sweats. No unintentional weight loss reported. NEUROLOGICAL: Denies headache, amaurosis fugax, motor weakness, sensory deficit, vertigo/spinning sensation, gait abnormalities, or tremors. ENT: No hearing loss, otalgia, otorrhea, rhinitis, rhinorrhea, hoarseness, or sore throat. CARDIOVASCULAR: Denies any exertional angina, dyspnea on exertion, orthopnea, paroxysmal nocturnal dyspnea, palpitations, life-threatening arrhythmias, claudication. PULMONARY: Complaints of shortness of breaths Denies phlegm/sputum, hemoptysis, pleuritic chest pain. SLEEP: Denies morning headaches, daytime somnolence or napping. Denies difficulty falling asleep, staying asleep, waking from sleep. Denies knowledge of snoring. GASTROINTESTINAL: Denies any type of dysphagia to either liquids or solids. Denies nausea, vomiting, pyrosis, early satiety, abdominal pain, diarrhea, constipation, or changes in stool consistency or caliber. Denies coffee-ground emesis, hematemesis, hematochezia, or melanotic stools. GENITOURINARY: Denies frequency, urgency, nocturia, hematuria or incontinence (Storage/Irritative symptoms.) Low urinary stream, straining to void, urinary intermittency or hesitancy, splitting of the voiding stream, terminal dribbling. ENDOCRINOLOGIC: Denies polyuria, polydipsia, polyphagia or heat/cold intolerances. HEMATOLOGIC: Denies thrombophilia/previous clots, or coagulopathy/bleeding disorders. ONCOLOGIC: Denies personal history of malignancy. DERMATOLOGIC: Denies rashes or pruritus. PSYCHIATRIC: Denies any suicidal or homicidal ideation. Denies hallucinations. PHYSICAL EXAM GENERAL APPEARANCE: The patient is awake, alert, and oriented, in no acute cardiopulmonary distress. NEUROLOGICAL: Cranial nerves II-XII grossly intact. Motor is 5/5 in bilateral upper and lower extremities proximal to distal. No sensory deficits. HEENT: Face is symmetric. Pupils are equal and reactive. Extraocular movements are intact. NECK: Supple. No JVD. No thyromegaly. No submental, submandibular, pre- /postauricular, occipital or supraclavicular lymphadenopathy. CHEST: Normal chest expansion. No Telemetry. LUNGS: Absence of any rales, rhonchi or any wheezing. CARDIOVASCULAR: Regular. S1 and S2 normal. No appreciable rubs, murmurs or gallops. ABDOMEN: Soft, nontender, and nondistended. There is no rebound, voluntary guarding, or rigidity. : Deferred. No So. EXTREMITIES: But bilateral lower extremity swelling SKIN: No skin breakdown. Vital Signs (last 8hr) Date Time Temp Pulse Resp B/P (MAP) Pulse Ox O2 Delivery O2 Flow Rate FiO2 08/22/24 12:00 98.1 75 20 128/86 98 Room Air 08/22/24 08:00 97.9 80 20 123/79 100 Room Air LABS: Laboratory: Test 08/22/24 10:38 08/22/24 03:15 08/21/24 20:08 08/21/24 19:50 Range/Units Whole Blood Glucose 193 #H 70-110 MG/DL White Blood Count 9.1 4.8-10.8 K/uL Red Blood Count 4.51 4.50-6.20 MIL/uL Hemoglobin 11.1 L 14.0-18.0 g/dL Hematocrit 36.6 L 42-54 % Mean Corpuscular Volume 81.2 79-99 fL Mean Corpuscular Hemoglobin 24.6 L 27.0-33.0 pg Mean Corpuscular Hemoglobin Concent 30.3 L 32.0-36.0 g/dL Red Cell Distribution Width 19.4 H 11.0-15.5 % Platelet Count 153 130-400 K/uL Mean Platelet Volume 10.2 7.5-10.5 fL Immature Granulocyte % (Auto) 0.3 0-1 % Neutrophils (%) (Auto) 88.5 H 40.0-77.0 % Lymphocytes (%) (Auto) 4.4 L 21.0-51.0 % Monocytes (%) (Auto) 6.7 3.0-13.0 % Eosinophils (%) (Auto) 0.0 0.0-8.0 % Basophils (%) (Auto) 0.1 0.0-5.0 % Neutrophils # (Auto) 8.0 H 1.8-7.7 K/uL Lymphocytes # (Auto) 0.4 L 1.0-4.8 K/uL Monocytes # (Auto) 0.6 0.1-1.0 K/uL Eosinophils # (Auto) 0.00 0.00-0.70 K/uL Basophils # (Auto) 0.01 0.00-0.20 K/uL Absolute Immature Granulocyte (auto 0.03 0-1 K/uL Nucleated Red Blood Cells 0.0 0.0-0.19 % Sodium Level 145 136-145 mmol/L Potassium Level 4.1 3.5-5.1 mmol/L Chloride Level 112 H 101-111 mmol/L Carbon Dioxide Level 23 21-32 mmol/L Blood Urea Nitrogen 47 H 7-18 mg/dL Creatinine 1.9 H 0.5-1.3 mg/dL Glomerular Filtration Rate Calc 40 >90 mL/min Random Glucose 65 #L 70-105 mg/dL Total Calcium 8.6 8.5-10.1 mg/dL Magnesium Level 2.20 1.80-2.40 mg/dL Total Bilirubin 1.0 0.2-1.0 mg/dL Aspartate Amino Transf (AST/SGOT) 40 H 10-37 U/L Alanine Aminotransferase (ALT/SGPT) 36 12-78 U/L Alkaline Phosphatase 114 50-136 U/L B-Type Natriuretic Peptide 2730 H 0-100 pg/mL Total Protein 5.7 L 6.0-8.3 g/dL Albumin 2.6 L 3.5-5.0 g/dL Urine Opiates Screen NEGATIVE NEGATIVE Urine Barbiturates Screen NEGATIVE NEGATIVE Urine Phencyclidine Screen NEGATIVE NEGATIVE Urine Amphetamines Screen NEGATIVE NEGATIVE Urine Benzodiazepines Screen NEGATIVE NEGATIVE Urine Cocaine Screen POSITIVE H NEGATIVE Urine Marijuana (THC) Screen POSITIVE H NEGATIVE Influenza Type A Antigen Negative For Type A NEGATIVE Influenza Type B Antigen Negative For Type B NEGATIVE SARS-CoV-2, RNA, NAAT NEGATIVE SARS CoV-2 NEGATIVE Test 08/21/24 19:25 Range/Units White Cell Morphology Comment See comments Red Blood Cell Morphology ANISO 1+ Current Medications Medications (Trade) Dose Ordered Sig/Mindy Route PRN Reason Start Time Stop Time Status Last Admin Dose Admin Acetaminophen (TYLenol 325MG TAB) 650 mg Q4H PRN PO MILD PAIN (1-3) 08/21/24 22:30 09/20/24 22:29 Acetaminophen (TYLenol 325MG TAB) 650 mg Q6H PRN PO TEMPERATURE GREATER THAN 101.5 08/21/24 22:30 09/20/24 22:29 Acetaminophen/ Hydrocodone Bitart (NORco 5/325MG) 1 tab Q4H PRN PO MODERATE PAIN (4-6) 08/21/24 22:30 08/26/24 22:29 08/22/24 09:07 1 TAB Dextrose (D50w) 50 ml AD PRN IV HYPOGLYCEMIA PROTOCOL 08/21/24 22:30 09/20/24 22:29 Empaglifozin (Jardiance 10mg) 10 mg DAILY PO 08/23/24 09:00 09/22/24 08:59 Famotidine (Pepcid 20mg Tab) 20 mg Q48H PO 08/22/24 09:00 09/21/24 08:59 08/22/24 08:20 20 MG Furosemide (LASix 20MG VIAL) 20 mg BID IV 08/22/24 09:00 09/21/24 08:59 08/22/24 08:20 20 MG Glucagon (Glucagon 1mg Kit) 1 mg AD PRN IM HYPOGLYCEMIA PROTOCOL 08/21/24 22:30 09/20/24 22:29 Guaifenesin/ Dextromethorphan (RobiTUSSin DM 200/20MG 10ML) 10 ml Q4H PRN PO COUGH 08/21/24 22:30 09/20/24 22:29 Hydralazine HCl (APRESOLine 20MG INJ) 10 mg Q6H PRN IV For:SBP above 160;DBP above 90 08/21/24 22:30 08/22/24 11:09 DC Insulin Human Regular (humuLIN R 100 UNIT/ML 3ML) INSULIN SLIDING SCAL... 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 We will start on Famotidine 20 mg p.o. q.48h for GI prophylaxis We will start on insulin sliding scale AC & HS with hypoglycemia protocol We will add prn medication for fever,pain,cough, nausea and vomiting We will reconcile home meds once medlist available We will request daily weight and strict I&O Fluid restriction 1.5 L per day Use oxygen supplementation to keep saturation above 92% We will seek Cardiology consultation We will request case management and social Service(frequent admission and no access to medication ) Dietary consultation for malnutrition and education for CHF diet We will request labs in am Further orders to follow depending on above results Case discussed with attending physician and came up with above treatment and plan of care. SIOMARA BOB MD Aug 22, 2024 13:41
--- NOTE | 2024-08-22 17:22 | EKG ---
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
[2024-08-23] VITALS (8 sets, daily range): BP systolic 116–130; BP diastolic 73–87; PULSE 66–77; RESP 18–20; TEMP 97.5–98.2; O2SAT 97
[2024-08-23] MEDS: LISINOPRIL 2.5 MG TABLET PO SCH (08:54)
[2024-08-23] MEDS: EMPAGLIFLOZIN 10MG TABLET PO SCH (08:54)
[2024-08-23] MEDS: metOPROLol sucCINATE 25 MG TAB.SR.24H PO SCH (08:54)
--- NOTE | 2024-08-23 14:14 | NUR ---
Nutritional Note: Chart, meds, and labs Reviewed. Patient reported smoking two cigarettes per day, using marijuana and cocaine last use was two days ago denies alcohol consumption. Pt is wanting increased for portions. Current PO Intake 100% Recommend: -add 75gm CC modifier to diet order, pt with Hx of DM -Glucerna 1 can PRN. - Electrolyte replacements per protocol -Monitor PO intake%, wt, and labs, maintain or improve current wt. -If No BM >3days consider bowel stimulant. -Notify social director to address access to resources. Encourages use of public services. - Please notify RD if additional nutrition concerns arise. SEE RD Nutritional Assessment for additional assessment information. Addendum: 08/23/24 at [address] Amended: Links added.
--- NOTE | 2024-08-23 14:22 | NUR ---
Cleanse with normal saline, pat dry, apply anasept gel, cover with vaseline gauze/adaptic, gauze, wrap with kerlix, secure with tape change daily and prn
--- NOTE | 2024-08-23 15:36 | PN ---
[facility] PROGRESS NOTE Date of Service: Aug 23, 2024 Time of Service: 15:35 SUBJECTIVE: This is a 63-year-old male, homeless with past medical history of, chronic back pain, PTSD, cardiomyopathy ,CHF, medical noncompliance, polysubstance abuse, essential hypertension, diabetes and hyperlipidemia who was brought by EMS to the ED for complaints of shortness of breaths and fever which started three days ago. Patient states his both lower extremities are swollen patient was recently admitted here on July 24 2024 for chest pain and he was discharged home on July 29, 2024. Apparently according to the patient he has no access to healthcare because he has no money and he has not been taking his medication since discharge. Patient states he just live on the street and he can barely walk and a friend of his had to call the ambulance for him. Patient admits to smoking two cigarettes per day, using marijuana and cocaine last use was two days ago denies alcohol consumption. Seen and examined patient in the ER awake alert and coherent, appears short of breath bilateral lower extremities are swollen. Patient denies chest pain, palpitation, nausea, vomiting, abdominal pain and diarrhea. Vital signs heart rate 78, blood pressure 145/95 saturation 100% on room air. Labs: WBC 8.6, hemoglobin 13.4, hematocrit 43.7, platelet count 202. BNP 2990. Potassium 5.5, BUN 44, creatinine 2.0, GFR 37 and glucose 137. Urine toxicology positive with marijuana and cocaine. Influenza a and B negative SARs COVID negative. Twelve lead EKG not available at this time. Chest x-ray result revealed mild cardiomegaly. While in the ER patient was given insulin 10 units subQ, D50 IV, albuterol 10 mg inhalation, Lokelma 10 g, IV Lasix 60 mg, Tylenol 650 mg p.o. we will admit patient for further medical management. 08/22/24 patient was seen and examined. Case discussed with RN. He is wanting increased for portions. We will continue to try and improve his activity. Can continue IV diuresis. Monitor weight and urine output 08/23/24 The patient states improvement in his shortness of breaths. His hemoglobin is 11 low his hematocrit is low 36.6 and his chest x-ray reveals cardiac size mildly enlarged and lungs are clear and mild cardiomegaly is present and urine is positive for cocaine and marijuana and a serology is negative for influenza SARs COVID 19 and his whole blood glucose is increased at 180 his vital signs a re stable with a blood pressure of 1/1 6 x 80, O2 saturation of 100% on room air with FiO2 of 21%, respiratory rate is 18 and pulse is 74, temperature is 97.5 for he denies fever chills vomiting or chest discomfort. He is still complains of fatigue and abdominal discomfort. Intake is 975 mL and output is 975 mL and urine output total is 0.63 mL/kg per hour. REVIEW OF SYSTEMS CONSTITUTIONAL: Denies fever and chills Deniesnight sweats. No unintentional weight loss reported. NEUROLOGICAL: Denies headache, amaurosis fugax, motor weakness, sensory deficit, vertigo/spinning sensation, gait abnormalities, or tremors. ENT: No hearing loss, otalgia, otorrhea, rhinitis, rhinorrhea, hoarseness, or sore throat. CARDIOVASCULAR: Denies any exertional angina, dyspnea on exertion, orthopnea, paroxysmal nocturnal dyspnea, palpitations, life-threatening arrhythmias, claudication. PULMONARY: Complaints of shortness of breaths Denies phlegm/sputum, hemoptysis, pleuritic chest pain. SLEEP: Denies morning headaches, daytime somnolence or napping. Denies difficulty falling asleep, staying asleep, waking from sleep. Denies knowledge of snoring. GASTROINTESTINAL: Denies any type of dysphagia to either liquids or solids. Denies nausea, vomiting, pyrosis, early satiety, abdominal pain, diarrhea, constipation, or changes in stool consistency or caliber. Denies coffee-ground emesis, hematemesis, hematochezia, or melanotic stools. GENITOURINARY: Denies frequency, urgency, nocturia, hematuria or incontinence (Storage/Irritative symptoms.) Low urinary stream, straining to void, urinary intermittency or hesitancy, splitting of the voiding stream, terminal dribbling. ENDOCRINOLOGIC: Denies polyuria, polydipsia, polyphagia or heat/cold intolerances. HEMATOLOGIC: Denies thrombophilia/previous clots, or coagulopathy/bleeding disorders. ONCOLOGIC: Denies personal history of malignancy. DERMATOLOGIC: Denies rashes or pruritus. PSYCHIATRIC: Denies any suicidal or homicidal ideation. Denies hallucinations. PHYSICAL EXAM GENERAL APPEARANCE: The patient is awake, alert, and oriented, in no acute cardiopulmonary distress. NEUROLOGICAL: Cranial nerves II-XII grossly intact. Motor is 5/5 in bilateral upper and lower extremities proximal to distal. No sensory deficits. HEENT: Face is symmetric. Pupils are equal and reactive. Extraocular movements are intact. NECK: Supple. No JVD. No thyromegaly. No submental, submandibular, pre- /postauricular, occipital or supraclavicular lymphadenopathy. CHEST: Normal chest expansion. No Telemetry. LUNGS: Absence of any rales, rhonchi or any wheezing. CARDIOVASCULAR: Regular. S1 and S2 normal. No appreciable rubs, murmurs or gallops. ABDOMEN: Soft, nontender, and nondistended. There is no rebound, voluntary guarding, or rigidity. : Deferred. No So. EXTREMITIES: But bilateral lower extremity swelling SKIN: No skin breakdown. Vital Signs (last 8hr) Date Time Temp Pulse Resp B/P (MAP) Pulse Ox O2 Delivery O2 Flow Rate FiO2 08/23/24 12:00 98.1 76 18 119/76 99 Room Air 08/23/24 08:00 97.5 74 18 116/80 100 Room Air 08/23/24 07:46 97 Room Air* 0 21 LABS: Laboratory: Test 08/23/24 11:16 08/22/24 03:15 08/21/24 20:08 08/21/24 19:50 Range/Units Whole Blood Glucose 120 H 70-110 MG/DL White Blood Count 9.1 4.8-10.8 K/uL Red Blood Count 4.51 4.50-6.20 MIL/uL Hemoglobin 11.1 L 14.0-18.0 g/dL Hematocrit 36.6 L 42-54 % Mean Corpuscular Volume 81.2 79-99 fL Mean Corpuscular Hemoglobin 24.6 L 27.0-33.0 pg Mean Corpuscular Hemoglobin Concent 30.3 L 32.0-36.0 g/dL Red Cell Distribution Width 19.4 H 11.0-15.5 % Platelet Count 153 130-400 K/uL Mean Platelet Volume 10.2 7.5-10.5 fL Immature Granulocyte % (Auto) 0.3 0-1 % Neutrophils (%) (Auto) 88.5 H 40.0-77.0 % Lymphocytes (%) (Auto) 4.4 L 21.0-51.0 % Monocytes (%) (Auto) 6.7 3.0-13.0 % Eosinophils (%) (Auto) 0.0 0.0-8.0 % Basophils (%) (Auto) 0.1 0.0-5.0 % Neutrophils # (Auto) 8.0 H 1.8-7.7 K/uL Lymphocytes # (Auto) 0.4 L 1.0-4.8 K/uL Monocytes # (Auto) 0.6 0.1-1.0 K/uL Eosinophils # (Auto) 0.00 0.00-0.70 K/uL Basophils # (Auto) 0.01 0.00-0.20 K/uL Absolute Immature Granulocyte (auto 0.03 0-1 K/uL Nucleated Red Blood Cells 0.0 0.0-0.19 % Sodium Level 145 136-145 mmol/L Potassium Level 4.1 3.5-5.1 mmol/L Chloride Level 112 H 101-111 mmol/L Carbon Dioxide Level 23 21-32 mmol/L Blood Urea Nitrogen 47 H 7-18 mg/dL Creatinine 1.9 H 0.5-1.3 mg/dL Glomerular Filtration Rate Calc 40 >90 mL/min Random Glucose 65 #L 70-105 mg/dL Total Calcium 8.6 8.5-10.1 mg/dL Magnesium Level 2.20 1.80-2.40 mg/dL Total Bilirubin 1.0 0.2-1.0 mg/dL Aspartate Amino Transf (AST/SGOT) 40 H 10-37 U/L Alanine Aminotransferase (ALT/SGPT) 36 12-78 U/L Alkaline Phosphatase 114 50-136 U/L B-Type Natriuretic Peptide 2730 H 0-100 pg/mL Total Protein 5.7 L 6.0-8.3 g/dL Albumin 2.6 L 3.5-5.0 g/dL Urine Opiates Screen NEGATIVE NEGATIVE Urine Barbiturates Screen NEGATIVE NEGATIVE Urine Phencyclidine Screen NEGATIVE NEGATIVE Urine Amphetamines Screen NEGATIVE NEGATIVE Urine Benzodiazepines Screen NEGATIVE NEGATIVE Urine Cocaine Screen POSITIVE H NEGATIVE Urine Marijuana (THC) Screen POSITIVE H NEGATIVE Influenza Type A Antigen Negative For Type A NEGATIVE Influenza Type B Antigen Negative For Type B NEGATIVE SARS-CoV-2, RNA, NAAT NEGATIVE SARS CoV-2 NEGATIVE Test 08/21/24 19:25 Range/Units White Cell Morphology Comment See comments Red Blood Cell Morphology ANISO 1+ Current Medications Medications (Trade) Dose Ordered Sig/Mindy Route PRN Reason Start Time Stop Time Status Last Admin Dose Admin Acetaminophen (TYLenol 325MG TAB) 650 mg Q4H PRN PO MILD PAIN (1-3) 08/21/24 22:30 09/20/24 22:29 Acetaminophen (TYLenol 325MG TAB) 650 mg Q6H PRN PO TEMPERATURE GREATER THAN 101.5 08/21/24 22:30 09/20/24 22:29 Acetaminophen/ Hydrocodone Bitart (NORco 5/325MG) 1 tab Q4H PRN PO MODERATE PAIN (4-6) 08/21/24 22:30 08/26/24 22:29 08/23/24 14:46 1 TAB Dextrose (D50w) 50 ml AD PRN IV HYPOGLYCEMIA PROTOCOL 08/21/24 22:30 09/20/24 22:29 Empaglifozin (Jardiance 10mg) 10 mg DAILY PO 08/23/24 09:00 09/22/24 08:59 08/23/24 08:54 10 MG Famotidine (Pepcid 20mg Tab) 20 mg Q48H PO 08/22/24 09:00 09/21/24 08:59 08/22/24 08:20 20 MG Furosemide (LASix 20MG VIAL) 20 mg BID IV 08/22/24 09:00 09/21/24 08:59 08/23/24 08:54 20 MG Glucagon (Glucagon 1mg Kit) 1 mg AD PRN IM HYPOGLYCEMIA PROTOCOL 08/21/24 22:30 09/20/24 22:29 Guaifenesin/ Dextromethorphan (RobiTUSSin DM 200/20MG 10ML) 10 ml Q4H PRN PO COUGH 08/21/24 22:30 09/20/24 22:29 Hydralazine HCl (APRESOLine 20MG INJ) 10 mg Q6H PRN IV For:SBP above 160;DBP above 90 08/21/24 22:30 08/22/24 11:09 DC Insulin Human Regular (humuLIN R 100 UNIT/ML 3ML) INSULIN SLIDING SCAL... ACHS SQ 08/22/24 07:30 09/21/24 07:29 08/22/24 21:14 2 UNIT Lisinopril (Prinivil 2.5mg) 2.5 mg DAILY PO 08/23/24 09:00 09/22/24 08:59 08/23/24 08:54 2.5 MG Magnesium Sulfate 50 ml @ 0 mls/hr PROTOCOL PRN IV OTHER [SEE ORDER COMMENTS] 08/21/24 22:30 09/20/24 22:29 Metoprolol Succinate (TopROL XL) 25 mg DAILY PO 08/23/24 09:00 09/22/24 08:59 08/23/24 08:54 25 MG Ondansetron HCl (zoFRAN 4MG INJ) 4 mg Q6H PRN IV NAUSEA/VOMITING 08/21/24 22:30 09/20/24 22:29 Potassium Chloride 100 ml @ 100 mls/hr AD PRN IV POTASSIUM PROTOCOL 08/21/24 22:30 09/20/24 22:29 DIAGNOSTICS / RADIOLOGY: PATIENT: DIANELYS ALMODOVAR MR#: [id number] : 1960 SEX: M AGE: 63 LOCATION: [facility] ORDER 16 STATUS: REG REPORT#: [id number] SERVICE 14 REASON: Dyspnea/SOB ORDERING PHYSICIAN: YESENIA CARTER MD PROCEDURE: CXR1VW - CHEST 1VW CHEST 1VW CLINICAL HISTORY: Dyspnea/SOB COMPARISON: 07/24/2024 TECHNIQUE: Single view of the chest was obtained. FINDINGS: Lungs are clear. Cardiac size is mildly enlarged and stable. There is no acute bony abnormality. IMPRESSION: Mild cardiomegaly ASSESSMENT: Acute on chronic combined systolic and diastolic heart failure with cardiomyopathy POA Acute on chronic renal insufficiency POA Hyperkalemia POA Diabetes POA Hypertension POA Hyperlipidemia POA Polysubstance abuse POA Nicotine dependence POA Medical noncompliance POA Homelessness POA PLAN: We will admit patient in medical telemetry for monitoring of hemodynamics and fluids status. We will start on heart healthy and consistent carb diet and low-sodium diet We will start on Lasix 20 mg IV b.i.d. We will start on Famotidine 20 mg p.o. q.48h for GI prophylaxis We will start on insulin sliding scale AC & HS with hypoglycemia protocol We will add prn medication for fever,pain,cough, nausea and vomiting Potassium chloride and magnesium sulfate as per replacement protocols. Cardiology consultation for optimization of congestive heart failure and card iomyopathy management. upkeep worker referral for addressing homelessness, medical noncompliance and arrange access to medication. Fluid restriction of 1.5 L per day with strict intake and output monitoring. Daily basic metabolic panel, electrolytes and renal function test. HbA1c for long-term diabetes management. Administer supplemental O2 to maintain saturation above 92. We will reconcile home meds once medlist available We will request daily weight and strict I&O Fluid restriction 1.5 L per day Use oxygen supplementation to keep saturation above 92% We will seek Cardiology consultation We will request case management and social Service(frequent admission and no access to medication ) Dietary consultation for malnutrition and education for CHF diet We will request labs in am Further orders to follow depending on above results Case discussed with attending physician and came up with above treatment and plan of care. ATTESTATION BY PHYSICIAN I have seen and examined the patient. I reviewed the documentation, medical decision making, and treatment plan as noted by the mid-level provider above. I agree with the findings and plan of care. Milton Garza MD, RAGHAVA R MD Aug 23, 2024 15:36
--- NOTE | 2024-08-23 16:59 | PN ---
[facility] CARDIOLOGY PROGRESS NOTE Date Patient Seen: Aug 23, 2024 Time of Visit: 16:53 Interval History: [ Diuresing well] Physical Examination: GENERAL: [No acute distress.] HEAD: [Normal with no signs of head trauma.] EYES: [PERRLA, EOMI, conjunctiva and sclera normal.] ENT: [Hearing grossly intact, normal oropharynx.] NECK: [Supple without JVD. There is no tenderness, lymphadenopathy, or masses. No thyromegaly. Normal carotid upstrokes without bruits.] LUNGS: [Clear breath sounds bilaterally. There are right basilar rales one third of the way up the chest. No wheezes, or rhonchi.] HEART: [Normal rate and rhythm. Normal S1 and S2 without mumurs, gallop or rub.] ABD: [Bowel sounds normal, soft, nontender, no masses, no organomegaly. No audible bruits.] : [Not examined] LYMPH: [No lymphadenopathy noted.] EXT: [+ lower extremity edema.] NEURO: [Awake, alert, and oriented x3. No focal sensory or strength deficits noted.] Laboratory: [ ] Hematology Labs: Test 08/22/24 03:15 08/21/24 19:25 Range/Units White Blood Count 9.1 4.8-10.8 K/uL Red Blood Count 4.51 4.50-6.20 MIL/uL Hemoglobin 11.1 L 14.0-18.0 g/dL Hematocrit 36.6 L 42-54 % Mean Corpuscular Volume 81.2 79-99 fL Mean Corpuscular Hemoglobin 24.6 L 27.0-33.0 pg Mean Corpuscular Hemoglobin Concent 30.3 L 32.0-36.0 g/dL Red Cell Distribution Width 19.4 H 11.0-15.5 % Platelet Count 153 130-400 K/uL Mean Platelet Volume 10.2 7.5-10.5 fL Immature Granulocyte % (Auto) 0.3 0-1 % Neutrophils (%) (Auto) 88.5 H 40.0-77.0 % Lymphocytes (%) (Auto) 4.4 L 21.0-51.0 % Monocytes (%) (Auto) 6.7 3.0-13.0 % Eosinophils (%) (Auto) 0.0 0.0-8.0 % Basophils (%) (Auto) 0.1 0.0-5.0 % Neutrophils # (Auto) 8.0 H 1.8-7.7 K/uL Lymphocytes # (Auto) 0.4 L 1.0-4.8 K/uL Monocytes # (Auto) 0.6 0.1-1.0 K/uL Eosinophils # (Auto) 0.00 0.00-0.70 K/uL Basophils # (Auto) 0.01 0.00-0.20 K/uL Absolute Immature Granulocyte (auto 0.03 0-1 K/uL Nucleated Red Blood Cells 0.0 0.0-0.19 % White Cell Morphology Comment See comments Red Blood Cell Morphology ANISO 1+ Chemistry Labs: Test 08/23/24 16:17 08/23/24 16:00 08/22/24 03:15 Range/Units Whole Blood Glucose 172 H 70-110 MG/DL Phosphorus Level 2.8 2.5-4.9 mg/dL Sodium Level 145 136-145 mmol/L Potassium Level 4.1 3.5-5.1 mmol/L Chloride Level 112 H 101-111 mmol/L Carbon Dioxide Level 23 21-32 mmol/L Blood Urea Nitrogen 47 H 7-18 mg/dL Creatinine 1.9 H 0.5-1.3 mg/dL Glomerular Filtration Rate Calc 40 >90 mL/min Random Glucose 65 #L 70-105 mg/dL Total Calcium 8.6 8.5-10.1 mg/dL Magnesium Level 2.20 1.80-2.40 mg/dL Total Bilirubin 1.0 0.2-1.0 mg/dL Aspartate Amino Transf (AST/SGOT) 40 H 10-37 U/L Alanine Aminotransferase (ALT/SGPT) 36 12-78 U/L Alkaline Phosphatase 114 50-136 U/L B-Type Natriuretic Peptide 2730 H 0-100 pg/mL Total Protein 5.7 L 6.0-8.3 g/dL Albumin 2.6 L 3.5-5.0 g/dL Diagnostics / Radiology: [Copy/Paste Echos/Imaging Report here] Impression and Plan: [Acute on chronic CHF exacerbation LVEF 25-30%, grade III diastolic failure -c/w OMGT metoprolol succinate 25 mg qd, low-dose lisinopril 2.5 mg qd, and Jardiance 10 mg. -lasix 20 mg IV bid started -will monitor Is/Os and Cr Gladys Rankin MD ] GLADYS RANKIN MD Aug 23, 2024 16:59
[2024-08-24 04:00] VITALS: BP 119/76; PULSE 73; RESP 20; TEMP 98
[2024-08-24 07:15] VITALS: BP 126/83; PULSE 79; RESP 20; TEMP 97.7
--- NOTE | 2024-08-24 07:42 | PN ---
[facility] Cardiology Progress Note CARDIOLOGY PROGRESS NOTE AUGUST 24, 2024 Problems: 1. Acute on chronic systolic and diastolic heart failure 2. Dilated cardiomyopathy with ejection fraction of 25-30% 3. Chronic kidney disease stage IIIb 4. History of polysubstance abuse with tox screen positive for cocaine and THC 5. Noncompliance with follow-up Blood pressure is running 120 systolic. Heart rate is in the 70s. No new labs available this morning. The patient is receiving empagliflozin famotidine IV furosemide insulin scale lisinopril metoprolol succinate. I will plan on restar ting his spironolactone. Empagliflozin is a reasonable consideration however I suspect the patient will not be able to afford this is an outpatient. If he does follow up in the office after discharge we will make an application to see if he can obtain the medication through assistance. A basic metabolic panel will be ordered this morning. He diuresed 3775 cc yesterday. Weight has come down 1 kg since yesterday. The patient relates that he did not follow up in my office after his last discharge because he did not have transportation. He is homeless but claims he was compliant with his medications. On the other hand he did have money to purchase cocaine. He has been strongly advised to no longer use cocaine and to try to follow-up after discharge. Prognosis is poor. Does complain of pain in his feet. We will obtain some arterial Dopplers check circulation. LANETTE MCLEAN MD Aug 24, 2024 07:42
[2024-08-24 08:00] VITALS: O2SAT 100
[2024-08-24] MEDS: SPIRONOLACTONE 25 MG TAB PO SCH (08:47)
--- NOTE | 2024-08-24 11:30 | NUR ---
[facility]IS[facility] NOTE: POC LIESTH SPOKE TO YEIMI ASK REP TO SEE IF WILL BE ABLE TO ASSIST PT W/PLACEMENT. REP CHECKED, UNABLE TO MEET PT NEEDS AT THIS TIME, NO SKILLED NURSE NEED TO ADMIT PT. CM INFORMED DR RODRIUGEZ OF ABOVE, PLAN IS FOR PT TO RETURN TO HIS ORIGINAL SETTING WHEREVER HE WISH TO GO [address]. PRIMARY NURSE PURNIMA AWARE. CM TO CONTINUE TO FOLLOW UP. Addendum: 08/24/24 at 1658 by OMARI NICHOLS LVN CM Amended: Links added.
[2024-08-24 11:53] VITALS: BP 143/89; PULSE 79; RESP 20; TEMP 97.9
--- NOTE | 2024-08-24 14:29 | HMCIMG ---
US ARTERIAL BILAT LOW EXT DUPL REASON: PAD COMPARISON: None TECHNIQUE: Bilateral lower extremity arterial Doppler evaluation was performed with spectral analysis and color flow imaging. FINDINGS: Right leg shows normal triphasic waveforms common femoral artery through the popliteal artery. Flow velocities are preserved. There are monophasic waveforms at the foot and ankle. Posterior tibial and anterior tibial artery waveforms are flattened, there is decreased flow velocity in the dorsalis pedis artery. Findings are consistent with moderate arterial inflow occlusion at the trifurcation level. Left leg shows triphasic waveforms common femoral artery through the popliteal artery. Posterior tibial, anterior tibial and dorsalis pedis are monophasic but with preservation of flow velocity. IMPRESSION: 1. Moderate arterial inflow occlusion on the right at the trifurcation level. 2. Mild arterial inflow occlusion on the left trifurcation level.
[2024-08-24] MEDS ORDERED: EMPA10TA PO (14:47)
[2024-08-24] MEDS ORDERED: ACET-2247 PO (14:47)
[2024-08-24] MEDS ORDERED: GABA-529 PO (14:51)
--- NOTE | 2024-08-24 15:02 | DS ---
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 The patient is also homeless and has significant medical noncompliance due to limited resources. Upon admission the patient was noted to have mild hyperglycemia serum glucose of 171, low hemoglobin 11.1 and evidence of fluid retention requiring diuresis. Initial imaging chest x-ray show cardiomegaly with no acute pulmonary findings, while echocardiogram confirmed severely reduced ejection fraction of 25-30% consistent with chronic systolic and diastolic heart failure. Patient was managed with IV diuretics furosemide for volume overload and was administered spironolactone. Optimization of heart failure therapy with lisinopril metoprolol succinate, and empagliflozin. Sliding scale insulin for glycemic control. Replace the potassium and magnesium for electrolyte derangements. Hospitalization the patient's volume status improved significantly and he demond erated heart healthy diet. A comprehensive multidisciplinary team approach was employed to address the medical, social, and psychiatric needs. The patient was educated on the importance of medication compliance and lifestyle modification to optimize his heart failure management. Business Change Manager(s): Sergio Moreira MD,Mario Alberto Rankin,Jer Winslow MD, MD, Satish MD Procedure(s): PATIENT: DIANELYS ALMODOVAR MR#: [id number] : 1960 SEX: M AGE: 63 LOCATION: [facility] ORDER 3 STATUS: ADM IN REPORT#: [id number] SERVICE 0731 REASON: PAD ORDERING PHYSICIAN: SERGIO MOREIRA MD PROCEDURE: ART B LE - US ARTERIAL BILAT LOW EXT DUPL US ARTERIAL BILAT LOW EXT DUPL REASON: PAD COMPARISON: None TECHNIQUE: Bilateral lower extremity arterial Doppler evaluation was performed with spectral analysis and color flow imaging. FINDINGS: Right leg shows normal triphasic waveforms common femoral artery through the popliteal artery. Flow velocities are preserved. There are monophasic waveforms at the foot and ankle. Posterior tibial and anterior tibial artery waveforms are flattened, there is decreased flow velocity in the dorsalis pedis artery. Findings are consistent with moderate arterial inflow occlusion at the trifurcation level. Left leg shows triphasic waveforms common femoral artery through the popliteal artery. Posterior tibial, anterior tibial and dorsalis pedis are monophasic but with preservation of flow velocity. IMPRESSION: 1. Moderate arterial inflow occlusion on the right at the trifurcation level. 2. Mild arterial inflow occlusion on the left trifurcation level. PATIENT: DIANELYS ALMODOVAR MR#: [id number] : 1960 SEX: M AGE: 63 LOCATION: [facility] ORDER 16 STATUS: REG ER REPORT#: [id number] SERVICE 14 REASON: Dyspnea/SOB ORDERING PHYSICIAN: MARIO ALBERTO CARTER MD PROCEDURE: CXR1VW - CHEST 1VW CHEST 1VW CLINICAL HISTORY: Dyspnea/SOB COMPARISON: 07/24/2024 TECHNIQUE: Single view of the chest was obtained. FINDINGS: Lungs are clear. Cardiac size is mildly enlarged and stable. There is no acute bony abnormality. IMPRESSION: Mild cardiomegaly Assessment/Plan: ASSESSMENT: Acute on chronic combined systolic and diastolic heart failure with cardiomyopathy POA Acute on chronic renal insufficiency POA Hyperkalemia POA Diabetes POA Hypertension POA Hyperlipidemia POA Polysubstance abuse POA Nicotine dependence POA Medical noncompliance POA Homelessness POA PLAN: We will admit patient in medical telemetry for monitoring of hemodynamics and fluids status. We will start on heart healthy and consistent carb diet and low-sodium diet We will start on Lasix 20 mg IV b.i.d. We will start on Famotidine 20 mg p.o. q.48h for GI prophylaxis We will start on insulin sliding scale AC & HS with hypoglycemia protocol We will add prn medication for fever,pain,cough, nausea and vomiting Potassium chloride and magnesium sulfate as per replacement protocols. Cardiology consultation for optimization of congestive heart failure and cardiomyopathy management. drug department worker referral for addressing homelessness, medical noncompliance and arrange access to medication. Fluid restriction of 1.5 L per day with strict intake and output monitoring. Daily basic metabolic panel, electrolytes and renal function test. HbA1c for long-term diabetes management. Administer supplemental O2 to maintain saturation above 92. We will reconcile home meds once medlist available We will request daily weight and strict I&O Fluid restriction 1.5 L per day Use oxygen supplementation to keep saturation above 92% We will seek Cardiology consultation We will request case management and social Service(frequent admission and no access to medication ) Dietary consultation for malnutrition and education for CHF diet We will request labs in am Further orders to follow depending on above results Case discussed with attending physician and came up with above treatment and plan of care. Discharge Instructions: ADMISSION DATE : AUGUST 22, 2024 DISCHARGE DATE : August DISPOSITION : HOMELESS CONDITION : STABLE CLASSIFIED ADVERTISING MANAGER(S) : Sergio Moreira MD,Mario Alberto Rankin,Gladys Gr,Milton Millan MD, MD FOLLOW UP APPOINTMENT(S): PRIMARY CARE APPOINTMENT WITHIN1 WEEK OF DISCHARGE FOR MEDICATION RECONCILIATION AND REVIEW OF LAB RESULTS. CARDIOLOGY APPOINTMENT IN 2 WEEKS FOR HEART FAILURE MANAGEMENT AND OPTIMIZATION OF MEDICAL THERAPY. CONSIDER REPEAT ECHOCARDIOGRAM IN3 MONTHS TO ASSESS EJECTION FRACTION. ENDOCRINOLOGY FOLLOW-UP APPOINTMENT IN 1 MONTH FOR DIABETES MANAGEMENT AND EVALUATE HBA1C TRENDS. POSTOP WORKER APPOINTMENT FOR COORDINATION OF STABLE HOUSING, ACCESS TO MEDICATION AND TRANSPORTATION TO FOLLOW-UP APPOINTMENTS. IMAGING(S) : REPORTS ATTACHED TO SUMMARY. MICROBIOLOGY : REPORTS ATTACHED TO SUMMARY. ACTIVITY : AD STEPHANIE HOME MEDICATION : CONTINUED TEACHING : REINFORCED THE IMPORTANCE OF MEDICATION COMPLIANCE AND FOLLOW-UP APPOINTMENTS. Home Medications: Active Scripts Furosemide (Furosemide) 40 Mg Tablet, 40 MG PO DAILY, #30 TAB 3 Refills Prov:SERGIO MOREIRA MD 07/29/24 Spironolactone (Spironolactone) 25 Mg Tablet, 25 MG PO DAILY, #30 TAB 3 Refills Prov:SERGIO MOREIRA MD 07/29/24 Metoprolol Succinate (Toprol Xl) 25 Mg Tab.er.24h, 25 MG PO DAILY, #30 TAB 3 Refills Prov:SERGIO MOREIRA MD 07/29/24 Losartan Potassium (Cozaar) 25 Mg Tablet, 25 MG PO DAILY20, #30 TAB 3 Refills Prov:SERGIO MOREIRA MD 07/29/24 Discontinued Scripts Nitroglycerin (Nitroglycerin) 0.4 Mg Tab.subl, 0.4 MG SL [id number] PRN for chest pain, #30 TAB.SL 1 Refill Prov:JER GR MD 11/28/23 Aspirin (ASPIRIN 81 MG ECTAB) 81 Mg Ectab, 81 MG PO DAILY for 30 Days, #30 TAB.EC 2 Refills Prov:JER GR MD 11/28/23 Atorvastatin Calcium (Atorvastatin Calcium) 40 Mg Tablet, 40 MG PO HS for 30 Days, #90 TAB 3 Refills Prov:JER GR MD 11/28/23 New Medications: Aspirin (Aspirin 81MG Chew Tab) 81 Mg Tab.chew 1 TAB PO DAILY for 30 Days, #30 TAB 0 Refills Atorvastatin Calcium (Atorvastatin Calcium) 10 Mg Tablet 1 TAB PO DAILY for 30 Days, #30 TAB 0 Refills Gabapentin (Gabapentin) 100 Mg Capsule 1 CAP PO BID for 30 Days, #90 CAP 0 Refills Acetaminophen (Tylenol) 325 Mg Tablet 650 MG PO Q4H PRN for MILD PAIN (1-3), #30 TAB Empagliflozin (Jardiance) 10 Mg Tablet 10 MG PO DAILY, #60 TAB Continued Medications: Furosemide (Furosemide) 40 Mg Tablet 40 MG PO DAILY, #30 TAB 3 Refills Losartan Potassium (Cozaar) 25 Mg Tablet 25 MG PO DAILY20, #30 TAB 3 Refills Metoprolol Succinate (Toprol Xl) 25 Mg Tab.er.24h 25 MG PO DAILY, #30 TAB 3 Refills Spironolactone (Spironolactone) 25 Mg Tablet 25 MG PO DAILY, #30 TAB 3 Refills Time spent arranging discharge: 31-60 minutes ATTESTATION BY PHYSICIAN I have seen and examined the patient. I reviewed the documentation, medical decision making, and treatment plan as noted by the mid-level provider above. I agree with the findings and plan of care. Milton Garza MD, RAGHAVA R MD Aug 24, 2024 15:02
[2024-08-24 15:05] VITALS: BP 117/80; PULSE 70; RESP 20; TEMP 98
[2024-08-24] MEDS ORDERED: ATOR10TA69 PO (15:17)
[2024-08-24] MEDS ORDERED: ASPI-1005 PO (15:17)
--- NOTE | 2024-08-24 18:10 | NUR ---
Discharge Patient been discharge to [address] [place] [address], all discharge instructions given to patient, all questions answered, no blankets and food provided prior discharge, instructed in case of an emergency to go to nearest hospital, all belongings taken by patient, hospital provided lyft transpiration.
== END 2024-08-24 18:29 | disposition home or self-care (01) | DRG 291 ==
LOC: EDH 19:08 → EDHIP 22:06 → 4DH 23:00
PROVIDERS: ADMIT Internal Medicine; ATTEND Internal Medicine
DX: I13.0 Hypertensive heart and chronic kidney disease with heart failure and stage 1 through stage 4 chronic kidney disease, or unspecified chronic kidney disease (principal); I50.43 Acute on chronic combined systolic (congestive) and diastolic (congestive) heart failure; Z59.00 Homelessness unspecified; N18.32 Chronic kidney disease, stage 3b; Z20.822 Contact with and (suspected) exposure to COVID-19; E11.22 Type 2 diabetes mellitus with diabetic chronic kidney disease; E87.5 Hyperkalemia; D64.9 Anemia, unspecified; E11.65 Type 2 diabetes mellitus with hyperglycemia; E78.00 Pure hypercholesterolemia, unspecified; M54.9 Dorsalgia, unspecified; I25.10 Atherosclerotic heart disease of native coronary artery without angina pectoris; I42.0 Dilated cardiomyopathy; F17.200 Nicotine dependence, unspecified, uncomplicated; F19.10 Other psychoactive substance abuse, uncomplicated; Z79.84 Long term (current) use of oral hypoglycemic drugs; Z82.49 Family history of ischemic heart disease and other diseases of the circulatory system; Z83.3 Family history of diabetes mellitus; Z86.73 Personal history of transient ischemic attack (TIA), and cerebral infarction without residual deficits; Z91.148 Patient's other noncompliance with medication regimen for other reason; Z79.899 Other long term (current) drug therapy
CPT/HCPCS: 36415; 71045; 80048; 80053; 80305; 82948; 83735; 83880; 84100; 85025; 87635; 87804; 93005; 93925; 94640; 96372; 96374; 96376; 99285; A6248; G0378; J1815; J1940; J7070

== ENCOUNTER 2024-10-27 18:43 | Inpatient (IN) | payer OTHER ==
[~2024-10-27] VITALS: Ht 160 cm; Wt 60.3 kg
[~2024-10-27 18:43] MED LIST changes: +ACET-2247 PO; -AEC81 PO; +ASPI-1005 PO; +ATOR10TA69 PO; -ATOR40TA71 PO; +EMPA10TA PO; +GABA-529 PO; -NITR0.4T50 SL
--- NOTE | 2024-10-27 18:52 | NUR ---
PT HAS NO IV WILL BE PLACED IN WHEELCHAIR IN LOBBY
[2024-10-27 19:38] LABS: BASOPHILS # (AUTO) 0.03 K/uL (0.00-0.20); BASOPHILS % (AUTO) 0.4 % (0.0-5.0); EOSINOPHILS # (AUTO) 0.01 K/uL (0.00-0.70); EOSINOPHILS % (AUTO) 0.1 % (0.0-8.0); HEMATOCRIT 29.6 % (42-54); IMMATURE GRANULOCYTE ABSOLUTE 0.08 K/uL (0-1); LYMPHOCYTES # (AUTO) 0.6 K/uL (1.0-4.8); MEAN CORPUSCULAR HGB CONC 31.8 g/dL (32.0-36.0); MEAN CORPUSCULAR VOLUME 88.1 fL (79-99); MONOCYTES # (AUTO) 0.9 K/uL (0.1-1.0); MONOCYTES % (AUTO) 10.4 % (3.0-13.0); NEUTROPHILS # (AUTO) 6.6 K/uL (1.8-7.7); NEUTROPHILS % (AUTO) 81.1 % (40.0-77.0); PLATELET COUNT (AUTO) 359 K/uL (130-400); RED BLOOD CELL COUNT(AUTO) 3.36 MIL/uL (4.50-6.20); RED CELL DISTRIBUTION WIDTH 22.7 % (11.0-15.5); WHITE BLOOD COUNT (AUTO) 8.2 K/uL (4.8-10.8)
--- NOTE | 2024-10-27 19:51 | HMCIMG ---
Exam Type: CHEST 1VW Clinical Information: CHEST PAIN Comparison: None Findings: The lungs are clear of infiltrates. The heart is enlarged. Bony and soft tissue structures of the chest wall are unremarkable. IMPRESSION: Cardiomegaly. Clear lungs.
[2024-10-27 19:58] LABS: CREATININE 1.5 mg/dL (0.5-1.3); POTASSIUM 4.9 mmol/L (3.5-5.1)
[2024-10-27 20:30] LABS: B-TYPE NATRIURETIC PEPTIDE 2730 pg/mL (0-100)
--- NOTE | 2024-10-27 20:59 | ERN ---
ED Note History of Present Illness Stated Complaint: CP Chief Complaint: Chest Pain Time Seen by MD: 18:48 Time Seen by Midlevel: 18:52 Dictation: 64-YEAR-OLD MALE WITH A HISTORY OF COPD, CAD, CHF COMING IN COMPLAINING OF CHEST PAIN, ABDOMINAL PAIN, BILATERAL LEG SWELLING. PATIENT STATES HE LEFT AMA FROM [facility] TODAY BECAUSE HE WAS NOT RECEIVING ANY CARE AND DECIDED TO COME HERE AND BE EVALUATED. PATIENT STATES HE WAS ADMITTED AT [facility] FOR SAME COMPLAINTS. DENIES HAVING ANY FEVERS, NAUSEA, VOMITING. Allergies: Coded Allergies: No Known Allergies (Verified Allergy, Unknown, 10/25/19) Home Meds Active Scripts Aspirin (ASPIRIN 81MG CHEW TAB) 81 Mg Tab.chew, 1 TAB PO DAILY for 30 Days, #30 TAB 0 Refills Prov:NEO GUTIERREZ AGPCNP 09/19/24 Atorvastatin Calcium (Atorvastatin Calcium) 10 Mg Tablet, 1 TAB PO DAILY for 30 Days, #30 TAB 0 Refills Prov:NEO GUTIERREZ AGPCNP 09/19/24 Gabapentin (Gabapentin) 100 Mg Capsule, 1 CAP PO BID for 30 Days, #90 CAP 0 Refills Prov:NEO GUTIERREZ AGPCNP 09/19/24 Empagliflozin (Jardiance) 10 Mg Tablet, 10 MG PO DAILY, #60 TAB Prov:NEO GUTIERREZPCNP 09/19/24 Acetaminophen (Tylenol) 325 Mg Tablet, 650 MG PO Q4H PRN for MILD PAIN (1-3), #30 TAB Prov:NEO GUTIERREZ AGPCNP 09/19/24 Furosemide (Furosemide) 40 Mg Tablet, 40 MG PO DAILY, #30 TAB 3 Refills Prov:NEO GUTIERREZ AGPCNP 09/19/24 Spironolactone (Spironolactone) 25 Mg Tablet, 25 MG PO DAILY, #30 TAB 3 Refills Prov:NEO GUTIERREZ AGPCNP 09/19/24 Metoprolol Succinate (Toprol Xl) 25 Mg Tab.er.24h, 25 MG PO DAILY, #30 TAB 3 Refills Prov:NEO GUTIERREZ AGPCNP 09/19/24 Losartan Potassium (Cozaar) 25 Mg Tablet, 25 MG PO DAILY20, #30 TAB 3 Refills Prov:NEO GUTIERREZ AGPCNP 09/19/24 Past Medical History Past Medical History: Diabetes-Type II, Heart Disease, Hypertension Additional Past Medical Hx: CHRONIC BACK PAIN, PTSD, CARDIOMYOPATHY Surgical History: Unknown Surgical History Other: BACK;LEFT SHOULDER Family History: CAD, DM, HTN Social History: Smokers, Drugs, Other Review of System Dictation CONSTITUTIONAL: NEGATIVE FOR FEVER,CHILLS, AND WEIGHT LOSS EYES: NEGATIVE FOR INJURY, PAIN,REDNESS, AND DISCHARGE ENT: NEGATIVE FOR INJURY,PAIN OR SWELLING CARDIOVASCULAR: COMPLAINING OF CHEST PAIN, NO PALPITATIONS, AND BILATERAL LOWER EXTREMITY EDEMA RESPIRATORY: NEGATIVE FOR SHORTNESS OF BREATH, COUGH, AND WHEEZING, ABDOMEN/GI: COMPLAINING OF ABDOMINAL PAIN, NO NAUSEA, NO VOMITING, NO DIARRHEA, AND NO CONSTIPATION BACK: NEGATIVE FOR INJURY AND PAIN : NEGATIVE FOR INJURY, BLEEDING AND DISCHARGE MS/EXTREMITY: NEGATIVE FOR INJURY AND DEFORMITY SKIN: NEGATIVE FOR RASH, AND DISCOLORATION NEURO: NEGATIVE FOR HEADACHE, WEAKNESS, NUMBNESS, TINGLING, AND SEIZURE PSYCH: NEGATIVE FOR SUICIDE IDEATION, HOMICIDAL IDEATION, AND HALLUCINATIONS Review of Systems: was completed Initial Vital Sign VS Vital Signs Date Time Temp Pulse Resp B/P (MAP) Pulse Ox O2 Delivery O2 Flow Rate FiO2 10/27/24 19:11 99.0 85 20 135/81 100 Room Air Physical Exam Dictation GENERAL: AWAKE, ALERT, NAD HEAD/FACE: NORMOCEPHALIC, ATRAUMATIC EYES: PERRL, EOMI, VISION AT BASELINE ENT: ORAL CAVITY CLEAR, TMS CLEAR, NO SIGNS OF INFECTION NECK: TRACHEA MIDLINE, SUPPLE, NO NUCHAL RIGIDITY CARDIOVASCULAR: RRR, NORMAL S1/S2, NO MRGS, NO JVD, BILATERAL LOWER EXTREMITY EDEMA, NONPITTING RESPIRATORY: CTAB, NO RESPIRATORY DISTRESS, NO RALES OR WHEEZES ABDOMEN: SOFT, NON-TENDER, NON-DISTENDED, NORMAL BOWEL SOUNDS, NO GUARDING OR REBOUND. SKIN: WARM, DRY, NORMAL TURGOR, NO RASH MS/EXTREMITY: PULSES EQUAL, NO CYANOSIS, NEUROVASCULAR INTACT, FROM NEURO: COAX4, GCS 15, STRENGTH 5/5, CN 2-12 INTACT, NORMAL CEREBELLAR EXAM, NORMAL GAIT, PSYCH: NORMAL BEHAVIOR, MOOD, AND AFFECT NORMAL Results (Laboratory/Radiology) Laboratory/Radiology Laboratory Tests Test 10/27/24 19:30 White Blood Count 8.2 K/uL (4.8-10.8) Red Blood Count 3.36 MIL/uL (4.50-6.20) L Hemoglobin 9.4 g/dL (14.0-18.0) L Hematocrit 29.6 % (42-54) L Mean Corpuscular Volume 88.1 fL (79-99) Mean Corpuscular Hemoglobin 28.0 pg (27.0-33.0) Mean Corpuscular Hemoglobin Concent 31.8 g/dL (32.0-36.0) L Red Cell Distribution Width 22.7 % (11.0-15.5) H Platelet Count 359 K/uL (130-400) Mean Platelet Volume 9.5 fL (7.5-10.5) Immature Granulocyte % (Auto) 1.0 % (0-1) Neutrophils (%) (Auto) 81.1 % (40.0-77.0) H Lymphocytes (%) (Auto) 7.0 % (21.0-51.0) L Monocytes (%) (Auto) 10.4 % (3.0-13.0) Eosinophils (%) (Auto) 0.1 % (0.0-8.0) Basophils (%) (Auto) 0.4 % (0.0-5.0) Neutrophils # (Auto) 6.6 K/uL (1.8-7.7) Lymphocytes # (Auto) 0.6 K/uL (1.0-4.8) L Monocytes # (Auto) 0.9 K/uL (0.1-1.0) Eosinophils # (Auto) 0.01 K/uL (0.00-0.70) Basophils # (Auto) 0.03 K/uL (0.00-0.20) Absolute Immature Granulocyte (auto 0.08 K/uL (0-1) Nucleated Red Blood Cells 0.0 % (0.0-0.19) Sodium Level 132 mmol/L (136-145) L Potassium Level 4.9 mmol/L (3.5-5.1) Chloride Level 100 mmol/L (101-111) L Carbon Dioxide Level 25 mmol/L (21-32) Blood Urea Nitrogen 42 mg/dL (7-18) H Creatinine 1.5 mg/dL (0.5-1.3) H Glomerular Filtration Rate Calc 52 mL/min (>90) Random Glucose 98 mg/dL (70-105) Total Calcium 7.9 mg/dL (8.5-10.1) L Total Creatine Kinase 101 U/L (21-232) # Troponin I High Sensitivity 237 ng/L (4-75) *H B-Type Natriuretic Peptide 2730 pg/mL (0-100) H Labs Reviewed?: Yes EKG Comment: DATE:10/27/24 TIME:1842 VENTRICULAR RATE:82 NV INTERVAL:174 QRS DURATION:114 QT/QTC:372/435 EKG INTERPRETATION: SINUS RHYTHM, PROBABLE ANTERIOR INFARCT, AGE UNDETERMINED REVIEWED BY ED ATTENDING NO STEMI INTERPRETED BY ER MD X-RAY Comment: [facility] [address] [place] [address] IMAGING REPORT Signed PATIENT: DIANELYS ALMODOVAR MR#: [id number] : 1960 SEX: M AGE: 64 LOCATION: [facility] ORDER 45 STATUS: REG ER REPORT#: [id number] SERVICE 44 REASON: CHEST PAIN ORDERING PHYSICIAN: YANN TAPIA DO PROCEDURE: CXR1VW - CHEST 1VW Exam Type: CHEST 1VW Clinical Information: CHEST PAIN Comparison: None Findings: The lungs are clear of infiltrates. The heart is enlarged. Bony and soft tissue structures of the chest wall are unremarkable. IMPRESSION: Cardiomegaly. Clear lungs. DICTATED BY: MAGI REDDY MD DATE: 10/27/241948 ELECTRONICALLY SIGNED BY: MAGI REDDY MD DATE: 10/27/241950 ED Course ED Course Orders Procedure Category Date Status Time Vital Signs Per CPOE 10/27/24 Transmitted Routine 18:45 B-Type Natriuretic LAB 10/27/24 In Process Peptide 18:45 Chest 1vw RAD 10/27/24 Resulted 18:45 12 Lead Ekg Tracing- EKG 10/27/24 Logged Technical 18:45 Oxygen By Nc/Pulse Ox CPOE 10/27/24 Transmitted 18:45 Maintain Iv CPOE 10/27/24 Transmitted 18:45 Iv Insertion CPOE 10/27/24 Transmitted 18:45 Cardiac Monitoring CPOE 10/27/24 Transmitted 18:45 Pulse Oximetry With CPOE 10/27/24 Transmitted Vs And Prn 18:45 Cbc With Differential LAB 10/27/24 In Process 18:45 Activity: Br W/Brp CPOE 10/27/24 Transmitted With Assist 18:45 Creatine Kinase, Total LAB 10/27/24 Complete 18:45 Troponin I High LAB 10/27/24 Complete Sensitivity 18:45 Urinalysis Profile LAB 10/27/24 Logged 18:45 Troponin Poc Order LAB 10/27/24 Complete Only 18:45 Bedside Troponin-I LAB.ER 10/27/24 In Process (Poc) 18:45 Basic Metabolic Panel LAB 10/27/24 Complete 18:45 Vital Signs Date Time Temp Pulse Resp B/P (MAP) Pulse Ox O2 Delivery O2 Flow Rate FiO2 10/27/24 19:11 99.0 85 20 135/81 100 Room Air Medical Decision Making MDM MDM: 64-YEAR-OLD MALE WITH A HISTORY OF COPD, CAD, CHF COMING IN COMPLAINING OF CHEST PAIN, ABDOMINAL PAIN, BILATERAL LEG SWELLING. PATIENT STATES HE LEFT AMA FROM [facility] TODAY BECAUSE HE WAS NOT RECEIVING ANY CARE AND DECIDED TO COME HERE AND BE EVALUATED. PATIENT STATES HE WAS ADMITTED AT [facility] FOR SAME COMPLAINTS. DENIES HAVING ANY FEVERS, NAUSEA, VOMITING.CBC SHOWS NO LEUKOCYTOSIS, NORMOCYTIC ANEMIA, NO THROMBOCYTOPENIA. CHEMISTRY SHOWS HYPONATREMIA, CREATININE ELEVATED AT 1.5 HOWEVER THIS SEEMS TO BE PATIENT'S BASELINE. ELEVATED TROPONIN OF 237, PATIENT ALSO HAS A HISTORY OF ELEVATED TROPONIN. BNP OF 2730. HOSPITALIST TEAM ACCEPTED ADMISSION. DIFFERENTIAL DIAGNOSIS: ACS, FLUID OVERLOAD, CHF EXACERBATION RATIONALE: TESTS CONSIDERED AND ORDERED SECONDARY TO SHARED DECISION MAKING INCLUDE: LABS, ECG AND RADIOLOGY PREVIOUS OUTSIDE RECORDS REVIEWED: OLD ER VISITS. RISK OF COMPLICATION AND/OR MORBIDITY OR MORTALITY OF PATIENT MANAGEMENT: NONE MEDICATIONS-PER MEDICATION RECONCILIATION NEED FOR HOSPITALIZATION: PATIENT DOES MEET CRITERIA FOR HOSPITALIZATION. NEED FOR EMERGENCY MAJOR/MINOR SURGERY: NO THERE ARE NO SOCIAL CONCERNS WITH THIS PATIENT. PRESCRIPTION DRUG MANAGEMENT PRESCRIPTIONS WILL INCLUDE SYMPTOMATIC CARE PATIENT'S PRIOR EXTERNAL MEDICAL RECORDS FROM OTHER ER VISITS WERE REVIEWED BY ME INDICATED. PRIOR TESTING AND RESULTS FROM PREVIOUS VISITS WERE REVIEWED. PRIOR TESTS WERE TAKEN INTO ACCOUNT WITH MEDICAL DECISION MAKING AND RESOURCE UTILIZATION, INDEPENDENT HISTORIAN/HISTORIANS WERE USED TO OBTAIN COMPLETE MEDICAL HISTORY. I INDEPENDENTLY INTERPRETED THE TEST THAT WERE PERFORMED, RESULTS WERE REVIEWED BY ME AND CONSIDERED FINDINGS ON RADIOLOGY IF ORDERED. MEDICAL MANAGEMENT AND EXAMINATION INTERPRETATION DISCUSSIONS WERE HAD BY ME WITH OTHER QUALIFIED HEALTHCARE PROFESSIONALS INDICATED FOR THE PATIENT'S CARE. DX & DISP Disposition: Inpatient Decision to Admit Date: Oct 27, 2024 Decision to Admit Time: 21:24 Departure Impression: Primary Impression: Anemia Additional Impressions: CHF (congestive heart failure), Fluid overload, Elevated troponin Condition: Stable Referrals: SELF,REFERRAL (PCP) I have reviewed the case, and I agree with, Diagnosis and Plan AFSHAN GOODWIN NP Oct 27, 2024 20:59
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
[2024-10-28] MEDS ORDERED: NITROGLYCERIN 0.4 MG SL TAB SL PRN
[2024-10-28 00:02] VITALS: BP 121/76; PULSE 77; RESP 20; TEMP 97.8
[2024-10-28] MEDS ORDERED: GLIP5TAB15 PO (00:31)
[2024-10-28] MEDS ORDERED: ACET-2743 PO (00:31)
[2024-10-28] MEDS ORDERED: METO25TA6 PO (00:31)
[2024-10-28] MEDS ORDERED: CLOP75TA32 PO (00:31)
[2024-10-28] MEDS ORDERED: ATOR40TA69 PO (00:31)
[2024-10-28] MEDS ORDERED: LEVO750T40 PO (00:31)
[2024-10-28] MEDS ORDERED: LISI5TAB21 PO (00:31)
[2024-10-28] MEDS ORDERED: LEVO50CA4 PO (00:31)
[2024-10-28] MEDS: HEParin 5,000 UNIT VIAL SQ SCH (00:50)
[2024-10-28 02:00] VITALS: O2SAT 96
[2024-10-28 02:15] LABS: APPEARANCE,URINE CLEAR (CLEAR); BILIRUBIN,URINE NEGATIVE (NEGATIVE); COLOR,URINE YELLOW (YELLOW); GLUCOSE, URINE (UA) NEGATIVE (NEGATIVE); KETONES,URINE NEGATIVE (NEGATIVE); LEUKOCYTE ESTERASE ,URINE NEGATIVE Leu/uL (NEGATIVE); NITRATE,URINE NEGATIVE (NEGATIVE); OCCULT BLOOD,URINE NEGATIVE (NEGATIVE); PH,URINE 5.5 (5.0-8.0); PROTEIN,URINE 70 mg/dL (NEGATIVE)
[2024-10-28 02:18] LABS: ADD UA MICROSCOPIC YES
[2024-10-28 02:19] LABS: BACTERIA,URINE None Seen /HPF (None Seen); RBC,URINE 0-1 /HPF (0-1); SQUAMOUS EPITHELIAL CELL,UR Rare /HPF (0-2); WBC,URINE 0-1 /HPF (0-1)
[2024-10-28 02:20] LABS: MUCUS,URINE Rare LPF (None Seen)
[2024-10-28] MEDS: morPHINE 2 MG SYG IVP ONE (02:21)
[2024-10-28 04:00] VITALS: BP 128/74; PULSE 80; RESP 20; TEMP 98.2
[2024-10-28 05:54] LABS: BASOPHILS # (AUTO) 0.02 K/uL (0.00-0.20); BASOPHILS % (AUTO) 0.3 % (0.0-5.0); EOSINOPHILS # (AUTO) 0.03 K/uL (0.00-0.70); EOSINOPHILS % (AUTO) 0.5 % (0.0-8.0); HEMATOCRIT 28.4 % (42-54); IMMATURE GRANULOCYTE ABSOLUTE 0.06 K/uL (0-1); LYMPHOCYTES # (AUTO) 0.6 K/uL (1.0-4.8); LYMPHOCYTES % (AUTO) 9.2 % (21.0-51.0); MEAN CORPUSCULAR HEMOGLOBIN 27.8 pg (27.0-33.0); MEAN CORPUSCULAR HGB CONC 31.3 g/dL (32.0-36.0); MEAN CORPUSCULAR VOLUME 88.8 fL (79-99); MONOCYTES # (AUTO) 0.8 K/uL (0.1-1.0); NEUTROPHILS # (AUTO) 4.9 K/uL (1.8-7.7); NEUTROPHILS % (AUTO) 77.1 % (40.0-77.0); PLATELET COUNT (AUTO) 296 K/uL (130-400); RED CELL DISTRIBUTION WIDTH 22.5 % (11.0-15.5); WHITE BLOOD COUNT (AUTO) 6.3 K/uL (4.8-10.8)
[2024-10-28 06:09] LABS: BILIRUBIN,TOTAL 0.6 mg/dL (0.2-1.0); CREATININE 1.2 mg/dL (0.5-1.3); MAGNESIUM 1.7 mg/dL (1.80-2.40); POTASSIUM 4.2 mmol/L (3.5-5.1); TOTAL PROTEIN, SERUM 5.8 g/dL (6.0-8.3)
[2024-10-28 06:45] LABS: B-TYPE NATRIURETIC PEPTIDE 1600 pg/mL (0-100)
--- NOTE | 2024-10-28 06:53 | EKG ---
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
[2024-10-28] MEDS: FAMOTIDINE 20MG TAB PO SCH (08:47)
[2024-10-28] MEDS: ASPIRIN 81 MG EC TAB PO SCH (08:47)
[2024-10-28] MEDS: furoSEMIDE 20MG VIAL IV SCH (08:47)
[2024-10-28] MEDS: MAGNESIUM 2GM PREMIX 50ML 50 ML IV PRN (08:48)
[2024-10-28 09:05] VITALS: TEMP 98.5
--- NOTE | 2024-10-28 09:09 | PN ---
[facility] PROGRESS NOTE Date of Service: Oct 28, 2024 Time of Service: 09:08 SUBJECTIVE: [ ] 64-year-old male with past medical history of severe ischemic cardiomyopathy, acute on chronic combined diastolic and systolic HF, anteroseptal MIs history, monitor severe admitted regurgitation, diabetes mellitus type 2, hypertension, hyperlipidemia, CKD, CAD and noncompliant with medication to be medical telemetry floor with diagnosis of acute on chronic diastolic and systolic heart failure, elevated troponin possibly due to type 2 demand ischemia OCTAVIO on CKD and abdominal distention. Today on bedside evaluation patient is alert and oriented x3. primary nurse at bedside during assessment. Vitals are stable, heart rate sinus rhythm in the 80s, BP at 134/65. Denies any shortness of breath. H&H is 8.9/28.4, 134, BUN 33, glucose 203, magnesium 1.7, latest high sensitivity troponin is 239, lipid panel is stable. Patient reports having abdominal distention. On assessment patient's abdomen distended, painful with palpation. Ascites, ordering ultrasound. Check stool guaiac. Cardiology was consulted. We will follow up with their recommendations. For now we will continue on IV Lasix 20 mg t.i.d., strict intake and output, daily weights, fluid restriction1 L/daily. Continue heart healthy diet. REVIEW OF SYSTEMS CONSTITUTIONAL: Denies fevers, chills, or night sweats. No unintentional weight loss reported. NEUROLOGICAL: Denies headache, amaurosis fugax, motor weakness, sensory deficit, vertigo/spinning sensation, gait abnormalities, or tremors. ENT: No hearing loss, otalgia, otorrhea, rhinitis, rhinorrhea, hoarseness, or sore throat. CARDIOVASCULAR: Positive chest pain Denies dyspnea on exertion, orthopnea, paroxysmal nocturnal dyspnea, palpitations, life-threatening arrhythmias, claudication. PULMONARY: Denies any shortness of breath, cough, phlegm/sputum, hemoptysis, pleuritic chest pain. SLEEP: Denies morning headaches, daytime somnolence or napping. Denies difficulty falling asleep, staying asleep, waking from sleep. Denies knowledge of snoring. GASTROINTESTINAL: Positive abdominal bloatedness Denies any type of dysphagia to either liquids or solids. Denies nausea, vomiting, pyrosis, early satiety, abdominal pain, diarrhea, constipation, or changes in stool consistency or caliber. Denies coffee-ground emesis, hematemesis, hematochezia, or melanotic stools. GENITOURINARY: Denies frequency, urgency, nocturia, hematuria or incontinence (Storage/Irritative symptoms.) Low urinary stream, straining to void, urinary intermittency or hesitancy, splitting of the voiding stream, terminal dribbling. ENDOCRINOLOGIC: Denies polyuria, polydipsia, polyphagia or heat/cold intolerances. HEMATOLOGIC: Denies thrombophilia/previous clots, or coagulopathy/bleeding disorders. ONCOLOGIC: Denies personal history of malignancy. DERMATOLOGIC: Denies rashes or pruritus. PSYCHIATRIC: Denies any suicidal or homicidal ideation. Denies hallucinations. PHYSICAL EXAM GENERAL APPEARANCE: The patient is awake, alert, and oriented, in no acute cardiopulmonary distress. NEUROLOGICAL: Cranial nerves II-XII grossly intact. Motor is 5/5 in bilateral upper and lower extremities proximal to distal. No sensory deficits. HEENT: Face is symmetric. Pupils are equal and reactive. Extraocular movements are intact. NECK: Supple. No JVD. No thyromegaly. No submental, submandibular, pre- /postauricular, occipital or supraclavicular lymphadenopathy. CHEST: Normal chest expansion. No Telemetry. LUNGS: Absence of any rales, rhonchi or any wheezing. CARDIOVASCULAR: Regular. S1 and S2 normal. No appreciable rubs, murmurs or gallops. ABDOMEN: Soft round and distended There is no rebound, voluntary guarding, or rigidity. : Deferred. No So. EXTREMITIES: edema to bilateral lower extremities SKIN: No skin breakdown. Vital Signs (last 8hr) Date Time Temp Pulse Resp B/P (MAP) Pulse Ox O2 Delivery O2 Flow Rate FiO2 10/28/24 09:05 98.4 91 16 119/80 99 Room Air* 0 21 10/28/24 04:00 98.2 80 20 128/74 97 Room Air 10/28/24 02:00 96 Room Air* 0 21 LABS: Laboratory: Test 10/28/24 05:45 10/28/24 02:00 10/27/24 19:30 Range/Units White Blood Count 6.3 4.8-10.8 K/uL Red Blood Count 3.20 L 4.50-6.20 MIL/uL Hemoglobin 8.9 L 14.0-18.0 g/dL Hematocrit 28.4 L 42-54 % Mean Corpuscular Volume 88.8 79-99 fL Mean Corpuscular Hemoglobin 27.8 27.0-33.0 pg Mean Corpuscular Hemoglobin Concent 31.3 L 32.0-36.0 g/dL Red Cell Distribution Width 22.5 H 11.0-15.5 % Platelet Count 296 130-400 K/uL Mean Platelet Volume 9.5 7.5-10.5 fL Immature Granulocyte % (Auto) 0.9 0-1 % Neutrophils (%) (Auto) 77.1 H 40.0-77.0 % Lymphocytes (%) (Auto) 9.2 L 21.0-51.0 % Monocytes (%) (Auto) 12.0 3.0-13.0 % Eosinophils (%) (Auto) 0.5 0.0-8.0 % Basophils (%) (Auto) 0.3 0.0-5.0 % Neutrophils # (Auto) 4.9 1.8-7.7 K/uL Lymphocytes # (Auto) 0.6 L 1.0-4.8 K/uL Monocytes # (Auto) 0.8 0.1-1.0 K/uL Eosinophils # (Auto) 0.03 0.00-0.70 K/uL Basophils # (Auto) 0.02 0.00-0.20 K/uL Absolute Immature Granulocyte (auto 0.06 0-1 K/uL Nucleated Red Blood Cells 0.0 0.0-0.19 % Sodium Level 134 L 136-145 mmol/L Potassium Level 4.2 3.5-5.1 mmol/L Chloride Level 104 101-111 mmol/L Carbon Dioxide Level 24 21-32 mmol/L Blood Urea Nitrogen 33 H 7-18 mg/dL Creatinine 1.2 0.5-1.3 mg/dL Glomerular Filtration Rate Calc 68 >90 mL/min Random Glucose 203 #H 70-105 mg/dL Total Calcium 7.4 L 8.5-10.1 mg/dL Magnesium Level 1.70 L 1.80-2.40 mg/dL Total Bilirubin 0.6 0.2-1.0 mg/dL Aspartate Amino Transf (AST/SGOT) 16 10-37 U/L Alanine Aminotransferase (ALT/SGPT) 21 12-78 U/L Alkaline Phosphatase 225 H 50-136 U/L Troponin I High Sensitivity 239 *H 4-75 ng/L B-Type Natriuretic Peptide 1600 H 0-100 pg/mL Total Protein 5.8 L 6.0-8.3 g/dL Albumin 2.0 L 3.5-5.0 g/dL Urine Color YELLOW YELLOW Urine Appearance CLEAR CLEAR Urine pH 5.5 5.0-8.0 Urine Specific [place] 1.021 1.001-1.031 Urine Protein 70 H NEGATIVE mg/dL Urine Glucose (UA) NEGATIVE NEGATIVE mg/dL Urine Ketones NEGATIVE NEGATIVE mg/dL Urine Occult Blood NEGATIVE NEGATIVE Urine Nitrate NEGATIVE NEGATIVE Urine Bilirubin NEGATIVE NEGATIVE mg/dL Urine Urobilinogen 2.0 H 0.2-1.0 mg/dL Urine Leukocyte Esterase NEGATIVE NEGATIVE Dami/uL Urine RBC 0-1 0-1 /HPF Urine WBC 0-1 0-1 /HPF Urine Squamous Epithelial Cells Rare 0-2 /HPF Urine Bacteria None Seen None Seen /HPF White Cell Morphology Comment See comments Red Blood Cell Morphology See comments Total Creatine Kinase 101 # 21-232 U/L Current Medications Medications (Trade) Dose Ordered Sig/Mindy Route PRN Reason Start Time Stop Time Status Last Admin Dose Admin Aspirin (Aspirin 81mg Ec Tab) 81 mg DAILY PO 10/28/24 09:00 11/27/24 08:59 10/28/24 08:47 81 MG Famotidine (Pepcid 20mg Tab) 20 mg Q24H PO 10/28/24 09:00 11/27/24 08:59 10/28/24 08:47 20 MG Furosemide (LASix 20MG VIAL) 20 mg Q8H IV 10/28/24 09:00 11/27/24 08:59 10/28/24 08:47 20 MG Heparin Sodium (Porcine) (HEParin 5,000 UNIT VIAL) 5,000 unit Q12H SQ 10/27/24 23:30 11/26/24 23:29 10/28/24 00:50 5,000 UNIT Insulin Human Regular (humuLIN R 100 UNIT/ML 3ML) INSULIN SLIDING SCAL... ACHS SQ 10/28/24 11:30 11/27/24 11:29 Magnesium Sulfate 50 ml @ 0 mls/hr PROTOCOL PRN IV MAGNESIUM PROTOCOL 10/28/24 08:30 3/15/25 08:29 10/28/24 08:48 25 MLS/HR Nitroglycerin (Nitrostat) 0.4 mg AD PRN SL CHEST PAIN 10/28/24 00:00 11/27/24 00:00 DIAGNOSTICS / RADIOLOGY: [ ] ASSESSMENT: Chest pain rule out ACS, POA Volume overload secondary to Acute on chronic systolic and diastolic HF, POA Elevated troponin secondary to type 2 demand ischemia POA Anasarca, POA Acute kidney injury on CKD POA Acute on chronic anemia POA Hypertension POA Diabetes POA Hyperlipidemia POA Homelessness POA Medication compliance PLAN: Admitted to the medical telemetry floor Continue heart healthy diet Continue Lasix 20 mg IV Q 8 hours Continue strict intake and output, daily weights Continue fluid restriction1 L/daily Medications reviewed and reconciled Continue aspirin 81 mg p.o. Trend Troponins Mobile Application Engineer has been consulted Monitoring and replace electrolytes Continue glucometer checks before meals and at bedtime Continue SSI Continue hypoglycemic protocol In reference to abdominal pain/distention: Pending ultrasound abdomen If ascites is confirmed patient to have ultrasound guided paracentesis via IR Pending PT/INR, PTT Monitor BNP Monitor a.m. labs PRN Treatment - Add when necessary meds for nausea, vomiting, pain, constipation, insomnia. DVT/GI prophylaxis- Continue heparin and famotidine at current doses. Full CODE STATUS This document was generated in part using voice recognition software, occasional wrong word or sound alike substitutions may have occurred due to the inherent limitations of voice recognition software. Read the chart carefully and recognize using context, where the substitutions have occurred. Although every effort was made to edit the content, material inspector and typing errors may occur BAILEY THAYER APRN Oct 28, 2024 09:08
--- NOTE | 2024-10-28 09:46 | NUR ---
DR. HACKETT AT BEDSIDE WITH PT.
[2024-10-28 10:16] LABS: CHOLESTEROL 78 mg/dL (<200); HDL CHOLESTEROL 43 mg/dL (29-71); LDL DIRECT 38 mg/dL (0-99); TRIGLYCERIDES 37 mg/dL (30-200)
[2024-10-28] MEDS: INSULIN humuLIN R 100 UNIT/ML 3ML SQ SCH (11:08)
[2024-10-28 11:45] VITALS: BP 134/65; PULSE 86; RESP 16; O2SAT 100
--- NOTE | 2024-10-28 12:06 | NUR ---
HOMELESS Sw very familiar with pt and his situation. Pt reports he stays off and on with his cousin Anton Lopez [phone] at [address] [facility] [address]. Pt states he is now 64 and needs to access SS benefits and if contact info is needed, they can use cousin's. Sw notified Rosa at [facility] of this and she will be out till Fri, but will make contact with pt thru cousin. Pt reports more difficulty walking, pt has no DME or services. Pt has Obama care plan than someone applied him for. Pt won't stay at [facility] and [facility], but will often go there for a meal. Sw left message for Kim for possible assist with applying for SS as well. Addendum: 10/28/24 at 1221 by ADAM HARVEY Amended: Links added.
--- NOTE | 2024-10-28 12:07 | CONS ---
[facility] CARDIOLOGY CONSULTATION REPORT Cardiology consultation note dictated for Silvestre Rankin MD Date Patient Seen: Oct 28, 2024 Requesting Physician: Naye Gr MD Reason for Consultation: Chest pain, Elevated Troponin History of Present Illness: This is a 64-year-old homeless gentleman with a past medical history of hypertension, hyperlipidemia, type 2 diabetes mellitus, polysubstance abuse including cocaine and marijuana use, CKD, CAD status post prior anteroseptal wall CA, severe ischemic cardiomyopathy with recurrent admissions with acute on chronic combined systolic and diastolic congestive heart failure, recurrent admissions with cardiac decompensations associated with troponin elevation, 2D echo on 10/03/2024 with an LVEF of 20%, akinesia of septum, anterior wall, and anterolateral wall, stage III diastolic dysfunction, severe MR, PASP 60mmHg, trace pericardial effusion and ascites who presented to the ED with complaints of chest pain, abdominal pain and bilateral leg edema for approximately one week. Cardiology has been consulted for chest pain and elevated troponin. The patient endorses intermittent chest discomfort described as tightness for one week in duration. Troponin of 237 and 239. EKG demonstrated NSR with a hr of 82bpm, old anterior infarct, no ischemia. BNP of 2730 decreasing to 1600. Albumin 2.0. Chest x-ray with pulmonary vascular congestion and cardiomegaly. He is maintained on Aspirin 81 mg daily, Lasix 20 mg IV every 8 hours, and Heparin 5000u sq q 12hrs. He denies cocaine use, no urine toxicology done. The patient admits to abdominal distention and discomfort. Past Medical History: As per HPI and summarized below. Past Surgical History: Shoulder surgery Family History: Noncontributory Social History: The patient is homeless. Habits: The patient denies cocaine use. Home Meds: None. Current Meds: Current Medications Medications Dose Ordered Sig/Mindy Start Time Stop Time Status Last Admin Famotidine 20 mg Q24H 10/28/24 09:00 11/27/24 08:59 10/28/24 08:47 Furosemide 20 mg Q8H 10/28/24 09:00 11/27/24 08:59 10/28/24 08:47 Aspirin 81 mg DAILY 10/28/24 09:00 11/27/24 08:59 10/28/24 08:47 Heparin Sodium (Porcine) 5,000 unit Q12H 10/27/24 23:30 11/26/24 23:29 10/28/24 11:06 Nitroglycerin 0.4 mg AD PRN 10/28/24 00:00 11/27/24 00:00 Magnesium Sulfate 50 ml @ 0 mls/hr PROTOCOL PRN 10/28/24 08:30 11/27/24 08:29 10/28/24 08:48 Insulin Human Regular INSULIN SLIDING SCAL... ACHS 10/28/24 11:30 11/27/24 11:29 10/28/24 11:08 Review of Systems: CONST: No fever, fatigue, or weight changes. EYES: No recent vision problems. ENT: No congestion, ear pain, or sore throat. C/V: No chest pain, palpitations, or edema. RESP: No cough, congestion, wheezing or shortness of breath. GI: Admits to abdominal pain and bloating. No nausea, vomiting, constipation, or diarrhea. : No incontinence or dysuria. SKIN: No rash. NEURO: No headache, focal numbness or weakness, dizziness, or seizures. PSYCH: No depression or anxiety. HEME: No abnormal bruising or bleeding. LYMPH: No swollen glands. Physical Examination: GENERAL: No acute distress. On room air. Muscle wasting. HEAD: Normal with no signs of head trauma. EYES: PERRLA, EOMI, conjunctiva and sclera normal. ENT: Hearing grossly intact, normal oropharynx. NECK: Positive for JVD. There is no tenderness, lymphadenopathy, or masses. No thyromegaly. Normal carotid upstrokes without bruits. LUNGS: Velcro rales and coarse breath sounds bilaterally. HEART: Normal rate and rhythm. Normal S1 and S2. Holosystolic murmur. VASC: BLE with 1-2+ edema. ABD: Abdominal distension, but soft to touch. : Not examined LYMPH: No lymphadenopathy noted. EXT: No clubbing, cyanosis or edema. SKIN: No rashes or lesions noted. NEURO: Awake, alert, and oriented x3. Drowsy. Vital Signs (last 8hr) Date Time Temp Pulse Resp B/P (MAP) Pulse Ox O2 Delivery O2 Flow Rate FiO2 10/28/24 09:05 98.4 91 16 119/80 99 Room Air* 0 21 10/28/24 04:00 98.2 80 20 128/74 97 Room Air Laboratory: Hematology Labs: Test 10/28/24 05:45 10/27/24 19:30 Range/Units White Blood Count 6.3 4.8-10.8 K/uL Red Blood Count 3.20 L 4.50-6.20 MIL/uL Hemoglobin 8.9 L 14.0-18.0 g/dL Hematocrit 28.4 L 42-54 % Mean Corpuscular Volume 88.8 79-99 fL Mean Corpuscular Hemoglobin 27.8 27.0-33.0 pg Mean Corpuscular Hemoglobin Concent 31.3 L 32.0-36.0 g/dL Red Cell Distribution Width 22.5 H 11.0-15.5 % Platelet Count 296 130-400 K/uL Mean Platelet Volume 9.5 7.5-10.5 fL Immature Granulocyte % (Auto) 0.9 0-1 % Neutrophils (%) (Auto) 77.1 H 40.0-77.0 % Lymphocytes (%) (Auto) 9.2 L 21.0-51.0 % Monocytes (%) (Auto) 12.0 3.0-13.0 % Eosinophils (%) (Auto) 0.5 0.0-8.0 % Basophils (%) (Auto) 0.3 0.0-5.0 % Neutrophils # (Auto) 4.9 1.8-7.7 K/uL Lymphocytes # (Auto) 0.6 L 1.0-4.8 K/uL Monocytes # (Auto) 0.8 0.1-1.0 K/uL Eosinophils # (Auto) 0.03 0.00-0.70 K/uL Basophils # (Auto) 0.02 0.00-0.20 K/uL Absolute Immature Granulocyte (auto 0.06 0-1 K/uL Nucleated Red Blood Cells 0.0 0.0-0.19 % White Cell Morphology Comment See comments Red Blood Cell Morphology See comments Chemistry Labs: Test 10/28/24 11:04 10/28/24 05:45 10/27/24 19:30 Range/Units Whole Blood Glucose 243 H 70-110 MG/DL Sodium Level 134 L 136-145 mmol/L Potassium Level 4.2 3.5-5.1 mmol/L Chloride Level 104 101-111 mmol/L Carbon Dioxide Level 24 21-32 mmol/L Blood Urea Nitrogen 33 H 7-18 mg/dL Creatinine 1.2 0.5-1.3 mg/dL Glomerular Filtration Rate Calc 68 >90 mL/min Random Glucose 203 #H 70-105 mg/dL Total Calcium 7.4 L 8.5-10.1 mg/dL Magnesium Level 1.70 L 1.80-2.40 mg/dL Total Bilirubin 0.6 0.2-1.0 mg/dL Aspartate Amino Transf (AST/SGOT) 16 10-37 U/L Alanine Aminotransferase (ALT/SGPT) 21 12-78 U/L Alkaline Phosphatase 225 H 50-136 U/L Troponin I High Sensitivity 239 *H 4-75 ng/L B-Type Natriuretic Peptide 1600 H 0-100 pg/mL Total Protein 5.8 L 6.0-8.3 g/dL Albumin 2.0 L 3.5-5.0 g/dL Triglycerides Level 37 30-200 mg/dL Cholesterol Level 78 # <200 mg/dL LDL Cholesterol 38 0-99 mg/dL HDL Cholesterol 43 29-71 mg/dL Total Creatine Kinase 101 # 21-232 U/L Diagnostics / Radiology: Impression and Plan: Acute on chronic combined systolic and diastolic heart failure Chest pain Elevated troponin HTN HLD DM type II Homelessness History of polysubstance abuse including cocaine and marijuana use PAD CKD CAD status post prior anteroseptal wall CA Severe ischemic cardiomyopathy with recurrent admissions with acute on chronic combined systolic and diastolic congestive heart failure Recurrent admissions with cardiac decompensations associated with troponin elevation 2D echo on 10/03/2024 with an LVEF of 20%, akinesia of septum, anterior wall, and anterolateral wall, stage III diastolic dysfunction, severe MR, PASP 60mmHg, trace pericardial effusion and ascites Noncompliance Acute on chronic combined systolic and diastolic heart failure BNP of 2730 decreasing to 1600 Chest x-ray with pulmonary vascular congestion and cardiomegaly Positive for JVD, rales, mild orthopnea, BLE edema -Continue Lasix 20 mg IV every 8 hours -Hold beta james due to history of cocaine abuse -Continue Lisinopril 5mg BID Elevated Troponin -no need to trend Trops, 237-239 -likely due to systolic heart failure exacerbation -cocaine + likely trigger for exacerbation Chest pain Troponin of 237 and 239 likely in the setting of acute on chronic heart failure EKG demonstrated NSR with a hr of 82bpm, old anterior infarct, no ischemia -Continue Aspirin 81 mg daily, Atorvastatin 40mg nightly and Heparin 5000u sq q 12hrs. -Hold beta james due to history of cocaine abuse Ascites -Abdominal US pending [employer] Oct 28, 2024 12:07 SILVESTRE RANKIN MD Oct 28, 2024 13:58
--- NOTE | 2024-10-28 12:08 | HMCIMG ---
US ABD LIMITED/ABD WALL REASON: ascites, abdominal distention. COMPARISON: None TECHNIQUE: Limited abdominal ultrasound study was performed for evaluation of ascites. FINDINGS: Mild ascites is seen in the right upper abdomen. IMPRESSION: Moderate ascites.
[2024-10-28 12:12] LABS: HEMOGLOBIN A1C 7.1 % (4.0-6.0)
--- NOTE | 2024-10-28 12:20 | NUR ---
ASSUMED CARE OF PATIENT AAOX3, UP IN ROOM, NOTE MADE OF 3+ PITTING EDEMA TO BLE, SOBE ON EXERTION, VERBALIZES FATIGUE AND ABDOMINAL TIGHTNESS. PLAN OF CARE DISCUSSED, PT AWARE HE I GOING TO HAVE A PARACENTESIS 10/29. CONSENTS PENDING.
[2024-10-28 12:39] LABS: INR 1.05 (0.85-1.15); PROTHROMBIN TIME 11.7 SEC (9.6-11.6)
[2024-10-28 12:57] LABS: AMPHET/METH SCREEN,URINE NEGATIVE (NEGATIVE); BARBITURATE SCREEN, URINE NEGATIVE (NEGATIVE); BENZODIAZEPINES SCREEN,URINE NEGATIVE (NEGATIVE); CANNABINOID SCREEN,URINE POSITIVE (NEGATIVE); COCAINE SCREEN,URINE POSITIVE (NEGATIVE); OPIATE SCREEN,URINE NEGATIVE (NEGATIVE); PHENCYCLIDINE SCREEN,URINE NEGATIVE (NEGATIVE)
--- NOTE | 2024-10-28 13:32 | NUR ---
SIGNED AMA FORM. VERBALIZED UNDERSTANDING OF RISKS. ENCOURAGED TO STAY. STATES TIRED OF WAITING.
--- NOTE | 2024-10-28 13:35 | NUR ---
DEPARTED ER. LEFT AMA WITH ALL BELONGINGS, PIV OUT/SITE TAPED/ NO BLEEDING
[2024-10-28] MEDS ORDERED: atorVAStatin 40 MG TABLET PO SCH (21:00)
[2024-10-28] MEDS ORDERED: metoPROLOL tartRATE 25 MG TAB PO SCH (21:00)
[2024-10-28] MEDS ORDERED: LISINOPRIL 5 MG TABLET PO SCH (21:00)
[2024-10-29] MEDS ORDERED: levoTHYROxine 50 MCG TABLET PO SCH (06:30)
[2024-10-29] MEDS ORDERED: cloPIDOgrel 75MG TAB PO SCH (09:00)
[2024-11-05] MEDS ORDERED: FURO40TA5 PO (14:54)
== END 2024-10-28 13:32 | disposition left against medical advice (07) | DRG 291 ==
LOC: EDH 18:43 → EDHIP 23:19
PROVIDERS: ADMIT Internal Medicine; ATTEND Internal Medicine
DX: I13.0 Hypertensive heart and chronic kidney disease with heart failure and stage 1 through stage 4 chronic kidney disease, or unspecified chronic kidney disease (principal); I50.43 Acute on chronic combined systolic (congestive) and diastolic (congestive) heart failure; N17.9 Acute kidney failure, unspecified; R18.8 Other ascites; Z59.00 Homelessness unspecified; I24.89 Other forms of acute ischemic heart disease; E11.22 Type 2 diabetes mellitus with diabetic chronic kidney disease; E78.5 Hyperlipidemia, unspecified; J44.9 Chronic obstructive pulmonary disease, unspecified; N18.9 Chronic kidney disease, unspecified; Z53.29 Procedure and treatment not carried out because of patient's decision for other reasons; E11.51 Type 2 diabetes mellitus with diabetic peripheral angiopathy without gangrene; D63.1 Anemia in chronic kidney disease; M54.9 Dorsalgia, unspecified; G89.29 Other chronic pain; F43.10 Post-traumatic stress disorder, unspecified; I34.0 Nonrheumatic mitral (valve) insufficiency; I25.5 Ischemic cardiomyopathy; I25.10 Atherosclerotic heart disease of native coronary artery without angina pectoris; Z91.148 Patient's other noncompliance with medication regimen for other reason; Z79.82 Long term (current) use of aspirin; Z82.49 Family history of ischemic heart disease and other diseases of the circulatory system; Z79.899 Other long term (current) drug therapy; I25.2 Old myocardial infarction; Z83.3 Family history of diabetes mellitus
CPT/HCPCS: 36415; 71045; 76705; 80048; 80053; 80061; 80305; 81001; 82550; 82948; 83036; 83735; 83880; 84484; 85025; 85610; 85730; 93005; 99285; G0378; J1644; J1815; J1940; J2270; J3475